=== PATIENT | female | born 1945 | race Caucasian/White ===

== ENCOUNTER 2017-03-01 17:47 | Inpatient (IN) | payer MEDICARE, OTHER ==
[~2017-03-01] VITALS: Ht 154.9 cm; Wt 102.4 kg
[~2017-03-01 17:47] MED LIST: /DULO30CA OR; /ROPI5TA OR; ACET30TAB PO; ALBU17IN INH; ALBU17IN2 INH; ALLO100T OR; AMIT25TA2 OR; AMIT50TA PO; ASPI81TA83 OR; BACT800T5 PO; BISO5TAB5 PO; BUME1TA PO; BUTA1CAP PO; CAND16TA OR; COMBVENT INH; COZA25TA8 OR; DRIS50002 PO; FIORCAP3 PO; GLUC1000 OR; GLUCTAB PO; HYDR-3713 PO; K-TA10TA2 PO; LASI40TA OR; LEVE750XR PO; LIPI80TA PO; MECL-68 PO; METF-414 PO; MILKSUS PO; MYSO50TA5 PO; NEOSLIQ TOP; NITR0.4S SL; OMEP20TA7 OR; PERC5TAB8 OR; PROTPAK PO; ROPI3TAB PO; SPIR25TA2 PO; TRAM50TA2 OR; TYLETAB3 PO; VENL150C43 PO; VITAMIN D50000 UNT OR; VOLT1GEL EX; XANA0.25 OR; ZEBE5TAB PO; ZIAC2.5T PO; ZOCO40TA OR; [UNRECOGNIZED DRUG - CODE] OR
[2017-03-01] MEDS ORDERED: LASI40TA PO (18:05)
[2017-03-01] MEDS ORDERED: PLAV75TA38 PO (18:05)
[2017-03-01] MEDS ORDERED: OXYC20TA2 PO (18:05)
[2017-03-01] MEDS ORDERED: ONDANSETRON 4MG/2ML VIAL (J2405) IV ONE (19:45)
[2017-03-01] MEDS ORDERED: MORPHINE 4 MG/ML 1ML SYRINGE IV ONE (19:45)
[2017-03-01 20:27] LABS: BASO % 0.4 % (0.0-1.0); EOS # 0.5 K/mm3 (0.0-0.50); EOS % 5.6 % (0.0-3.0); LARGE UNSTAINED CELL # 0.2 K/mm3 (0.0-0.4); LARGE UNSTAINED CELL % 1.8 % (0.0-4.0); LYMPH # 1.8 K/mm3 (1.5-4.5); LYMPH % 21.7 % (24.0-44.0); MEAN CORPUSCULAR HEMOGLOBIN 27.9 pg (27.0-33.0); MEAN CORPUSCULAR HGB CONC 31.8 g/dl (32.0-36.5); MEAN CORPUSCULAR VOLUME 87.7 fl (80.0-96.0); MONO # 0.5 K/mm3 (0.0-0.8); MONO % 6.1 % (0.0-5.0); NEUTROPHILS # 5.4 K/mm3 (1.8-7.7); NEUTROPHILS % 64.3 % (36.0-66.0); PLATELET COUNT, AUTOMATED 263 k/mm3 (150-450); RED CELL DISTRIBUTION WIDTH 14.9 % (11.5-14.5); WHITE BLOOD COUNT 8.4 K/mm3 (4.0-10.0)
[2017-03-01 20:50] LABS: CALCIUM LEVEL 9.3 MG/DL (8.8-10.2); CREATININE FOR GFR 1.29 MG/DL (0.55-1.02); GLOMERULAR FILTRATION RATE 43.4 (>39); POTASSIUM SERUM 4.3 MEQ/L (3.5-5.1)
[2017-03-01] MEDS: HumaLOG INSULIN (NovoLOG) PER UNIT SC SCH (21:00)
[2017-03-01] MEDS ORDERED: MORPHINE 4 MG/ML 1ML SYRINGE IV PRN (22:00)
[2017-03-01] MEDS ORDERED: ONDANSETRON 4MG/2ML VIAL (J2405) IV PRN (22:45)
[2017-03-01] MEDS ORDERED: BUME1TA PO (23:08)
[2017-03-01] MEDS ORDERED: LEVE750T5 PO (23:08)
[2017-03-01] MEDS ORDERED: VITA500T3 PO (23:14)
[2017-03-01] MEDS ORDERED: METO25TA74 PO (23:14)
[2017-03-01] MEDS ORDERED: GABA-283 PO (23:14)
[2017-03-01] MEDS ORDERED: PANT40TA2 PO (23:14)
[2017-03-01] MEDS ORDERED: NITR0.4S14 SL (23:14)
[2017-03-01] MEDS ORDERED: MAG-TAB PO (23:14)
[2017-03-01] MEDS ORDERED: EFFE75CA75 PO (23:14)
[2017-03-01] MEDS ORDERED: VITA100037 PO (23:14)
[2017-03-01] MEDS ORDERED: AMLO5TAB2 PO (23:14)
[2017-03-01] MEDS ORDERED: REQU4TAB3 PO (23:14)
[2017-03-01] MEDS ORDERED: ANAS1TAB PO (23:14)
[2017-03-01] MEDS ORDERED: POTA10TA16 PO (23:14)
[2017-03-01] MEDS ORDERED: OXYC10TA12 PO (23:14)
[2017-03-01] MEDS ORDERED: NITROGLYCERIN 0.4 MG SUBL TABLET SL PRN (23:30)
[2017-03-01] MEDS ORDERED: ALBUTEROL 90 MCG/ACT 8GM HFA INHALER INH PRN (23:30)
[2017-03-01] MEDS ORDERED: GLUCAGON FOR INJ 1 MG VIAL (J1610) SC PRN (23:30)
[2017-03-01] MEDS ORDERED: GLUCOSE 4 GM CHEW TABLET PO PRN (23:30)
[2017-03-01] MEDS ORDERED: DEXTROSE 50% 50 ML SYRINGE IV PRN (23:30)
[2017-03-02] VITALS (10 sets, daily range): BP systolic 116–175; BP diastolic 5–73
[2017-03-02] MEDS: AMITRIPTYLINE 50 MG TAB PO SCH ×3 (00:13→20:24)
[2017-03-02] MEDS: levETIRAcetam 250MG TABLET (KEPPRA) PO SCH ×3 (00:14→20:24)
[2017-03-02] MEDS: GABAPENTIN 400 MG CAP PO SCH ×2 (00:14→20:24)
[2017-03-02] MEDS: PANTOPRAZOLE 40MG TAB (PROTONIX) PO SCH ×3 (00:15→20:24)
[2017-03-02] MEDS: rOPINIRole 1MG TAB PO SCH ×3 (00:16→20:23)
[2017-03-02] MEDS: oxyCODONE 5MG TAB PO PRN ×2 (00:18→12:59)
[2017-03-02] MEDS: ACETAMINOPHEN TAB 650MG DOSE (2X325MG) PO PRN ×2 (02:28→20:24)
[2017-03-02] MEDS ORDERED: HEPARIN SOD (PORCINE) 5000 UNITS/ML VIAL SC SCH (06:00)
--- NOTE | 2017-03-02 06:11 | HPE ---
DATE OF ADMISSION: 03/01/2017 PRIMARY CARE PROVIDER: Dr. Rosa Lipscomb. CHEF MANAGER: Dr. Ed Reyna. NEUROLOGIST: Dr. Guillory GASTROINTESTINAL SPECIALIST: Dr. Brown. HISTORY OF PRESENT ILLNESS: Patient is a 71-year-old female with a past medical history significant for congestive heart failure, seizure disorder, chronic kidney disease (CKD), diabetes, "liver cirrhosis," rheumatoid arthritis , abdominal hernia status post surgical repair, questionable cerebrovascular accident (CVA). Patient also has a history of rheumatoid arthritis, but patient could not take any medications. Patient was told she has liver cirrhosis, diagnosed by Dr. Brown, and it was suspected it was drug induced. She presented to [facility] on 03/01/2017 after a syncopal episode. Patient was traveling between [place] and [place] on 03/01/2017. When patient was trying to take the garbage out, patient fell on her porch. Patient does not have recollection how long she passed out. After she regained consciousness, she was on the ground for 20 minutes due to inability to get up from the ground. The whole event was unwitnessed. After 20 minutes of lying on the floor patient calling for help, then patient was brought in by the ambulance. Patient denies any tongue biting, loss of bowel or bladder control. No similar episode occurred in the past, but patient noted to have frequent falls in the last 1-2 years. Denies any associated symptoms. Patient was hospitalized for [place] in [facility] in [place] for micro stroke versus transient ischemic attack (TIA). Patient was not sure about the diagnosis. Patient does have seizure disorder, and patient stated she has been very compliant with her medications. MEDICAL HISTORY: 1. Congestive heart failure. Patient unsure about the type. 2. Seizure disorder, followed by Dr. Guillory in the past. 3. CKD. 4. Diabetes. 5. "Liver cirrhosis." 6. Rheumatoid arthritis. 7. CVA in December 2016. 8. Chronic abdominal open wound for 3 years, resolved in the last 3 weeks. 9. Abdominal hernia status post surgical repair. 10. History of diverticulitis. PAST SURGICAL HISTORY: 1. Colon resection. 2. Bilateral knee replacements. 3. Lymph node biopsy and lumpectomy. ALLERGIES: SOFI INHIBITOR (cough), BUPROPION (weight gain, CIPROFLOXACIN ( unable to ambulate with dizziness and frequent falls), PENTAZOCINE. SOCIAL HISTORY: Denied tobacco use. Drinks alcohol occasionally. Denies recreational drug use. Patient full code. HOME MEDICATIONS: - albuterol two puff inhalation every 4 hours as needed - amitriptyline 50 mg by mouth twice a day - amlodipine 5 mg by mouth daily - anastrozole 1 mg by mouth daily - Lipitor 80 mg by mouth daily - bisoprolol 2.5 mg by mouth daily - bumetanide 1 mg by mouth at bedtime - Plavix 75 mg by mouth daily - vitamin B12 at 1000 mcg by mouth daily - Lasix 40 mg by mouth daily - gabapentin 400 mg by mouth at bedtime - levetiracetam 750 mg by mouth twice a day - magnesium chloride 70 mg by mouth twice a day - metformin 1000 mg by mouth daily - metoprolol succinate 25 mg by mouth daily - nitroglycerine 0.4 mg sublingual as needed for chest pain - oxycodone 10 mg by mouth twice a day as needed - pantoprazole 40 mg by mouth twice a day - potassium chloride 10 mEq by mouth daily - Requip 4 mg by mouth twice a day - spironolactone 25 mg by mouth daily - Effexor 75 mg by mouth daily - vitamin D 50,000 units by mouth weekly on Sundays REVIEW OF SYSTEMS: GENERAL: No fever. No chills. HEENT: No vision change. No auditory changes. CARDIOVASCULAR: No chest pain. No palpitations. History of congestive heart failure with unknown type. RESPIRATORY: Denies any cough or sputum production. No wheezes. GASTROINTESTINAL: Patient was diagnosed with liver cirrhosis by Dr. Brown many years ago, and it was suspected to be medication induced. Patient also had colon resection from previous infection. Patient also had abdominal hernia, status post surgical repair. Denies any nausea, vomiting, abdominal pain, or diarrhea. MUSCULOSKELETAL: History of rheumatoid arthritis, not on any active treatments. Patient has chronic joint pain, which causes gait instability, and patient has frequent falls in the last 1-2 years. NEUROLOGIC: History of seizure disorders. States she is compliant with the medications. Patient was diagnosed with CVA in [facility] in [place] 2 months ago. Patient had unwitnessed loss of consciousness on 2016. Patient had decreased sensation in the lower extremities. Denies any new numbness or tingling. PHYSICAL EXAMINATION: VITAL SIGNS: Temperature is 97.6, pulse is 55, respirations 18, blood pressure is 146/110, pulse oxygenation 95% in room air. GENERAL: Morbidly obese. No sign of acute distress. Alert and oriented times three. HEENT: Normocephalic, atraumatic. Extraocular motion grossly intact. CARDIOVASCULAR: Distant heart sounds. Positive S1, S2, regular rate. LUNGS: Clear to auscultation bilaterally. No wheezes or rhonchi. ABDOMEN: Morbidly obese. Abdomen is soft, nontender, nondistended. Bowel sounds present. There is old surgical scar from previous abdominal surgery. There is a healing wound near the umbilicus. No drainage. No bleeding. No foul smell. LOWER EXTREMITIES: Mild pitting edema bilaterally. No sign of cyanosis. There is mild deformity of the feet, more significant on the left foot. NEUROLOGIC: Sensation to fine touch decreased, bilateral lower feet. Otherwise , sensation to fine touch grossly intact. Muscle strength 5/5. LABORATORY DATA: WBC is 8.4, hemoglobin 11, hematocrit 34.6, platelet count is 263. Sodium is 143, potassium 4.3, chloride 103, carbon dioxide 33, BUN 32, creatinine 1.29, GFR is 43.4, fasting glucose 89, calcium is 9.3. Troponin I is less than 0.02. TSH 2.6. Alcohol level is normal. IMAGING STUDIES: CT of the chest without contrast: Official report pending. Preliminary results show no acute findings. CT of the head without contrast: Official report pending. No preliminary report available. ASSESSMENT AND PLAN: 1. Syncope. Patient admitted to progressive care unit (PCU) under inpatient status. Differential includes seizure disorder versus symptomatic bradycardia versus medication induced. Patient will have an electroencephalogram (EEG). Will follow with MRI of the brain. Will obtain the medical record from Dr. Rosa Lipscomb in [place], [place]. Will also obtain the record from [facility]. After patient's medication reviewed by the medication historian, it showed several conflicts. For example, patient is taking two beta blockers and two loop diuretics. Patient is taking bisoprolol and metoprolol. Patient also taking Lasix and Bumex. It does raise concern for patient's care. Patient is also taking a significant amount of neurological medications for seizures, restless legs, and patient is also taking multiple psychiatric medications. All those medications can cause patient's syncope; however, those medications cannot stop abruptly. 2. Congestive heart failure with unknown type. We do not have echocardiogram in [facility]. Will follow with new echo tomorrow. One of patient' s loop diuretics is discontinued. Patient is continued on spironolactone. Currently, patient does not show significant sign of fluid overload. 3. Chronic kidney disease. Continue to monitor. 4. Diabetes. Follow with A1c. Patient is on sliding scale and consistent- carbohydrate diet. 5. Questionable liver cirrhosis, diagnosed by Dr. Brown many years ago. Per patient, patient was taking some stomach medication, and patient was told the medication was withdrawn from the market due to side effects for causing liver cirrhosis, but patient does not remember the name of the medication. Will follow with a hepatitis panel and will follow with . Will check ammonia level tomorrow. 6. History of rheumatoid arthritis, not on any active treatments. 7. CVA. Per patient, patient was told she had either transient ischemic attack (TIA) versus micro stroke. The patient was hospitalized in [facility] in [place], [place] [id number]. Will obtain the record. Patient is on aspirin, Plavix, and atorvastatin. 8. Abdominal hernia, status post surgical repair, plus patient history of colon resection for infection. 9. History of chronic open wound near the umbilicus. Patient had a chronic wound for 3 years. Patient had followup with wound clinic in the past, and the wound has healed in the last 3 weeks. 10. History of restless legs syndrome. Continue home medications. 11. Seizure disorder. Patient is on Keppra. 12. Deep venous thrombosis (DVT) prophylaxis. Patient will be on thromboembolic deterrents (TEDs) and sequential compression devices. MTDD
--- NOTE | 2017-03-02 06:45 | ECGEPIP ---
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
[2017-03-02] MEDS: HumaLOG INSULIN (NovoLOG) PER UNIT SC SCH ×4 (07:28→20:26)
--- NOTE | 2017-03-02 07:39 | REP ---
Clinical: Syncope . Findings: Age-related atrophy and microvascular ischemic changes are appreciated. The ventricles and sulci are symmetric. Mitchell-white differentiation is maintained. There is no evidence for acute intracranial hemorrhage, mass/mass effect, pathology or infarction. No extra-axial fluid collection. Calvarium is intact. Paranasal sinuses and mastoid air cells are clear. Impression: Age related atrophy and microvascular ischemic changes. No acute intracranial hemorrhage, infarction, or mass/mass effect. Signed by Crow Charles MD 03/01/2017 07:59 P
--- NOTE | 2017-03-02 08:18 | REP ---
BILATERAL HIP RADIOGRAPHS: CLINICAL: Trauma. Fall. TECHNIQUE: Neutral and frog lateral views of the bilateral hips. COMPARISON: 04/18/2012 Moderate to early advanced symmetric degenerative changes noted. No acute fracture or dislocation. Surrounding soft tissues are unremarkable. IMPRESSION: Moderate to early advanced symmetric degenerative changes. No acute fracture or dislocation. MTDD
[2017-03-02 08:26] LABS: INR 1.23
[2017-03-02 08:29] LABS: MEAN CORPUSCULAR HEMOGLOBIN 27.5 pg (27.0-33.0); MEAN CORPUSCULAR HGB CONC 31.6 g/dl (32.0-36.5); RED CELL DISTRIBUTION WIDTH 14.8 % (11.5-14.5); WHITE BLOOD COUNT 5.8 K/mm3 (4.0-10.0)
--- NOTE | 2017-03-02 08:32 | REP ---
Clinical: Back and rib pain with recent trauma. Findings: The bilateral lung zepeda are well-aerated, symmetric and clear. Minimal scattered age-related interstitial changes are identified primarily involving the left lower lobe. No focal consolidation/contusion, nodule or mass lesion. No pleural effusion/reaction or pneumothorax. Tracheobronchial tree is patent. The mediastinum demonstrates atherosclerotic changes to the thoracic aorta and coronary arteries without aortic aneurysm, cardiomegaly or pericardial effusion. No obvious adenopathy. Surrounding musculoskeletal structures demonstrate age-related degenerative changes without obvious acute trauma/injury. Limited evaluation of the upper abdomen demonstrates normal bilateral adrenal glands as well as evidence of prior gastric bypass surgery and cholecystectomy. Impression: Age-related and postsurgical changes. No acute mediastinal or pleuroparenchymal process appreciated. No evidence for acute injury/trauma. Signed by Crow Charles MD 03/02/2017 08:23 A
[2017-03-02 08:35] LABS: ALBUMIN 3.1 GM/DL (3.2-5.2); ALBUMIN/GLOBULIN RATIO 0.84 (1.00-1.93); BILIRUBIN,TOTAL 0.3 MG/DL (0.2-1.0); CALCIUM LEVEL 8.4 MG/DL (8.8-10.2); CREATININE FOR GFR 1.3 MG/DL (0.55-1.02); POTASSIUM SERUM 4.2 MEQ/L (3.5-5.1); TOTAL PROTEIN 6.8 GM/DL (6.4-8.2)
[2017-03-02] MEDS: VITAMIN D 1,000 INTERNATIONAL UNITS TABLET PO SCH (08:53)
[2017-03-02] MEDS: ATORVASTATIN 20 MG TAB PO SCH (08:53)
[2017-03-02] MEDS: CLOPIDOGREL 75 MG TAB PO SCH (08:53)
[2017-03-02] MEDS: POTASSIUM CHLORIDE 10 MEQ SR TABLET PO SCH (08:54)
[2017-03-02] MEDS: VENLAFAXINE **XR** 75MG CAPSULE PO SCH (08:54)
[2017-03-02] MEDS: ANASTROZOLE 1 MG TAB PO SCH (08:55)
[2017-03-02] MEDS: CYANOCOBALAMIN 500 MCG TAB PO SCH (08:56)
[2017-03-02] MEDS: amLODIPine 5 MG TAB PO SCH (08:56)
[2017-03-02] MEDS ORDERED: SPIRONOLACTONE 25 MG TAB PO SCH (09:00)
[2017-03-02] MEDS ORDERED: FUROSEMIDE 40 MG TAB PO SCH (09:00)
--- NOTE | 2017-03-02 09:15 | REP ---
BILATERAL KNEE RADIOGRAPHS: CLINICAL: Trauma. Fall. TECHNIQUE: AP and lateral views of the right and left knee. COMPARISON: 04/06/2011. FINDINGS: Patient is status post bilateral knee arthroplasty. Age related changes and postsurgical degenerative changes are appreciated. No acute fracture or dislocation. IMPRESSION: Status post bilateral arthroplasty. No acute fracture or dislocation. Unreviewed
--- NOTE | 2017-03-02 13:09 | REP ---
MRI BRAIN WITHOUT CONTRAST: 03/02/2017 COMPARISON: CT brain 03/01/2017, MRI brain 02/26/2011. CLINICAL HISTORY: History of CVA, syncope. TECHNIQUE: Sagittal T1, axial T1, T2, FLAIR, gradient echo, diffusion-weighted images, and ADC mapping sequences performed. FINDINGS: The axial images show ventricles midline, symmetric, and without dilatation or displacement from the midline. The basal ganglia show no significant or focal abnormalities. Third and fourth ventricles intact. There are numerous deep central and subcortical white matter hyperintense T2 and FLAIR foci in both hemispheres, similar to previous study. I do not see evidence of acute infarct, edema, mass, mass effect, or hemorrhage within the parenchymal or cerebral hemispheres. There is no extra-axial fluid collection. Midline shows the corpus callosum, optic chiasm, and pituitary intact. Posterior fossa of the brainstem is intact. The cerebellum shows no atrophy or mass. There is no intra- or extra-axial hemorrhage in the posterior fossa. Basal cisterns unremarkable. The seventh/eighth cranial nerves and mastoids intact. Visualized sinuses unremarkable. Orbits and contents intact. The diffusion-weighted images and ADC mapping sequences show no evidence of acute ischemia. IMPRESSION: 1. Chronic small vessel white matter ischemic changes of aging in both cerebral hemispheres with no evidence of significant atrophy, intracranial hemorrhage, mass, mass effect, or edema. 2. Posterior fossa intact. Basal cisterns intact with visualized sinuses and mastoids clear. Diffusion-weighted images unremarkable. Signed by Reji Mejia MD 03/02/2017 01:28 P
[2017-03-03] MEDS: oxyCODONE 5MG TAB PO PRN ×3 (00:19→16:26)
[2017-03-03 04:51] VITALS: BP_SYST 113; BP_SYST 81; BP_SYST 96; BP_DIAS 49; BP_DIAS 51; BP_DIAS 56
[2017-03-03 05:11] LABS: MEAN CORPUSCULAR HEMOGLOBIN 27.9 pg (27.0-33.0); MEAN CORPUSCULAR HGB CONC 31.5 g/dl (32.0-36.5); MEAN CORPUSCULAR VOLUME 88.5 fl (80.0-96.0); RED CELL DISTRIBUTION WIDTH 14.6 % (11.5-14.5); WHITE BLOOD COUNT 7.2 K/mm3 (4.0-10.0)
[2017-03-03 05:29] LABS: ALBUMIN 2.9 GM/DL (3.2-5.2); ALBUMIN/GLOBULIN RATIO 0.73 (1.00-1.93); BILIRUBIN,TOTAL 0.3 MG/DL (0.2-1.0); CALCIUM LEVEL 8.4 MG/DL (8.8-10.2); CREATININE FOR GFR 1.49 MG/DL (0.55-1.02); GLOMERULAR FILTRATION RATE 36.7 (>39); POTASSIUM SERUM 4.2 MEQ/L (3.5-5.1); TOTAL PROTEIN 6.9 GM/DL (6.4-8.2)
[2017-03-03] MEDS ORDERED: SODIUM CHLORIDE 0.9% 1000 ML IV ONE (05:30)
[2017-03-03 07:30] VITALS: BP 116/58
[2017-03-03] MEDS: HumaLOG INSULIN (NovoLOG) PER UNIT SC SCH ×4 (07:30→20:39)
--- NOTE | 2017-03-03 08:09 | IPNPDOC ---
Subjective Date Seen The patient was seen on 03/02/17. Subjective Chief Complaint/HPI The patient is a 71-year-old female admitted with a reason for visit of Syncope. General: Denies: ROS Unobtainable, Chills, Night Sweats, Fatigue, Malaise, Normal Appetite, Other Symptoms Constitutional: Denies: Chills, Fever, Malaise, Night Sweats, Weakness, Fatigue , Weight Loss, Lethargy, Other Eyes: Denies: Pain, Vision change, Conjunctivae inflammation, Eyelid inflammation, Redness, Other ENT: Denies: Head Aches, Ear Pain, Dysphagia, Sinus Congestion, Post Nasal Drip , Sore Throat, Epistaxis, Other Symptoms Skin: Denies: Rash, Lesions, Jaundice, Bruising, Itching, Dry, Breakdown, Nail Changes, Other Pulmonary: Denies: Dyspnea, Cough, Pleuritic Chest Pain, Other Symptoms Cardiovascular: Denies: Chest Pain, Palpitations, Orthopnea, Paroxysmal Noc. Dyspnea, Edema, Lt Headedness, Other Symptoms Gastrointestinal: Denies: Nausea, Vomiting, Abdominal Pain, Diarrhea, Constipation, Melena, Hematochezia, Other Symptoms Objective Physical Examination General Exam: Positive: Alert, Cooperative, No Acute Distress Eye Exam: Positive: Conjunctiva & lids normal, EOMI, Negative: Sclera icteric ENT Exam: Positive: Atraumatic Neck Exam: Positive: Supple Chest Exam: Positive: Clear to auscultation, Normal air movement Heart Exam: Positive: Rate Normal, Regular Rhythm Telemetry: Positive: No significant arrhythmia Abdomen Exam: Positive: Normal bowel sounds, Soft, Negative: Tenderness Extremity Exam: Positive: Edema Psych Exam: Positive: Oriented x 3 Assessment /Plan Problems (1) Syncope Status: Acute Discussed With: Patient Problem Specific Plan: Consult Specialist, Monitor Clinically, Repeat Labs, Repeat Tests Problem Text: Unclear etiology. Telemetry monitoring, EEG, MRI brain. Check orthostatics. (2) CHF (congestive heart failure) Status: Chronic Discussed With: Patient Problem Specific Plan: Monitor Clinically (3) Seizure disorder Status: Chronic Discussed With: Patient Problem Specific Plan: Monitor Clinically, Repeat Labs Problem Text: Raiza. Check levels. (4) CKD (chronic kidney disease) Status: Chronic Discussed With: Patient Problem Specific Plan: Repeat Labs Problem Text: nephrology c/s pending lasix/aldactone on hold ua pending (5) Diabetes Status: Chronic Discussed With: Patient Problem Specific Plan: Repeat Labs Problem Text: ISS (6) Rheumatoid arthritis (7) CVA (cerebral vascular accident) Status: Chronic Discussed With: Patient Problem Specific Plan: Monitor Clinically Problem Text: As per patient. Continue asa,plavix,atorvastatin. (8) Incisional hernia Status: Acute (9) HTN (hypertension) Status: Chronic Discussed With: Patient Problem Specific Plan: Monitor Clinically, Repeat Tests Problem Text: norvasc as per home meds patient is orthostatic lasix/aldactone on hold Plan/VTE VTE Prophylaxis Ordered?: Yes (mechanical) Plan Diet: Continue Current Activity: Continue Current Therapy: PT Diagnostics: Repeat Labs in AM Anticipated Discharge: Home With Services, Assisted Living VS, I&O, [facility] Vital Signs/I&O Vital Signs Date Time Temp Pulse Resp B/P (MAP) Pulse Ox O2 Delivery O2 Flow Rate FiO2 03/02/17 08:56 50 133/67 03/02/17 08:00 98.0 18 98 Room Air Laboratory Data 24H LABS Laboratory Tests 2 03/01/17 20:18: White Blood Count 8.4, Red Blood Count 3.95L, Hemoglobin 11.0L, Hematocrit 34.6L , Mean Corpuscular Volume 87.7, Mean Corpuscular Hemoglobin 27.9, Mean Corpuscular Hemoglobin Concent 31.8L, Red Cell Distribution Width 14.9H, Platelet Count 263, Neutrophils (%) (Auto) 64.3, Lymphocytes (%) (Auto) 21.7L, Monocytes (%) (Auto) 6.1H, Eosinophils (%) (Auto) 5.6H, Basophils (%) (Auto) 0.4 , Neutrophils # (Auto) 5.4, Lymphocytes # (Auto) 1.8, Monocytes # (Auto) 0.5, Eosinophils # (Auto) 0.5, Basophils # (Auto) 0.0, Large Unclassified Cells % 1.8 , Large Unclassified Cells # 0.2, Anion Gap 7L, Glomerular Filtration Rate 43.4 , Blood Urea Nitrogen 32H, Creatinine 1.29H, Sodium Level 143, Potassium Level 4.3, Chloride Level 103, Carbon Dioxide Level 33H, Calcium Level 9.3, Total Creatine Kinase 121, Creatine Kinase MB 1.3, Creatine Kinase MB Relative Index 1.07, Troponin I < 0.02, Thyroid Stimulating Hormone (TSH) 2.610, Ethyl Alcohol Level 0.004 03/01/17 20:32: Bedside Glucose (Misc Panel) 97 03/01/17 23:28: Bedside Glucose (Misc Panel) 103 03/02/17 08:04: Anion Gap 6L, Glomerular Filtration Rate 43.0, Blood Urea Nitrogen 32H, Creatinine 1.30H, Sodium Level 144, Potassium Level 4.2, Chloride Level 103, Carbon Dioxide Level 35H, Calcium Level 8.4L, Prothrombin Time 15.6H, Prothromb Time International Ratio 1.23, Estimated Mean Plasma Glucose 108, Hemoglobin A1c 5.4, Aspartate Amino Transf (AST/SGOT) 68H, Alanine Aminotransferase (ALT/ SGPT) 40, Alkaline Phosphatase 93, Total Bilirubin 0.3, Total Protein 6.8, Albumin 3.1L, B-Type Natriuretic Peptide 180H, Albumin/Globulin Ratio 0.84L CBC/BMP Laboratory Tests 03/01/17 20:18 Red Blood Count 3.95 L, Mean Corpuscular Volume 87.7, Mean Corpuscular Hemoglobin 27.9, Mean Corpuscular Hemoglobin Concent 31.8 L, Red Cell Distribution Width 14.9 H, Neutrophils (%) (Auto) 64.3, Lymphocytes (%) (Auto) 21.7 L, Monocytes (%) (Auto) 6.1 H, Eosinophils (%) (Auto) 5.6 H, Basophils (%) (Auto) 0.4, Neutrophils # (Auto) 5.4, Lymphocytes # (Auto) 1.8, Monocytes # ( Auto) 0.5, Eosinophils # (Auto) 0.5, Basophils # (Auto) 0.0, Calcium Level 9.3 03/02/17 08:04 Red Blood Count 3.50 L, Mean Corpuscular Volume 87.0, Mean Corpuscular Hemoglobin 27.5, Mean Corpuscular Hemoglobin Concent 31.6 L, Red Cell Distribution Width 14.8 H, Calcium Level 8.4 L, Aspartate Amino Transf (AST/SGOT ) 68 H, Alanine Aminotransferase (ALT/SGPT) 40, Alkaline Phosphatase 93, Total Bilirubin 0.3, Total Protein 6.8, Albumin 3.1 L MARIAELENA DONIS MD March 02, 2017 10:18
--- NOTE | 2017-03-03 08:16 | IPNPDOC ---
Subjective Date Seen The patient was seen on 03/03/17. Subjective Chief Complaint/HPI The patient is a 71-year-old female admitted with a reason for visit of Syncope. General: Denies: ROS Unobtainable, Chills, Night Sweats, Fatigue, Malaise, Normal Appetite, Other Symptoms Constitutional: Denies: Chills, Fever, Malaise, Night Sweats, Weakness, Fatigue , Weight Loss, Lethargy, Other Eyes: Denies: Pain, Vision change, Conjunctivae inflammation, Eyelid inflammation, Redness, Other ENT: Denies: Head Aches, Ear Pain, Dysphagia, Sinus Congestion, Post Nasal Drip , Sore Throat, Epistaxis, Other Symptoms Skin: Denies: Rash, Lesions, Jaundice, Bruising, Itching, Dry, Breakdown, Nail Changes, Other Pulmonary: Denies: Dyspnea, Cough, Pleuritic Chest Pain, Other Symptoms Cardiovascular: Denies: Chest Pain, Palpitations, Orthopnea, Paroxysmal Noc. Dyspnea, Edema, Lt Headedness, Other Symptoms Gastrointestinal: Reports: Constipation, Denies: Nausea, Vomiting, Abdominal Pain, Diarrhea, Melena, Hematochezia, Other Symptoms Genitourinary: Denies: Dysuria, Frequency, Incontinence, Hematuria, Retention, Other Symptoms Musculoskeletal: Reports: Back Pain, Shoulder Pain Objective Physical Examination General Exam: Positive: Alert, Cooperative, No Acute Distress Eye Exam: Positive: Conjunctiva & lids normal, EOMI, Negative: Sclera icteric ENT Exam: Positive: Atraumatic Neck Exam: Positive: Supple Chest Exam: Positive: Clear to auscultation, Normal air movement Heart Exam: Positive: Rate Normal, Regular Rhythm Telemetry: Positive: No significant arrhythmia, Bradycardia (episodes of bradycardia?) Abdomen Exam: Positive: Normal bowel sounds, Soft, Negative: Tenderness Extremity Exam: Positive: Edema Psych Exam: Positive: Oriented x 3 Assessment /Plan Problems (1) Syncope Status: Acute Discussed With: Patient Problem Specific Plan: Consult Specialist, Monitor Clinically, Repeat Labs, Repeat Tests Problem Text: Unclear etiology. Telemetry monitoring, EEG MRI brain no acute pathology echo pending positive orthostatics. (2) CHF (congestive heart failure) Status: Chronic Discussed With: Patient Problem Specific Plan: Monitor Clinically (3) Seizure disorder Status: Chronic Discussed With: Patient Problem Specific Plan: Monitor Clinically, Repeat Labs Problem Text: Keppra. Check levels. (4) CKD (chronic kidney disease) Status: Chronic Discussed With: Patient Problem Specific Plan: Repeat Labs Problem Text: nephrology c/s pending lasix/aldactone on hold ua pending (5) Diabetes Status: Chronic Discussed With: Patient Problem Specific Plan: Repeat Labs Problem Text: ISS (6) Rheumatoid arthritis (7) CVA (cerebral vascular accident) Status: Chronic Discussed With: Patient Problem Specific Plan: Monitor Clinically Problem Text: As per patient. Continue asa,plavix,atorvastatin. (8) Incisional hernia Status: Acute (9) HTN (hypertension) Status: Chronic Discussed With: Patient Problem Specific Plan: Monitor Clinically, Repeat Tests Problem Text: norvasc as per home meds patient is orthostatic lasix/aldactone on hold Plan/VTE VTE Prophylaxis Ordered?: Yes (mechanical) Plan Diet: Continue Current Activity: Continue Current Therapy: PT Diagnostics: Repeat Labs in AM Anticipated Discharge: Home With Services, Assisted Living VS, I&O, 24H, [facility] Vital Signs/I&O Vital Signs Date Time Temp Pulse Resp B/P (MAP) Pulse Ox O2 Delivery O2 Flow Rate FiO2 03/03/17 04:51 99.7 60 18 113/56 (75) 93 Room Air 03/02/17 13:29 2.0 I&O- Last 24 Hours up to 6 AM 03/03/17 06:00 Intake Total 780 ml Output Total 675 ml Balance 105 ml Laboratory Data 24H LABS Laboratory Tests 2 03/02/17 10:41: Ammonia 16 03/03/17 04:35: Anion Gap 7L, Glomerular Filtration Rate 36.7L, Blood Urea Nitrogen 27H, Creatinine 1.49H, Sodium Level 141, Potassium Level 4.2, Chloride Level 101, Carbon Dioxide Level 33H, Calcium Level 8.4L, Aspartate Amino Transf (AST/SGOT) 40H, Alanine Aminotransferase (ALT/SGPT) 33, Alkaline Phosphatase 88, Total Bilirubin 0.3, Total Protein 6.9, Albumin 2.9L, Albumin/Globulin Ratio 0.73L CBC/BMP Laboratory Tests 03/03/17 04:35 Red Blood Count 3.78 L, Mean Corpuscular Volume 88.5, Mean Corpuscular Hemoglobin 27.9, Mean Corpuscular Hemoglobin Concent 31.5 L, Red Cell Distribution Width 14.6 H, Calcium Level 8.4 L, Aspartate Amino Transf (AST/SGOT ) 40 H, Alanine Aminotransferase (ALT/SGPT) 33, Alkaline Phosphatase 88, Total Bilirubin 0.3, Total Protein 6.9, Albumin 2.9 L MARIAELENA DONIS MD March 03, 2017 08:16
[2017-03-03] MEDS: CYANOCOBALAMIN 500 MCG TAB PO SCH (08:32)
[2017-03-03] MEDS: POTASSIUM CHLORIDE 10 MEQ SR TABLET PO SCH (08:32)
[2017-03-03] MEDS: CLOPIDOGREL 75 MG TAB PO SCH (08:32)
[2017-03-03] MEDS: VITAMIN D 1,000 INTERNATIONAL UNITS TABLET PO SCH (08:32)
[2017-03-03] MEDS: levETIRAcetam 250MG TABLET (KEPPRA) PO SCH ×2 (08:32→20:46)
[2017-03-03] MEDS: ATORVASTATIN 20 MG TAB PO SCH (08:32)
[2017-03-03] MEDS: PANTOPRAZOLE 40MG TAB (PROTONIX) PO SCH ×2 (08:32→20:45)
[2017-03-03] MEDS: amLODIPine 5 MG TAB PO SCH ×2 (08:34→09:00)
[2017-03-03] MEDS ORDERED: MOM 30ML SUSPENSION UDC PO PRN (09:15)
[2017-03-03] MEDS: AMITRIPTYLINE 50 MG TAB PO SCH ×2 (09:42→20:45)
[2017-03-03] MEDS: VENLAFAXINE **XR** 75MG CAPSULE PO SCH (09:42)
[2017-03-03] MEDS: rOPINIRole 1MG TAB PO SCH ×2 (09:42→20:46)
[2017-03-03] MEDS: ANASTROZOLE 1 MG TAB PO SCH (09:42)
[2017-03-03 12:00] VITALS: BP_SYST 118; BP_SYST 123; BP_DIAS 58; BP_DIAS 62
[2017-03-03 12:22] LABS: PERCENT SATURATION 18.8 % (13.2-37.4)
--- NOTE | 2017-03-03 13:30 | CR ---
DATE OF CONSULTATION: 03/03/2017 REQUESTING PHYSICIAN: Dr. Doug Mohamud CONSULTING PHYSICIAN: Griselda Wang MD REASON FOR CONSULTATION: Management of acute kidney injury superimposed on chronic kidney disease. CHIEF COMPLAINT: The patient was admitted on 03/01/2017 after an episode of syncope. HISTORY OF PRESENT ILLNESS: Radha Hickey is a 71-year-old female with past medical history of chronic kidney disease stage III. She follows up with Dr. Polanco as outpatient. Her baseline creatinine is around 1 to 1.2. She also has history of congestive heart failure and liver cirrhosis. The patient fell at her home on 03/01/2017. She was down for about 20 minutes. She was unconscious for a few minutes, but she was unable to pick herself up from the ground. Finally, her saw her, and ambulance was called. The patient was brought to the emergency room. She had a creatinine of 1.29 on admission, which has bumped up to 1.49. Nephrology service was called for help in management of acute kidney injury superimposed on chronic kidney disease. When I saw the patient today, she is afebrile, hemodynamically stable. She is not in any distress at this time. PAST MEDICAL HISTORY: Past medical history of chronic kidney disease stage III, history of seizure disorder, congestive heart failure, diabetes mellitus type 2, liver cirrhosis, rheumatoid arthritis, recent cerebrovascular accident (CVA) versus transient ischemic attack (TIA) in December 2016, history of abdominal hernias status post surgical repair in the past, and history of diverticulitis. PAST SURGICAL HISTORY: Status post colon resection in the past, bilateral knee replacement, status post hernia surgery, status post lymph node biopsy and lumpectomy. ALLERGIES: The patient allergic to SOFI INHIBITORS, BUPROPION, CIPROFLOXACIN, INTRAVENOUS (IV) CONTRAST MEDIA, LATEX, PENTAZOCINE, and SHELLFISH. HOME MEDICATIONS: The patient's home medications include: - albuterol as needed - amitriptyline 50 mg twice a day - amlodipine 5 mg daily - anastrozole 1 mg daily - Lipitor 80 mg daily - bisoprolol 2.5 mg daily - Bumex 1 mg by mouth at bedtime - Plavix 75 mg daily - vitamin B12 1000 mcg daily - Lasix 40 mg by mouth daily - gabapentin 400 mg at bedtime - Keppra 750 mg by mouth twice a day - magnesium chloride 70 mg by mouth twice a day - metformin 1 gram by mouth daily - metoprolol 25 mg daily - nitroglycerine 0.4 mg as needed for chest pain - oxycodone 10 mg twice a day as needed - Protonix 40 mg by mouth twice a day - potassium 10 mEq by mouth daily - Requip 4 mg by mouth twice a day - spironolactone 25 mg by mouth daily - Effexor 75 mg by mouth daily - vitamin D 50,000 units by mouth weekly on Sundays FAMILY HISTORY: No significant family history of end-stage renal disease requiring hemodialysis. The patient does report history of cirrhosis in her mother and mother's relatives. SOCIAL HISTORY: The patient spends 6 months in [place] and 6 months in [facility]. She denies any smoking, drug abuse, or alcohol abuse. She recently came back from [place]. REVIEW OF SYSTEMS: GENERAL: The patient denies any fever, chills, or weakness. HEENT: The patient denies any blurry vision or double vision. EARS, NOSE, AND THROAT (ENT): She denies any dysphagia, odynophagia, or ear discharge. CARDIOVASCULAR: She denies any palpitations. She does report history of congestive heart failure. RESPIRATORY: She denies any cough, wheezing, or shortness of breath. GASTROINTESTINAL (GI): The patient reports history of liver cirrhosis, but she denies any history of recurrent ascites requiring taps. The patient also reports history of abdominal hernia. Otherwise, she denies any nausea, vomiting. MUSCULOSKELETAL: She reports history of rheumatoid arthritis, but she denies any active immunosuppressive treatment at this time. CENTRAL NERVOUS SYSTEM (WHOLESALE BUYER): The patient reports history of seizure disorder. PSYCHIATRIC: She denies any history of depression or anxiety. HEMATOLOGICAL AND ONCOLOGICAL: The patient denies history of anemia or easy bruising. ENDOCRINE: The patient reports history of diabetes mellitus type 2. Takes metformin at home. All other review of systems is negative. PHYSICAL EXAMINATION: GENERAL: The patient is awake, alert, oriented times three, laying in bed, no apparent distress. VITAL SIGNS: Temperature is 98.7 degrees Fahrenheit, blood pressure is 116/58, pulse is 57, respiratory rate of 18, saturating 90% on room air. INTAKE AND OUTPUT: Urine output recorded is 375 mL yesterday, 850 mL so far today since overnight. Weight in the bed scale is 98.8 kg. HEAD AND NECK EXAMINATION: Extraocular muscles intact. Pupils equally round and reactive to light. Mucous membranes are moist. Neck is supple. There is no jugular venous distention (JVD). CARDIOVASCULAR: S1, S2. Regular rate. No murmur, rub, and gallop. RESPIRATORY: Chest is clear to auscultation bilaterally. Bilateral equal air entry. No rales or rhonchi. ABDOMEN: Is soft. Old abdominal surgical scars were seen. Nontender. Positive bowel sounds. EXTREMITIES: No clubbing or cyanosis. Pulses are 2+. There is trace edema of the bilateral lower extremities. CENTRAL NERVOUS SYSTEM (WHOLESALE BUYER): No focal neurological deficits. Power is 5/5 in all extremities. LABORATORY REVIEW: CBC showed a WBC 7.2, hemoglobin 10.5, platelets of 221. Urinalysis done today morning showed 2+ leukocyte esterase, 77 WBCs, 2+ bacteria, random urine creatinine is 90, random sodium is 52, potassium is 42.4. INR is 1.35. BMP showed sodium 141, potassium 4.2, chloride 101, bicarbonate 33, BUN is 27, creatinine is 1.4, GFR is 36.7, calcium is 8.4, albumin is 2.9. MICROBIOLOGY: Urine culture is pending. IMAGING: A renal ultrasound is not available yet. CURRENT INPATIENT MEDICATIONS: The patient's current inpatient medications were all reviewed by me. Her Lasix has already been stopped. Spironolactone has been stopped. The rest of the inpatient medications are almost the same as her outpatient medications. The patient was given a bolus of 250 mL of normal saline today morning. I do not see any other nephrotoxic medications in her inpatient medication list. ASSESSMENT: A 71-year-old female with past medical history of chronic kidney disease stage III, baseline creatinine of around 1 to 1.2, history of congestive heart failure, diabetes, and multiple other comorbidities, admitted this time because of syncope. Nephrology service following the patient for management of acute kidney injury. PLAN: 1. Acute kidney injury, most likely secondary to use of Lasix and spironolactone. The patient recently had a syncope. I am not sure whether the syncope was neurogenic or whether the patient was hypotensive when she fell. There are no hypotensive episodes in the hospital. I have ordered a renal ultrasound, as well. Urine culture is pending at this time. The patient was already given a small bolus of normal saline. Continue to hold the diuretic. Monitor renal function in the morning. 2. Liver cirrhosis. The patient's albumin level is 2.9. Urine sodium is 52. Unlikely that this is hepatorenal syndrome. The patient gives history of cirrhosis in her maternal side. She was already seeing hepatology, but I am just going to do iron levels, serum copper, urine copper, and serum ceruloplasmin level to rule out the possibility of hemochromatosis or Balta disease. 3. Hypertension. Continue current dose of Norvasc 5 mg by mouth daily. Blood pressure is acceptable at this time. 4. Seizure disorder. Continue Keppra at this time. The rest of the management is as per neurology service. 5. Anemia in chronic kidney disease. Hemoglobin is 10.5. I am going to check the iron levels; and if the iron levels are low, the patient will be given intravenous (IV) iron. 6. Metabolic alkalosis. Bicarbonate level is 33. It might have been secondary to dehydration. Diuretics have already been stopped. Monitor for now. No need of acetazolamide administration at this time. Thank you for involving us in the care of this patient. We shall be happy to follow the patient along with you tomorrow morning.
[2017-03-03 16:00] VITALS: BP 164/71
--- NOTE | 2017-03-03 16:12 | REP ---
Urinary tract sonography: History: Acute renal failure. Findings: Scanning at the level of the urinary bladder shows that the visualized bladder spivey are smooth. Renal cortical echogenicity pattern is felt to be slightly increased bilaterally consistent with chronic medical renal disease. There is no evidence of hydronephrosis on either side. No cyst, mass or calculus is seen. Right kidney measures 10.2 x 5.0 x 4.4 cm. Left renal dimensions are 10.1 x 5.6 x 5.4 cm. Impression: Mildly increased renal cortical echogenicity pattern consistent with chronic medical renal disease. Otherwise negative urinary tract sonography. Signed by Jatin Paul MD 03/03/2017 05:10 P
--- NOTE | 2017-03-03 19:35 | REP ---
Clinical: Pain with recent trauma. Technique: Internal rotation, external rotation, and Y view. Comparison: 05/24/2013. Findings: Age-related arthritic degenerative changes include cortical irregularity and inferior spurring at the acromioclavicular joint as well as subtle irregularity and blunting involving the glenoid rim. There is no evidence for acute fracture or dislocation. Impression: Age-related arthritic degenerative changes. No acute fracture dislocation. Signed by Crow Charles MD 03/03/2017 07:26 P
[2017-03-03 20:18] VITALS: BP_SYST 105; BP_SYST 108; BP_SYST 83; BP_DIAS 49; BP_DIAS 53; BP_DIAS 55
[2017-03-03] MEDS: GABAPENTIN 400 MG CAP PO SCH (20:45)
[2017-03-04 00:22] VITALS: BP 120/56
[2017-03-04 04:17] VITALS: BP_SYST 105; BP_SYST 119; BP_SYST 123; BP_DIAS 56; BP_DIAS 58; BP_DIAS 60
[2017-03-04 04:54] LABS: MEAN CORPUSCULAR HEMOGLOBIN 27.4 pg (27.0-33.0); MEAN CORPUSCULAR HGB CONC 31.9 g/dl (32.0-36.5); MEAN CORPUSCULAR VOLUME 85.9 fl (80.0-96.0); RED CELL DISTRIBUTION WIDTH 14.8 % (11.5-14.5); WHITE BLOOD COUNT 6.8 K/mm3 (4.0-10.0)
[2017-03-04 05:14] LABS: ALBUMIN 2.9 GM/DL (3.2-5.2); ALBUMIN/GLOBULIN RATIO 0.67 (1.00-1.93); BILIRUBIN,TOTAL 0.4 MG/DL (0.2-1.0); CALCIUM LEVEL 9.1 MG/DL (8.8-10.2); CREATININE FOR GFR 1.25 MG/DL (0.55-1.02); POTASSIUM SERUM 4.3 MEQ/L (3.5-5.1); TOTAL PROTEIN 7.2 GM/DL (6.4-8.2)
--- NOTE | 2017-03-04 06:41 | EEG ---
DATE OF PROCEDURE: 03/02/2017 REFERRING PHYSICIAN: Dr. Doug Mohamud DIAGNOSIS: Loss of consciousness. EEG NUMBER: [id number] HISTORY: The patient is a 71-year-old woman who was admitted at [facility] due to an episode of loss of consciousness. This EEG was done to rule out epileptic potential and degree of encephalopathy. She is currently on amitriptyline, amlodipine, Plavix, Lasix, gabapentin, spironolactone, Requip, Keppra, Effexor. TECHNICAL DESCRIPTION: This digital EEG was recorded by 21 scalp, ear and two EKG electrodes and was reviewed in bipolar and referential montages following reformatting in 10-20 international electrode placement system. INTERPRETATION: The patient was noted to be in awake and drowsy states during this EEG. Resting awake background rhythm consisted of 4-5 Hz theta activity with intermittent underlying generalized delta activity. Stage II sleep was recorded and was symmetric bilaterally. Hyperventilation could not be performed. Photic stimulation remained unremarkable. Electrocardiogram (EKG) revealed normal sinus rhythm. No focal, lateralizing or epileptiform abnormalities were seen. No clinical or electrographic seizures were recorded. CONCLUSION: This EEG in awake, drowsy states, stage II sleep is abnormal due to presence of generalized slowing and disorganization of background consistent with nonspecific diffuse cerebral dysfunction such as seen in encephalopathy due to multiple potential causes including toxic, metabolic, autoimmune, infectious, multifocal, structural brain abnormalities. Clinical correlation is recommended.
[2017-03-04 07:45] VITALS: BP 132/67
--- NOTE | 2017-03-04 07:47 | IPNPDOC ---
Subjective Date Seen The patient was seen on 03/04/17. Subjective Chief Complaint/HPI The patient is a 71-year-old female admitted with a reason for visit of Syncope. General: Denies: ROS Unobtainable, Chills, Night Sweats, Fatigue, Malaise, Normal Appetite, Other Symptoms Constitutional: Denies: Chills, Fever, Malaise, Night Sweats, Weakness, Fatigue , Weight Loss, Lethargy, Other Eyes: Denies: Pain, Vision change, Conjunctivae inflammation, Eyelid inflammation, Redness, Other ENT: Denies: Head Aches, Ear Pain, Dysphagia, Sinus Congestion, Post Nasal Drip , Sore Throat, Epistaxis, Other Symptoms Skin: Denies: Rash, Lesions, Jaundice, Bruising, Itching, Dry, Breakdown, Nail Changes, Other Pulmonary: Denies: Dyspnea, Cough, Pleuritic Chest Pain, Other Symptoms Cardiovascular: Denies: Chest Pain, Palpitations, Orthopnea, Paroxysmal Noc. Dyspnea, Edema, Lt Headedness, Other Symptoms Gastrointestinal: Denies: Nausea, Vomiting, Abdominal Pain, Diarrhea, Constipation, Melena, Hematochezia, Other Symptoms Genitourinary: Denies: Dysuria, Frequency, Incontinence, Hematuria, Retention, Other Symptoms Endocrine: Denies: Polydipsia, Polyphagia, Polyuria, Heat Intolerance, Cold Intolerance, Other Endocrine Sx Musculoskeletal: Reports: Shoulder Pain Objective Physical Examination General Exam: Positive: Alert, Cooperative, No Acute Distress Eye Exam: Positive: PERRLA, Conjunctiva & lids normal, EOMI, Negative: Sclera icteric ENT Exam: Positive: Atraumatic Neck Exam: Positive: Supple Chest Exam: Positive: Clear to auscultation, Normal air movement Heart Exam: Positive: Rate Normal, Regular Rhythm Telemetry: Positive: No significant arrhythmia, Bradycardia (episodes of bradycardia?) Abdomen Exam: Positive: Normal bowel sounds, Soft, Negative: Tenderness Extremity Exam: Positive: Edema Psych Exam: Positive: Oriented x 3 Assessment /Plan Problems (1) Syncope Status: Resolved Discussed With: Patient Problem Specific Plan: Consult Specialist, Monitor Clinically, Repeat Labs, Repeat Tests Problem Text: Unclear etiology - possibly orthostatic secondary to mild hypovolemia vs vasovagal no sig event on tele, no seizure activity on EEG MRI brain no acute pathology echo pending negative orthostatics (2) CHF (congestive heart failure) Status: Chronic Discussed With: Patient Problem Specific Plan: Monitor Clinically Problem Text: echo pending - compensated (3) Seizure disorder Status: Chronic Discussed With: Patient Problem Specific Plan: Monitor Clinically, Repeat Labs Problem Text: Raiza. Check levels. (4) CKD (chronic kidney disease) Status: Chronic Discussed With: Patient Problem Specific Plan: Repeat Labs Problem Text: nephrology c/s appreciated lasix/aldactone on hold ua postive for wbc, leukocyte esterase no urinary complaints ucx pending renal sono shows medical renal disease creatinine improved today jeet/hemochromatosis w/u pending (5) Diabetes Status: Chronic Discussed With: Patient Problem Specific Plan: Repeat Labs Problem Text: ISS (6) Rheumatoid arthritis (7) CVA (cerebral vascular accident) Status: Chronic Discussed With: Patient Problem Specific Plan: Monitor Clinically Problem Text: As per patient. Continue asa,plavix,atorvastatin. (8) Incisional hernia Status: Chronic (9) HTN (hypertension) Status: Chronic Discussed With: Patient Problem Specific Plan: Monitor Clinically, Repeat Tests Problem Text: norvasc as per home meds patient was orthostatic lasix/aldactone on hold Plan/VTE VTE Prophylaxis Ordered?: Yes (mechanical) Plan Diet: Continue Current Activity: Continue Current Therapy: PT Diagnostics: Repeat Labs in AM Anticipated Discharge: Home With Services, Assisted Living Continue to monitor renal function, hold nephrotoxic medications will follow up with nephro. PT eval/treat, 2d echo pending Transfer to floor. VS, I&O, 24H, Fishbone Vital Signs/I&O Vital Signs Date Time Temp Pulse Resp B/P (MAP) Pulse Ox O2 Delivery O2 Flow Rate FiO2 03/04/17 04:17 57 119/56 (77) 59 123/60 (81) 66 105/58 (74) 03/04/17 04:17 98.3 18 97 03/04/17 00:22 Room Air 03/02/17 13:29 2.0 I&O- Last 24 Hours up to 6 AM 03/04/17 06:00 Intake Total 2560 ml Output Total 1625 ml Balance 935 ml Laboratory Data 24H LABS Laboratory Tests 2 03/03/17 09:46: Urine Appearance HAZY, Urine Color YELLOW, Urine pH 5.0, Urine Specific [place] 1.012, Urine Protein NEGATIVE, Urine Glucose (UA) NEGATIVE, Urine Ketones NEGATIVE, Urine Urobilinogen 0.2, Urine Bilirubin NEGATIVE, Urine Leukocyte Esterase 2+H, Urine Blood NEGATIVE, Urine Nitrite NEGATIVE, Urine WBC (Auto) 77H , Urine RBC (Auto) 4H, Urine Hyaline Casts (Auto) 0, Urine Bacteria (Auto) 2+H, Urine Squamous Epithelial Cells 0, Urine Mucus (Auto) SMALL, Urine Sperm (Auto) , Urine Random Creatinine 90.1, Urine Random Sodium 52, Urine Random Potassium 42.4 03/03/17 11:19: Iron Level 58, Total Iron Binding Capacity 309, Transferrin % Saturation 18.8, Ferritin 29 03/03/17 11:20: 03/03/17 11:47: Bedside Glucose (Misc Panel) 106 03/03/17 16:29: Bedside Glucose (Misc Panel) 110 03/03/17 20:37: Bedside Glucose (Misc Panel) 99 03/04/17 04:29: Anion Gap 4L, Glomerular Filtration Rate 45.0, Blood Urea Nitrogen 24H, Creatinine 1.25H, Sodium Level 142, Potassium Level 4.3, Chloride Level 102, Carbon Dioxide Level 36H, Calcium Level 9.1, Aspartate Amino Transf (AST/SGOT) 23, Alanine Aminotransferase (ALT/SGPT) 27, Alkaline Phosphatase 88, Total Bilirubin 0.4, Total Protein 7.2, Albumin 2.9L, Albumin/Globulin Ratio 0.67L CBC/BMP Laboratory Tests 03/04/17 04:29 Red Blood Count 3.63 L, Mean Corpuscular Volume 85.9, Mean Corpuscular Hemoglobin 27.4, Mean Corpuscular Hemoglobin Concent 31.9 L, Red Cell Distribution Width 14.8 H, Calcium Level 9.1, Aspartate Amino Transf (AST/SGOT) 23, Alanine Aminotransferase (ALT/SGPT) 27, Alkaline Phosphatase 88, Total Bilirubin 0.4, Total Protein 7.2, Albumin 2.9 L Microbiology Microbiology 03/03/17 Urine Culture, Worksheet Pending MARIAELENA DONIS MD March 04, 2017 07:47
[2017-03-04] MEDS: HumaLOG INSULIN (NovoLOG) PER UNIT SC SCH ×4 (08:34→20:06)
[2017-03-04] MEDS: ATORVASTATIN 20 MG TAB PO SCH (08:35)
[2017-03-04] MEDS: levETIRAcetam 250MG TABLET (KEPPRA) PO SCH ×2 (08:38→21:25)
[2017-03-04] MEDS: VENLAFAXINE **XR** 75MG CAPSULE PO SCH (08:38)
[2017-03-04] MEDS: amLODIPine 5 MG TAB PO SCH (08:39)
[2017-03-04] MEDS: CLOPIDOGREL 75 MG TAB PO SCH (08:39)
[2017-03-04] MEDS: AMITRIPTYLINE 50 MG TAB PO SCH ×2 (08:40→21:25)
[2017-03-04] MEDS: ANASTROZOLE 1 MG TAB PO SCH (08:40)
[2017-03-04] MEDS: PANTOPRAZOLE 40MG TAB (PROTONIX) PO SCH ×2 (08:41→21:25)
[2017-03-04] MEDS: POTASSIUM CHLORIDE 10 MEQ SR TABLET PO SCH (08:41)
[2017-03-04] MEDS: VITAMIN D 1,000 INTERNATIONAL UNITS TABLET PO SCH (08:42)
[2017-03-04] MEDS: CYANOCOBALAMIN 500 MCG TAB PO SCH (08:43)
[2017-03-04] MEDS: rOPINIRole 1MG TAB PO SCH ×2 (08:45→21:25)
[2017-03-04] MEDS: oxyCODONE 5MG TAB PO PRN (10:58)
[2017-03-04 13:00] VITALS: BP 167/87
[2017-03-04 14:00] VITALS: BP_SYST 131; BP_SYST 159; BP_SYST 167; BP_DIAS 58; BP_DIAS 77; BP_DIAS 80
--- NOTE | 2017-03-04 15:22 | IPN ---
DATE: 03/04/2017 SUBJECTIVE: The patient was seen and examined at the bedside. Her renal function is improving. She does not have any active complaints. She is afebrile and hemodynamically stable. REVIEW OF SYSTEMS: The patient denies any fever, chills, rigors, headache, nausea, vomiting, chest pain, shortness of breath, pain abdomen, constipation, or diarrhea. Rest of review of systems is negative. OBJECTIVE: VITAL SIGNS: Temperature is 98.3 degrees Fahrenheit, blood pressure is 132/67, pulse is 67, respiratory rate of 18, saturating 96% on room air. INTAKE AND OUTPUT: Urine output recorded is 1.7 liters yesterday, 875 mL so far today since overnight. Weight in the bed scale is 99.8 kg. PHYSICAL EXAMINATION: GENERAL: The patient is awake, alert and oriented times three, laying in bed, in no apparent distress. HEAD AND NECK EXAMINATION: Extraocular muscles intact. Pupils equally round and reactive to light. Mucous membranes are moist. Neck is supple. There is no jugular venous distention (JVD). CARDIOVASCULAR: S1, S2, regular rate. No murmur, rub, or gallop. RESPIRATORY: Chest is clear to auscultation bilaterally. Bilateral equal air entry. No rales or rhonchi. ABDOMEN: Soft. Positive bowel sounds. Nontender. No ascites. No organomegaly. EXTREMITIES: No clubbing or cyanosis. Pulses are 2+. There is no edema of the bilateral lower extremities. CENTRAL NERVOUS SYSTEM (FLOOR WAXER): No focal neurological deficits. Power is 5/5 in all extremities. LABORATORY REVIEW: CBC showed a WBC of 6.8, hemoglobin is 10. BMP showed sodium 142, potassium 4.3, chloride 102, bicarbonate is 36, BUN is 24, creatinine is 1.2, albumin is 2.9. IMAGING STUDIES: A renal ultrasound was done yesterday which showed mildly increased cortical echogenicity consistent with chronic medical renal disease. Otherwise, no acute pathology. CURRENT INPATIENT MEDICATIONS: The patient's medications were all reviewed by me. There is not change in the medications today as compared with yesterday. Her oxycodone was stopped yesterday. ASSESSMENT: A 71-year-old female with a past medical history of chronic kidney disease stage III, baseline creatinine of around 1 to 1.2, history of congestive heart failure, diabetes and multiple other comorbidities, admitted this time because of syncope. Nephrology service following the patient for management of acute kidney injury. PLAN: 1. Acute kidney injury. It is most likely secondary to volume depletion with the use of Lasix and spironolactone. The patient was given a small bolus of normal saline. Diuretics were held. Creatinine is coming down. The patient should not get diuretics again. She will be evaluated as outpatient for any need to restart the diuretic regimen. 2. Liver cirrhosis. Management is as per gastroenterology (GI). The patient reports a history of cirrhosis in multiple family members. I ordered the iron levels which are adequate. Serum copper, urine copper, and serum ceruloplasmin levels are pending. 3. Hypertension. Blood pressure is acceptable at this time. Continue current dose of Norvasc 5 mg by mouth daily. 4. Anemia and chronic kidney disease. The patient's iron levels are adequate at this time. Hemoglobin is 10. No need of Aranesp administration at this time. Continue to monitor for now. 5. Metabolic alkalosis. The patient's bicarbonate is 36 at this time. It might have been secondary to volume depletion. No need of acetazolamide administration at this time.
[2017-03-04] MEDS: GABAPENTIN 400 MG CAP PO SCH (21:25)
[2017-03-04] MEDS: DOCUSATE SODIUM 100 MG CAP PO SCH (21:25)
[2017-03-04] MEDS: SENOKOT S TAB PO SCH (21:25)
[2017-03-04 22:00] VITALS: BP_SYST 123; BP_SYST 142; BP_SYST 157; BP_SYST 176; BP_DIAS 61; BP_DIAS 67; BP_DIAS 71; BP_DIAS 72
[2017-03-05] MEDS: oxyCODONE 5MG TAB PO PRN ×2 (05:59→20:29)
[2017-03-05 06:00] VITALS: BP 128/74
[2017-03-05 06:23] LABS: MEAN CORPUSCULAR HEMOGLOBIN 26.8 pg (27.0-33.0); MEAN CORPUSCULAR HGB CONC 31.3 g/dl (32.0-36.5); MEAN CORPUSCULAR VOLUME 85.5 fl (80.0-96.0); RED CELL DISTRIBUTION WIDTH 14.9 % (11.5-14.5); WHITE BLOOD COUNT 6.6 K/mm3 (4.0-10.0)
[2017-03-05 06:30] LABS: ALBUMIN 2.7 GM/DL (3.2-5.2); ALBUMIN/GLOBULIN RATIO 0.71 (1.00-1.93); BILIRUBIN,TOTAL 0.3 MG/DL (0.2-1.0); CALCIUM LEVEL 8.5 MG/DL (8.8-10.2); CREATININE FOR GFR 0.98 MG/DL (0.55-1.02); GLOMERULAR FILTRATION RATE 59.6 (>39); TOTAL PROTEIN 6.5 GM/DL (6.4-8.2)
[2017-03-05] MEDS: HumaLOG INSULIN (NovoLOG) PER UNIT SC SCH ×4 (07:30→21:00)
[2017-03-05 07:55] VITALS: BP_SYST 120; BP_SYST 145; BP_SYST 95; BP_DIAS 60; BP_DIAS 65
[2017-03-05] MEDS: cefTRIAXone SOD 1 GM in D5W MINI-BAG PLUS 50 ML IV SCH (09:08)
[2017-03-05 09:13] VITALS: BP 128/74
[2017-03-05] MEDS: VENLAFAXINE **XR** 75MG CAPSULE PO SCH (09:13)
[2017-03-05] MEDS: levETIRAcetam 250MG TABLET (KEPPRA) PO SCH ×2 (09:13→20:27)
[2017-03-05] MEDS: amLODIPine 5 MG TAB PO SCH (09:13)
[2017-03-05] MEDS: DOCUSATE SODIUM 100 MG CAP PO SCH ×2 (09:13→20:27)
[2017-03-05] MEDS: CYANOCOBALAMIN 500 MCG TAB PO SCH (09:13)
[2017-03-05] MEDS: POTASSIUM CHLORIDE 10 MEQ SR TABLET PO SCH (09:13)
[2017-03-05] MEDS: VITAMIN D 1,000 INTERNATIONAL UNITS TABLET PO SCH (09:13)
[2017-03-05] MEDS: rOPINIRole 1MG TAB PO SCH ×2 (09:14→20:27)
[2017-03-05] MEDS: ANASTROZOLE 1 MG TAB PO SCH (09:14)
[2017-03-05] MEDS: SENOKOT S TAB PO SCH ×2 (09:14→20:28)
[2017-03-05] MEDS: AMITRIPTYLINE 50 MG TAB PO SCH ×2 (09:14→20:27)
[2017-03-05] MEDS: ATORVASTATIN 20 MG TAB PO SCH (09:14)
[2017-03-05] MEDS: CLOPIDOGREL 75 MG TAB PO SCH (09:14)
[2017-03-05] MEDS: PANTOPRAZOLE 40MG TAB (PROTONIX) PO SCH ×2 (09:14→20:27)
--- NOTE | 2017-03-05 09:18 | IPNPDOC ---
Subjective Date Seen The patient was seen on 03/05/17. Subjective Chief Complaint/HPI The patient is a 71-year-old female admitted with a reason for visit of Syncope. General: Reports: Other Symptoms (dizziness), Denies: ROS Unobtainable, Chills, Night Sweats, Fatigue, Malaise, Normal Appetite Constitutional: Denies: Chills, Fever, Malaise, Night Sweats, Weakness, Fatigue , Weight Loss, Lethargy, Other Eyes: Denies: Pain, Vision change, Conjunctivae inflammation, Eyelid inflammation, Redness, Other ENT: Denies: Head Aches, Ear Pain, Dysphagia, Sinus Congestion, Post Nasal Drip , Sore Throat, Epistaxis, Other Symptoms Skin: Denies: Rash, Lesions, Jaundice, Bruising, Itching, Dry, Breakdown, Nail Changes, Other Pulmonary: Denies: Dyspnea, Cough, Pleuritic Chest Pain, Other Symptoms Cardiovascular: Denies: Chest Pain, Palpitations, Orthopnea, Paroxysmal Noc. Dyspnea, Edema, Lt Headedness, Other Symptoms Gastrointestinal: Denies: Nausea, Vomiting, Abdominal Pain, Diarrhea, Constipation, Melena, Hematochezia, Other Symptoms Genitourinary: Reports: Frequency, Denies: Dysuria, Incontinence, Hematuria, Retention, Other Symptoms Objective Physical Examination General Exam: Positive: Alert, Cooperative, No Acute Distress Eye Exam: Positive: PERRLA, Conjunctiva & lids normal, EOMI, Negative: Sclera icteric ENT Exam: Positive: Atraumatic Neck Exam: Positive: Supple Chest Exam: Positive: Clear to auscultation, Normal air movement Heart Exam: Positive: Rate Normal, Regular Rhythm Abdomen Exam: Positive: Normal bowel sounds, Soft, Negative: Tenderness Extremity Exam: Positive: Edema Psych Exam: Positive: Oriented x 3 Assessment /Plan Problems (1) UTI (urinary tract infection) Status: Acute Discussed With: Patient Problem Specific Plan: Monitor Clinically, Repeat Labs, Repeat Tests Problem Text: admits to polyuria today - she is off her diuretics possible etiology for her orthostasis started ceftriaxone (2) Syncope Status: Resolved Discussed With: Patient Problem Specific Plan: Consult Specialist, Monitor Clinically, Repeat Labs, Repeat Tests Problem Text: Unclear etiology - likely secondary to significant orthostasis no sig event on tele, no seizure activity on EEG MRI brain no acute pathology echo pending (3) CHF (congestive heart failure) Status: Chronic Discussed With: Patient Problem Specific Plan: Monitor Clinically Problem Text: echo pending - compensated (4) Seizure disorder Status: Chronic Discussed With: Patient Problem Specific Plan: Monitor Clinically, Repeat Labs Problem Text: Raiza. (5) CKD (chronic kidney disease) Status: Chronic Discussed With: Patient Problem Specific Plan: Repeat Labs Problem Text: nephrology c/s appreciated lasix/aldactone on hold +UTI renal sono shows medical renal disease creatinine improved today jeet/hemochromatosis w/u pending (6) Diabetes Status: Chronic Discussed With: Patient Problem Specific Plan: Repeat Labs Problem Text: ISS (7) Rheumatoid arthritis (8) CVA (cerebral vascular accident) Status: Chronic Discussed With: Patient Problem Specific Plan: Monitor Clinically Problem Text: As per patient. Continue asa,plavix,atorvastatin. (9) Incisional hernia Status: Chronic (10) HTN (hypertension) Status: Chronic Discussed With: Patient Problem Specific Plan: Monitor Clinically, Repeat Tests Problem Text: norvasc as per home meds patient was orthostatic lasix/aldactone on hold Plan/VTE VTE Prophylaxis Ordered?: Yes (mechanical) Plan Diet: Continue Current Activity: Continue Current Therapy: PT Medications: Start Antibiotics Diagnostics: Repeat Labs in AM Anticipated Discharge: Home With Services, Assisted Living VS, I&O, 24H, [facility] Vital Signs/I&O Vital Signs Date Time Temp Pulse Resp B/P (MAP) Pulse Ox O2 Delivery O2 Flow Rate FiO2 03/05/17 06:29 19 Room Air 03/05/17 06:00 98.9 64 128/74 (92) 95 03/02/17 13:29 2.0 I&O- Last 24 Hours up to 6 AM 03/05/17 06:00 Intake Total 2010 ml Output Total 725 ml Balance 1285 ml Laboratory Data 24H LABS Laboratory Tests 2 03/04/17 12:05: 03/04/17 12:17: Bedside Glucose (Misc Panel) 137H 03/04/17 16:50: Bedside Glucose (Misc Panel) 119H 03/04/17 20:05: Bedside Glucose (Misc Panel) 154H 03/05/17 05:48: Anion Gap 5L, Glomerular Filtration Rate 59.6, Blood Urea Nitrogen 19H, Creatinine 0.98, Sodium Level 142, Potassium Level 4.0, Chloride Level 104, Carbon Dioxide Level 33H, Calcium Level 8.5L, Aspartate Amino Transf (AST/SGOT) 18, Alanine Aminotransferase (ALT/SGPT) 22, Alkaline Phosphatase 83, Total Bilirubin 0.3, Total Protein 6.5, Albumin 2.7L, Albumin/Globulin Ratio 0.71L CBC/BMP Laboratory Tests 03/05/17 05:48 Red Blood Count 3.57 L, Mean Corpuscular Volume 85.5, Mean Corpuscular Hemoglobin 26.8 L, Mean Corpuscular Hemoglobin Concent 31.3 L, Red Cell Distribution Width 14.9 H, Calcium Level 8.5 L, Aspartate Amino Transf (AST/SGOT ) 18, Alanine Aminotransferase (ALT/SGPT) 22, Alkaline Phosphatase 83, Total Bilirubin 0.3, Total Protein 6.5, Albumin 2.7 L Microbiology Microbiology 03/03/17 Urine Culture - Final, Complete Escherichia Coli MARIAELENA DONIS MD March 05, 2017 09:18
[2017-03-05 14:00] VITALS: BP_SYST 148; BP_SYST 155; BP_SYST 171; BP_DIAS 69; BP_DIAS 71; BP_DIAS 72
--- NOTE | 2017-03-05 16:05 | IPN ---
DATE: 03/05/2017 SUBJECTIVE: Patient was seen and examined at the bedside this morning. Patient reports to me that she was having low pressures. As reported by hospitalist team, patient is having orthostatic hypotension. Patient is asymptomatic at this time. She was started on intravenous (IV) antibiotics as well because of Escherichia (E) coli urinary tract infection (UTI). Otherwise, patient's urine output is good and her renal function is improving. Her creatinine is down to 0.9 today. REVIEW OF SYSTEMS: Patient denies any fever or chills, rigors, headache, nausea or vomiting, chest pain, or shortness of breath. She denies any dizziness. The rest of the review of systems are negative. OBJECTIVE: VITAL SIGNS: Temperature 98.9 degrees Fahrenheit, blood pressure 128/74, pulse 64, respiratory rate 18, saturating 95% on room air. INTAKE AND OUTPUT: Urine output recorded is 875 mL yesterday. There is no urine output recorded so far today. Weight in the bed scale is 102 kg. PHYSICAL EXAMINATION: GENERAL: Patient is awake, alert, oriented times three, laying in bed, no apparent distress. HEAD AND NECK EXAMINATION: Extraocular muscles intact. Pupils equally, round and reactive to light. Mucous membranes are moist. Neck is supple. There is no jugular venous distention (JVD). CARDIOVASCULAR: S1, S2. Regular rate. No murmurs, rubs or gallops. RESPIRATORY: Clear to auscultation bilaterally. Bilateral equal air entry. No rales or rhonchi. ABDOMEN: Soft. Positive bowel sounds. Nontender. No ascites. No organomegaly. EXTREMITIES: No clubbing or cyanosis. Pulses are 2+. There is no edema of the bilateral lower extremities. CENTRAL NERVOUS SYSTEM: No focal neurological deficits. Power is 5/5 in all extremities. LABORATORY REVIEW: Complete blood count (CBC) showed WBC 6.6, hemoglobin 9.5, platelets 212. Basic metabolic panel (BMP) showed sodium 142, potassium 4, chloride 104, bicarbonate 33, BUN 19, creatinine 0.9, calcium 8.5. Albumin 2.7. A.M. cortisol level is 7.7. Serum renin aldosterone is pending. Plasma copper level is 121. Serial plasma level is 30.1 MICROBIOLOGY: Urine culture sent on 03/03/2017 is growing more than 100,000 Escherichia (E) coli. CURRENT MEDICATIONS: Patient's medications are all reviewed by me. She has been started on: - ceftriaxone 1 gram IV every 24 hours. There is no other change in the medication today as compared with yesterday. ASSESSMENT: A 71-year-old female with past medical history of chronic kidney disease stage III, baseline creatinine of around 1 to 1.2, history of congestive heart failure, diabetes, and other multiple comorbidities, admitted this time because of syncope. Nephrology service following the patient for management of acute kidney injury. PLAN: 1. Acute kidney injury. It was secondary to use of diuretics and volume depletion. Lasix and spironolactone have been held. Her creatinine has improved to 0.98 today. Continue to hold diuretics at this time. 2. Hypertension. Patient actually has orthostatic hypotension. Her blood pressure is acceptable at this time. I have stopped the amlodipine now. 3. Escherichia (E) coli urinary tract infection (UTI). Patient has been started on ceftriaxone 1 gram IV every 24 hours. Continue the antibiotics and finish a seven day course of antibiotics. 4. Orthostatic hypotension. It might have been secondary to a combination of urinary tract infection and use of amlodipine. Amlodipine has been held. Antibiotics have been started. I have also done the cortisol level, which is within the acceptable range. Plasma aldosterone concentration and plasma renin activity is pending. Continue the fall precaution at this time. 5. Anemia and chronic kidney disease. Iron levels are adequate. Hemoglobin is 9.5. Continue to monitor for now. 6. Metabolic alkalosis. Patient's serum bicarbonate level is 33 at this time. Continue to monitor for now. No need of acetazolamide at this time. The plan of care was discussed with the hospitalist team, Dr. Doug Mohamud.
--- NOTE | 2017-03-05 19:28 | ECHO ---
DATE OF PROCEDURE: 03/04/2017 AGE: 71 GENDER: female HEIGHT: 61 inches WEIGHT: 211 pounds BODY SURFACE AREA: 1.94 m2 PATIENT LOCATION: Inpatient, [address] [place] [address], room 4211 REFERRING PHYSICIAN: Dr. Medina Lowe INDICATION: Syncope. 2D MEASUREMENTS: RV: 3.3 cm LV: 4.6 cm Septum: 1.3 cm Posterior wall: 1.3 cm Aortic root: 3.0 cm LA: 1.1 cm LVEF: 75% DOPPLER MEASUREMENTS: AV: 2.3 m/s LVOT: 1.2 m/s LVOT diameter: 2.3 cm Mean AV gradient: 12 mmHg MV-E: 77, A: 84, EA ratio: 0.9 Early mitral deceleration time: 215 ms E prime: 7.6, A prime:11, E/E prime ratio: 10.2 PV: 1.1 m/s Pulmonary artery acceleration time: 70 ms RVSP: 48 mmHg IVC: 1.8 cm COMMENTS: Normal sinus rhythm without intraventricular conduction disturbance. Mildly dilated left atrium, but normal left ventricular size. Right heart chamber sizes appeared to be normal. Left ventricle (LV) wall thickness was mildly symmetrically increased. On real-time imaging from the parasternal and apical projections wall motion was symmetrical and hyperkinetic. Mild mitral annular calcification with slightly thickened mitral leaflet edges, but adequate leaflet excursion and no posterior systolic buckling. Three equal sized aortic cusps with mildly thickened cusp edges, but adequate cusp separation. Normal aortic root size. No apparent intracardiac mass or pericardial effusion. Color flow Doppler study taken from the parasternal and apical projections showed mild aortic, very mild mitral and mild tricuspid insufficiency. Guided continuous wave Doppler of her aortic valve and pulsed Doppler study of her LV outflow tract taken from the apical long axis and five chamber projection showed a slightly increased peak systolic velocity, but her LV outflow tract velocity was also increased though there was a measured mean gradient across the valve that was slightly above normal. Her dimensionless index was well within normal limits at 54 against any significant degree of LV outflow tract obstruction. Pulsed and continuous wave Doppler of her LV inflow tract taken to the apical four-chamber projection showed normal diastolic filling velocities against mitral stenosis. There was more prominent late diastolic/atrial dependent filling pattern. Diastolic dysfunction was further confirmed by a slightly prolonged early mitral deceleration time and tissue Doppler of her mitral annulus. However, her current estimated mean left atrial pressure was upper limits of normal at 12 mmHg. Pulsed and continuous wave Doppler of her pulmonary trunk showed a normal peak systolic velocity against LV outflow tract obstruction. Her pulmonary artery acceleration time was abbreviated in keeping with at least mildly increased pulmonary vascular resistance. Guided continuous wave Doppler of her tricuspid valve allowed our estimation of her right ventricular systolic pressure (moderately increased). Her inferior vena cava was of normal size with slightly reduced respiratory collapse suggestive of a central venous pressure of perhaps 10-15 mmHg. CONCLUSIONS: Mild concentric left ventricle hypertrophy with hyperkinetic wall motion. Mildly dilated left atrium with Doppler evidence of an impairment of LV diastolic function, but currently normal estimated mean left atrial pressure. Normal right heart chamber sizes with Doppler evidence of moderate pulmonary hypertension. Normal inferior vena cava (IVC) size with slightly reduced respiratory collapse suggestive of least a mildly elevated central venous pressure. Aortic valvular sclerosis without stenosis and only mild insufficiency. Moderate mitral annular calcification without inflow tract obstruction and only mild insufficiency. No clear sign of any significant structural or functional abnormality to account for the patient's syncopal spell.
[2017-03-05] MEDS: GABAPENTIN 400 MG CAP PO SCH (20:28)
[2017-03-05 21:00] VITALS: BP_SYST 132; BP_SYST 137; BP_SYST 153; BP_DIAS 60; BP_DIAS 71
[2017-03-05 22:00] VITALS: BP 141/73
[2017-03-06 06:00] VITALS: BP_SYST 150; BP_SYST 161; BP_SYST 162; BP_SYST 166; BP_DIAS 68; BP_DIAS 69; BP_DIAS 73
[2017-03-06 06:18] LABS: MEAN CORPUSCULAR HEMOGLOBIN 27.1 pg (27.0-33.0); MEAN CORPUSCULAR HGB CONC 31.4 g/dl (32.0-36.5); MEAN CORPUSCULAR VOLUME 86.1 fl (80.0-96.0); RED CELL DISTRIBUTION WIDTH 14.9 % (11.5-14.5)
[2017-03-06 06:52] LABS: ALBUMIN 2.7 GM/DL (3.2-5.2); ALBUMIN/GLOBULIN RATIO 0.79 (1.00-1.93); BILIRUBIN,TOTAL 0.2 MG/DL (0.2-1.0); CALCIUM LEVEL 8.4 MG/DL (8.8-10.2); CREATININE FOR GFR 1.06 MG/DL (0.55-1.02); GLOMERULAR FILTRATION RATE 54.4 (>39); POTASSIUM SERUM 4.1 MEQ/L (3.5-5.1); TOTAL PROTEIN 6.1 GM/DL (6.4-8.2)
[2017-03-06] MEDS: HumaLOG INSULIN (NovoLOG) PER UNIT SC SCH ×4 (07:30→20:53)
[2017-03-06] MEDS: cefTRIAXone SOD 1 GM in D5W MINI-BAG PLUS 50 ML IV SCH (08:36)
--- NOTE | 2017-03-06 09:34 | IPNPDOC ---
Subjective Date Seen The patient was seen on 03/06/17. Subjective Chief Complaint/HPI The patient is a 71-year-old female admitted with a reason for visit of Syncope. General: Denies: ROS Unobtainable, Chills, Night Sweats, Fatigue, Malaise, Normal Appetite, Other Symptoms Constitutional: Denies: Chills, Fever, Malaise, Night Sweats, Weakness, Fatigue , Weight Loss, Lethargy, Other Eyes: Denies: Pain, Vision change, Conjunctivae inflammation, Eyelid inflammation, Redness, Other ENT: Denies: Head Aches, Ear Pain, Dysphagia, Sinus Congestion, Post Nasal Drip , Sore Throat, Epistaxis, Other Symptoms Skin: Denies: Rash, Lesions, Jaundice, Bruising, Itching, Dry, Breakdown, Nail Changes, Other Pulmonary: Denies: Dyspnea, Cough, Pleuritic Chest Pain, Other Symptoms Cardiovascular: Reports: Edema, Denies: Chest Pain, Palpitations, Orthopnea, Paroxysmal Noc. Dyspnea, Lt Headedness, Other Symptoms Gastrointestinal: Denies: Nausea, Vomiting, Abdominal Pain, Diarrhea, Constipation, Melena, Hematochezia, Other Symptoms Genitourinary: Denies: Dysuria, Frequency, Incontinence, Hematuria, Retention, Other Symptoms Objective Physical Examination General Exam: Positive: Alert, Cooperative, No Acute Distress Eye Exam: Positive: PERRLA, Conjunctiva & lids normal, EOMI, Negative: Sclera icteric ENT Exam: Positive: Atraumatic Neck Exam: Positive: Supple Chest Exam: Positive: Clear to auscultation, Normal air movement Heart Exam: Positive: Rate Normal, Regular Rhythm Abdomen Exam: Positive: Normal bowel sounds, Soft, Negative: Tenderness Extremity Exam: Positive: Edema Psych Exam: Positive: Oriented x 3 Assessment /Plan Problems (1) UTI (urinary tract infection) Status: Acute Discussed With: Patient Problem Specific Plan: Monitor Clinically, Repeat Labs, Repeat Tests Problem Text: continue ceftriaxone (2) Syncope Status: Resolved Discussed With: Patient Problem Specific Plan: Consult Specialist, Monitor Clinically, Repeat Labs, Repeat Tests Problem Text: likely secondary to significant orthostasis which has resolved no sig event on tele, no seizure activity on EEG MRI brain no acute pathology echo with no obvious cardiac etiology for syncope (3) CHF (congestive heart failure) Status: Chronic Discussed With: Patient Problem Specific Plan: Monitor Clinically Problem Text: echo show LV diastolic dysfunction (4) Seizure disorder Status: Chronic Discussed With: Patient Problem Specific Plan: Monitor Clinically, Repeat Labs Problem Text: Raiza. (5) CKD (chronic kidney disease) Status: Chronic Discussed With: Patient Problem Specific Plan: Repeat Labs Problem Text: nephrology c/s appreciated lasix/aldactone on hold +UTI renal sono shows medical renal disease creatinine slightly worse today, with some developing edema - consider restarting lasix vs aldactone jeet/hemochromatosis w/u pending (6) Diabetes Status: Chronic Discussed With: Patient Problem Specific Plan: Repeat Labs Problem Text: ISS (7) Rheumatoid arthritis (8) CVA (cerebral vascular accident) Status: Chronic Discussed With: Patient Problem Specific Plan: Monitor Clinically Problem Text: As per patient. Continue asa,plavix,atorvastatin. (9) Incisional hernia Status: Chronic (10) HTN (hypertension) Status: Chronic Discussed With: Patient Problem Specific Plan: Monitor Clinically, Repeat Tests Problem Text: norvasc discontinued secondary to severe orthostasis lasix/aldactone on hold Plan/VTE VTE Prophylaxis Ordered?: Yes (mechanical) Plan Diet: Continue Current Activity: Continue Current Therapy: PT Medications: Start Antibiotics Diagnostics: Repeat Labs in AM Anticipated Discharge: Home, Home With Services Continue IV antibiotics. Orthostasis resolved. Appears to be developing some edema, increased weight. Discuss further with nephrology regarding resuming diuretics. Renal function slightly worse today, likely from volume overload. VS, I&O, 24H, Fishbone Vital Signs/I&O Vital Signs Date Time Temp Pulse Resp B/P (MAP) Pulse Ox O2 Delivery O2 Flow Rate FiO2 03/06/17 06:00 64 150/68 (95) 72 161/73 (102) 72 166/73 (104) 03/06/17 06:00 97.7 20 96 Room Air 03/02/17 13:29 2.0 I&O- Last 24 Hours up to 6 AM 03/06/17 06:00 Intake Total 1010 ml Output Total 0 ml Balance 1010 ml Laboratory Data 24H LABS Laboratory Tests 2 03/05/17 10:15: Cortisol AM Sample 7.7 03/05/17 11:25: Bedside Glucose (Misc Panel) 89 03/05/17 16:45: Bedside Glucose (Misc Panel) 119H 03/05/17 20:59: Bedside Glucose (Misc Panel) 143H 03/06/17 05:41: Anion Gap 6L, Glomerular Filtration Rate 54.4, Blood Urea Nitrogen 18, Creatinine 1.06H, Sodium Level 142, Potassium Level 4.1, Chloride Level 106, Carbon Dioxide Level 30, Calcium Level 8.4L, Aspartate Amino Transf (AST/SGOT) 17, Alanine Aminotransferase (ALT/SGPT) 21, Alkaline Phosphatase 82, Total Bilirubin 0.2, Total Protein 6.1L, Albumin 2.7L, Albumin/Globulin Ratio 0.79L CBC/BMP Laboratory Tests 03/06/17 05:41 Red Blood Count 3.48 L, Mean Corpuscular Volume 86.1, Mean Corpuscular Hemoglobin 27.1, Mean Corpuscular Hemoglobin Concent 31.4 L, Red Cell Distribution Width 14.9 H, Calcium Level 8.4 L, Aspartate Amino Transf (AST/SGOT ) 17, Alanine Aminotransferase (ALT/SGPT) 21, Alkaline Phosphatase 82, Total Bilirubin 0.2, Total Protein 6.1 L, Albumin 2.7 L Microbiology Microbiology 03/03/17 Urine Culture - Final, Complete Escherichia Coli MARIAELENA DONIS MD March 06, 2017 09:34
[2017-03-06 10:00] VITALS: BP 168/78
[2017-03-06] MEDS: levETIRAcetam 250MG TABLET (KEPPRA) PO SCH ×2 (12:00→20:52)
[2017-03-06] MEDS: ANASTROZOLE 1 MG TAB PO SCH (12:00)
[2017-03-06] MEDS: ATORVASTATIN 20 MG TAB PO SCH (12:01)
[2017-03-06] MEDS: CLOPIDOGREL 75 MG TAB PO SCH (12:01)
[2017-03-06] MEDS: VENLAFAXINE **XR** 75MG CAPSULE PO SCH (12:01)
[2017-03-06] MEDS: DOCUSATE SODIUM 100 MG CAP PO SCH ×2 (12:02→20:52)
[2017-03-06] MEDS: PANTOPRAZOLE 40MG TAB (PROTONIX) PO SCH ×2 (12:02→20:52)
[2017-03-06] MEDS: rOPINIRole 1MG TAB PO SCH ×2 (12:02→20:52)
[2017-03-06] MEDS: POTASSIUM CHLORIDE 10 MEQ SR TABLET PO SCH (12:03)
[2017-03-06] MEDS: AMITRIPTYLINE 50 MG TAB PO SCH ×2 (12:03→20:52)
[2017-03-06] MEDS: SENOKOT S TAB PO SCH ×2 (12:03→20:52)
[2017-03-06] MEDS: VITAMIN D 1,000 INTERNATIONAL UNITS TABLET PO SCH (12:03)
[2017-03-06] MEDS: CYANOCOBALAMIN 500 MCG TAB PO SCH (12:04)
[2017-03-06] MEDS: MIRALAX *UNIT DOSE* 17GM PACKET PO PRN (12:04)
[2017-03-06 14:00] VITALS: BP_SYST 141; BP_SYST 156; BP_SYST 177; BP_DIAS 65; BP_DIAS 67; BP_DIAS 77
[2017-03-06 14:25] VITALS: BP 173/72
[2017-03-06 19:53] VITALS: BP_SYST 155; BP_SYST 164; BP_SYST 181; BP_DIAS 71; BP_DIAS 73; BP_DIAS 86
[2017-03-06] MEDS: GABAPENTIN 400 MG CAP PO SCH (20:52)
[2017-03-06] MEDS: oxyCODONE 5MG TAB PO PRN (20:53)
[2017-03-07] MEDS: oxyCODONE 5MG TAB PO PRN (01:09)
[2017-03-07 06:00] VITALS: BP_SYST 135; BP_SYST 177; BP_SYST 184; BP_DIAS 77; BP_DIAS 78; BP_DIAS 79
[2017-03-07 06:25] LABS: MEAN CORPUSCULAR HEMOGLOBIN 27.1 pg (27.0-33.0); MEAN CORPUSCULAR HGB CONC 30.6 g/dl (32.0-36.5); MEAN CORPUSCULAR VOLUME 88.5 fl (80.0-96.0); RED CELL DISTRIBUTION WIDTH 15.1 % (11.5-14.5); WHITE BLOOD COUNT 7.6 K/mm3 (4.0-10.0)
[2017-03-07 06:57] LABS: ALBUMIN 2.9 GM/DL (3.2-5.2); ALBUMIN/GLOBULIN RATIO 0.69 (1.00-1.93); BILIRUBIN,TOTAL 0.2 MG/DL (0.2-1.0); CALCIUM LEVEL 8.8 MG/DL (8.8-10.2); CREATININE FOR GFR 0.98 MG/DL (0.55-1.02); GLOMERULAR FILTRATION RATE 59.6 (>39); POTASSIUM SERUM 4.2 MEQ/L (3.5-5.1); TOTAL PROTEIN 7.1 GM/DL (6.4-8.2)
[2017-03-07] MEDS: HumaLOG INSULIN (NovoLOG) PER UNIT SC SCH ×4 (07:21→21:00)
[2017-03-07 08:06] LABS: BILIRUBIN, TOTAL 0.3 mg/dL (0.0-1.2); FIBROSIS STAGE F1-F2 (.); GGT 39 IU/L (0-60); GLUCOSE, SERUM 109 mg/dL (65-99); HAPTOGLOBIN 283 mg/dL (34-200); HEIGHT 62 Inches (.); TRIGLYCERIDES 143 mg/dL (0-149); WEIGHT 211 LBS (.)
[2017-03-07] MEDS: AMITRIPTYLINE 50 MG TAB PO SCH (09:00)
--- NOTE | 2017-03-07 09:18 | IPNPDOC ---
Subjective Date Seen The patient was seen on 03/07/17. Subjective Chief Complaint/HPI The patient is a 71-year-old female admitted with a reason for visit of Syncope. General: Reports: Other Symptoms (dizziness with standing), Denies: ROS Unobtainable, Chills, Night Sweats, Fatigue, Malaise, Normal Appetite Constitutional: Denies: Chills, Fever, Malaise, Night Sweats, Weakness, Fatigue , Weight Loss, Lethargy, Other Eyes: Denies: Pain, Vision change, Conjunctivae inflammation, Eyelid inflammation, Redness, Other ENT: Denies: Head Aches, Ear Pain, Dysphagia, Sinus Congestion, Post Nasal Drip , Sore Throat, Epistaxis, Other Symptoms Skin: Denies: Rash, Lesions, Jaundice, Bruising, Itching, Dry, Breakdown, Nail Changes, Other Pulmonary: Denies: Dyspnea, Cough, Pleuritic Chest Pain, Other Symptoms Cardiovascular: Denies: Chest Pain, Palpitations, Orthopnea, Paroxysmal Noc. Dyspnea, Edema, Lt Headedness, Other Symptoms Gastrointestinal: Denies: Nausea, Vomiting, Abdominal Pain, Diarrhea, Constipation, Melena, Hematochezia, Other Symptoms Genitourinary: Denies: Dysuria, Frequency, Incontinence, Hematuria, Retention, Other Symptoms Objective Physical Examination General Exam: Positive: Alert, Cooperative, No Acute Distress Eye Exam: Positive: PERRLA, Conjunctiva & lids normal, EOMI, Negative: Sclera icteric ENT Exam: Positive: Atraumatic Neck Exam: Positive: Supple Chest Exam: Positive: Clear to auscultation, Normal air movement Heart Exam: Positive: Rate Normal, Regular Rhythm Abdomen Exam: Positive: Normal bowel sounds, Soft, Other (obese), Negative: Tenderness Psych Exam: Positive: Oriented x 3 Assessment /Plan Problems (1) UTI (urinary tract infection) Status: Acute Discussed With: Patient Problem Specific Plan: Monitor Clinically, Repeat Labs, Repeat Tests Problem Text: continue ceftriaxone (2) Syncope Status: Resolved Discussed With: Patient Problem Specific Plan: Consult Specialist, Monitor Clinically, Repeat Labs, Repeat Tests Problem Text: likely secondary to significant orthostasis - appears to be adverse effect from psych meds - discussed with psychiatry - d/c effexor, decrease ropinirole dosing, taper elavil no sig event on tele, no seizure activity on EEG MRI brain no acute pathology echo with no obvious cardiac etiology for syncope (3) CHF (congestive heart failure) Status: Chronic Discussed With: Patient Problem Specific Plan: Monitor Clinically Problem Text: echo show LV diastolic dysfunction (4) Seizure disorder Status: Chronic Discussed With: Patient Problem Specific Plan: Monitor Clinically, Repeat Labs Problem Text: Raiza. (5) CKD (chronic kidney disease) Status: Chronic Discussed With: Patient Problem Specific Plan: Repeat Labs Problem Text: nephrology c/s appreciated lasix/aldactone on hold +UTI renal sono shows medical renal disease creatinine slightly worse today, with some developing edema - consider restarting lasix vs aldactone jeet/hemochromatosis w/u pending (6) Diabetes Status: Chronic Discussed With: Patient Problem Specific Plan: Repeat Labs Problem Text: ISS (7) Rheumatoid arthritis (8) CVA (cerebral vascular accident) Status: Chronic Discussed With: Patient Problem Specific Plan: Monitor Clinically Problem Text: As per patient. Continue asa,plavix,atorvastatin. (9) Incisional hernia Status: Chronic (10) HTN (hypertension) Status: Chronic Discussed With: Patient Problem Specific Plan: Monitor Clinically, Repeat Tests Problem Text: norvasc discontinued secondary to severe orthostasis lasix/aldactone on hold Plan/VTE VTE Prophylaxis Ordered?: Yes (mechanical) Plan Diet: Continue Current Activity: Continue Current Therapy: PT Medications: Start Antibiotics Diagnostics: Repeat Labs in AM Anticipated Discharge: Home, Home With Services Significant orthostasis appears to be adverse effects from psych meds. Discussed with psychiatry, with medication changes implemented. VS, I&O, 24H, Fishbone Vital Signs/I&O Vital Signs Date Time Temp Pulse Resp B/P (MAP) Pulse Ox O2 Delivery O2 Flow Rate FiO2 03/07/17 06:00 72 184/77 (112) 72 177/79 (111) 72 135/78 (97) 03/07/17 01:39 15 03/06/17 14:25 97.3 96 Room Air 03/02/17 13:29 2.0 I&O- Last 24 Hours up to 6 AM 03/07/17 06:00 Intake Total 1410 ml Output Total 1650 ml Balance -240 ml Laboratory Data 24H LABS Laboratory Tests 2 03/06/17 12:22: Bedside Glucose (Misc Panel) 110 03/06/17 16:27: Bedside Glucose (Misc Panel) 94 03/06/17 20:35: Bedside Glucose (Misc Panel) 150H 03/07/17 05:40: Anion Gap 7L, Glomerular Filtration Rate 59.6, Blood Urea Nitrogen 16, Creatinine 0.98, Sodium Level 141, Potassium Level 4.2, Chloride Level 105, Carbon Dioxide Level 29, Calcium Level 8.8, Aspartate Amino Transf (AST/SGOT) 16 , Alanine Aminotransferase (ALT/SGPT) 21, Alkaline Phosphatase 83, Total Bilirubin 0.2, Total Protein 7.1, Albumin 2.9L, Albumin/Globulin Ratio 0.69L CBC/BMP Laboratory Tests 03/07/17 05:40 Red Blood Count 3.65 L, Mean Corpuscular Volume 88.5, Mean Corpuscular Hemoglobin 27.1, Mean Corpuscular Hemoglobin Concent 30.6 L, Red Cell Distribution Width 15.1 H, Calcium Level 8.8, Aspartate Amino Transf (AST/SGOT) 16, Alanine Aminotransferase (ALT/SGPT) 21, Alkaline Phosphatase 83, Total Bilirubin 0.2, Total Protein 7.1, Albumin 2.9 L Microbiology Microbiology 03/03/17 Urine Culture - Final, Complete Escherichia Coli MARIAELENA DONIS MD March 07, 2017 09:18
[2017-03-07] MEDS: SENOKOT S TAB PO SCH ×2 (09:36→21:00)
[2017-03-07] MEDS: ANASTROZOLE 1 MG TAB PO SCH (09:36)
[2017-03-07] MEDS: AMITRIPTYLINE 25 MG TAB PO SCH ×2 (09:36→21:07)
[2017-03-07] MEDS: DOCUSATE SODIUM 100 MG CAP PO SCH ×2 (09:36→21:07)
[2017-03-07] MEDS: VITAMIN D 1,000 INTERNATIONAL UNITS TABLET PO SCH (09:36)
[2017-03-07] MEDS: CYANOCOBALAMIN 500 MCG TAB PO SCH (09:36)
[2017-03-07] MEDS: CLOPIDOGREL 75 MG TAB PO SCH (09:37)
[2017-03-07] MEDS: ATORVASTATIN 20 MG TAB PO SCH (09:37)
[2017-03-07] MEDS: rOPINIRole 1MG TAB PO SCH ×2 (09:37→21:07)
[2017-03-07] MEDS: POTASSIUM CHLORIDE 10 MEQ SR TABLET PO SCH (09:37)
[2017-03-07] MEDS: PANTOPRAZOLE 40MG TAB (PROTONIX) PO SCH ×2 (09:37→21:08)
[2017-03-07] MEDS: levETIRAcetam 250MG TABLET (KEPPRA) PO SCH ×2 (09:37→21:07)
[2017-03-07] MEDS: MIRALAX *UNIT DOSE* 17GM PACKET PO PRN (09:37)
[2017-03-07] MEDS: cefTRIAXone SOD 1 GM in D5W MINI-BAG PLUS 50 ML IV SCH (09:38)
--- NOTE | 2017-03-07 09:56 | IPN ---
DATE: 03/06/2017 SUBJECTIVE: The patient was seen and examined at the bedside today in the morning. She feels much better. There is a slight bump in her creatinine, but she is hemodynamically stable. She does not have any active complaints at this time. REVIEW OF SYSTEMS: The patient denies any fever, chills, rigors, headache, nausea, vomiting, dizziness, chest pain, shortness of breath, pain in abdomen or constipation. The rest of the review of systems is negative. OBJECTIVE: VITAL SIGNS: Temperature is 97.3 degrees Fahrenheit, blood pressure is 173/72, pulse is 60, respiratory rate of 18, saturating 96% on room air. INTAKE/OUTPUT: Urine output is not recorded well. Weight on the bed scale is not recorded at this time. PHYSICAL EXAMINATION: GENERAL: The patient is awake, alert, oriented times three, laying in bed, in no apparent distress. HEAD AND NECK EXAM: Extraocular muscles intact. Pupils equally round and reactive to light. Mucous membranes are moist. Neck is supple. There is no jugular venous distention (JVD). CARDIOVASCULAR: S1, S2, regular rate. No murmur, rub or gallop. RESPIRATORY: Chest is clear to auscultation bilaterally. Bilateral equal air entry. No rales or rhonchi. ABDOMEN: Soft. Positive bowel sounds. Nontender. No ascites. No organomegaly. EXTREMITIES: No clubbing or cyanosis. Pulses are 2+. There is no edema of the bilateral lower extremities. CENTRAL NERVOUS SYSTEM: No focal neurological deficit. Power is 5/5 in all extremities. LAB REVIEW: CBC showed a WBC of 8, hemoglobin 9.4, platelets are 214. BMP showed sodium 142, potassium 4.1, chloride 106, bicarbonate is 30, BUN is 18, creatinine is 1.06, calcium is 8.4, albumin is 2.7. Plasma renin activity is pending. CURRENT MEDICATIONS: Patient's medications were all reviewed by me. Her amlodipine is on hold at this time because of orthostatic hypotension. ASSESSMENT: A 71-year-old female with a past medical history of chronic kidney disease, stage III, baseline creatinine of around 1 to 1.2, history of congestive heart failure, diabetes and other comorbidities, admitted at this time after syncope. Nephrology service following the patient for management of acute kidney injury. PLAN: 1. Acute kidney injury. It was secondary to volume depletion, orthostatic hypotension and use of diuretics. Lasix and spironolactone are on hold. Creatinine was improved to 0.9 yesterday. It is 1.0 today, which is close to her baseline. 2. Hypertension. The patient was having orthostatic hypotension. She was originally on amlodipine; amlodipine was stopped yesterday. Although the patient's blood pressures laying down are slightly high, but when she stands up, her blood pressure drops to 140s. I would not restart the antihypertensive regimen at this time. Serum morning cortisol level is okay. Plasma renin activity and aldosterone levels are still pending. 3. Escherichia (E) coli urinary tract infection (UTI). The patient is currently on ceftriaxone 1 gram IV every 24 hours. Continue antibiotics at this time. She can be switched to oral antibiotics when she is discharged home. 4. Anemia in chronic kidney disease. Iron levels are okay. Her hemoglobin is 9.4. Continue to monitor for now. 5. Metabolic alkalosis. The patient's bicarbonate level has improved to 30 today. Continue to monitor for now. DISCHARGE PLANNING: The patient's renal function has improved back to her baseline, but she continues to have some episodes of orthostatic hypotension. The patient should be able to be discharged home once she is hemodynamically stable. She can followup with Dr. Polanco as an outpatient. We can start her antihypertensives and diuretics slowly as an outpatient if needed. Plan of care was discussed with the hospitalist, Dr. Doug Mohamud.
[2017-03-07 14:00] VITALS: BP_SYST 116; BP_SYST 154; BP_SYST 162; BP_DIAS 70; BP_DIAS 76; BP_DIAS 92
--- NOTE | 2017-03-07 19:10 | IPN ---
DATE: 03/07/2017 SUBJECTIVE: The patient was seen and examined at the bedside today in the morning. She is sad that she cannot go home; however, last 24-hour events were noted. The patient is hypertensive but at the same time, she has orthostatic hypotension. She drops more than 40 mmHg when she stands up from lying-down position. The patient otherwise denies any active complaints at this time. Her renal function is stable. REVIEW OF SYSTEMS: The patient denies any fevers, chills, rigors, headaches, nausea, vomiting, chest pain, shortness of breath, pain abdomen, constipation, or diarrhea. She does report that she feels like she is gaining weight now, ever since her diuretics were held. The patient is not dizzy at this time, but the patient does report that she has fallen multiple times at home in the past. OBJECTIVE: VITAL SIGNS: Temperature is 97.3 degrees Fahrenheit, blood pressure is 162/92 supine and it drops to 116/70 when she stands up. Pulse is 85, respiratory rate of 18, saturating 96% on room air. INTAKE AND OUTPUT: Urine output recorded as 1.6 liters yesterday, 800 mL so far today since overnight. Weight in the bed scale is 103.4 kg. PHYSICAL EXAMINATION: GENERAL: The patient is awake, alert, and oriented times three lying in bed in no apparent distress. HEAD/NECK: Extraocular muscles intact. Pupils equal, round, and reactive to light. Mucous membranes are moist. Neck is supple. There is no jugular venous distention (JVD). CARDIOVASCULAR: S1, S2. Regular rate. No murmur, rub, or gallop. RESPIRATORY: Chest is clear to auscultation bilaterally. Bilateral equal air entry. No rales or rhonchi. ABDOMEN: Soft. Positive bowel sounds. Nontender. No ascites. No organomegaly. EXTREMITIES: No clubbing or cyanosis. Pulses are 2+. There is no edema of the bilateral lower extremities. CENTRAL NERVOUS SYSTEM (DENTAL TREATMENT COORDINATOR): No focal neurological deficit. Power is 5/5 in all extremities. LABORATORY DATA: CBC showed WBC of 7.6, hemoglobin 9.9, platelets are 232. BMP showed sodium 141, potassium 4.2, chloride 105, bicarbonate 29, BUN 16, creatinine 0.9, calcium 8.8. CURRENT MEDICATIONS: The patient's medications were all reviewed by me, and because of the possibility of antipsychotic medications causing orthostatic hypotension, her amitriptyline dose has been decreased to 25 mg by mouth twice a day. Her ropinirole dose has been decreased to 2 mg by mouth twice a day, and Effexor has been discontinued. ASSESSMENT: 71-year-old female with past medical history of chronic kidney disease stage III, base line of around one to 1.2, history of congestive heart failure, diabetes, and history of anxiety and depression, admitted this time after syncope. Neurological and cardiac workup has been negative so far. Nephrology service following the patient for management of acute kidney injury. PLAN: 1. Acute kidney injury. It was secondary to volume depletion, orthostatic hypotension and use of diuretics. Lasix and spironolactone are on hold. Creatinine has improved back to baseline. 2. Hypertension. Even though the patient is hypertensive at rest, when she stands up, her systolic blood pressure drops by more than 40 mmHg. I would not start the antihypertensive at this time. 3. Orthostatic hypotension. The patient came in with syncope. I think the most likely cause of syncope was orthostatic hypotension as well. The patient give multiple history of falls in the past. Neurological workup and cardiac workup have been negative so far. The patient is on psychiatric medications for a long time. I think the most likely culprit for orthostatic hypotension is antipsychotic medications. I have discussed this with the primary hospitalist, Dr. Doug Mohamud. He is tapering down the antipsychotic medications and if needed, we might get help from psychiatry service as well. 4. Escherichia (E.) coli urinary tract infection (UTI). The patient is getting IV antibiotics. She is asymptomatic at this time. 5. Anemia in chronic kidney disease. The patient's hemoglobin is 9.9 at this time, which is acceptable. No need of Aranesp administration at this time. 6. Metabolic alkalosis. Bicarbonate has improved to 29 now. The plan of care was discussed with the patient and with the hospitalist.
[2017-03-07 21:00] VITALS: BP_SYST 148; BP_SYST 149; BP_SYST 164; BP_DIAS 70; BP_DIAS 77; BP_DIAS 80
[2017-03-07] MEDS: GABAPENTIN 400 MG CAP PO SCH (21:08)
[2017-03-07 22:00] VITALS: BP 149/70
[2017-03-08 05:54] LABS: MEAN CORPUSCULAR HEMOGLOBIN 27.6 pg (27.0-33.0); MEAN CORPUSCULAR HGB CONC 32.2 g/dl (32.0-36.5); MEAN CORPUSCULAR VOLUME 85.7 fl (80.0-96.0)
[2017-03-08 06:00] VITALS: BP_SYST 125; BP_SYST 148; BP_SYST 157; BP_SYST 189; BP_DIAS 70; BP_DIAS 71; BP_DIAS 77; BP_DIAS 80
[2017-03-08 06:03] LABS: ALBUMIN 2.8 GM/DL (3.2-5.2); ALBUMIN/GLOBULIN RATIO 0.67 (1.00-1.93); BILIRUBIN,TOTAL 0.2 MG/DL (0.2-1.0); CALCIUM LEVEL 8.9 MG/DL (8.8-10.2); CREATININE FOR GFR 0.98 MG/DL (0.55-1.02); GLOMERULAR FILTRATION RATE 59.6 (>39); POTASSIUM SERUM 4.2 MEQ/L (3.5-5.1)
[2017-03-08] MEDS: HumaLOG INSULIN (NovoLOG) PER UNIT SC SCH ×4 (07:30→20:55)
[2017-03-08] MEDS: ANASTROZOLE 1 MG TAB PO SCH (08:52)
[2017-03-08] MEDS: levETIRAcetam 250MG TABLET (KEPPRA) PO SCH ×2 (08:52→20:31)
[2017-03-08] MEDS: rOPINIRole 1MG TAB PO SCH ×2 (08:52→20:31)
[2017-03-08] MEDS: ATORVASTATIN 20 MG TAB PO SCH (08:52)
[2017-03-08] MEDS: AMITRIPTYLINE 10 MG TAB PO SCH ×2 (08:53→20:31)
[2017-03-08] MEDS: CYANOCOBALAMIN 500 MCG TAB PO SCH (08:53)
[2017-03-08] MEDS: DOCUSATE SODIUM 100 MG CAP PO SCH ×2 (08:53→20:31)
[2017-03-08] MEDS: CLOPIDOGREL 75 MG TAB PO SCH (08:53)
[2017-03-08] MEDS: POTASSIUM CHLORIDE 10 MEQ SR TABLET PO SCH (08:53)
[2017-03-08] MEDS: PANTOPRAZOLE 40MG TAB (PROTONIX) PO SCH ×2 (08:53→20:31)
[2017-03-08] MEDS: VITAMIN D 1,000 INTERNATIONAL UNITS TABLET PO SCH (08:53)
[2017-03-08] MEDS: SENOKOT S TAB PO SCH ×2 (08:53→20:31)
[2017-03-08] MEDS: cefTRIAXone SOD 1 GM in D5W MINI-BAG PLUS 50 ML IV SCH (08:54)
[2017-03-08] MEDS: MIRALAX *UNIT DOSE* 17GM PACKET PO PRN (08:59)
--- NOTE | 2017-03-08 10:37 | IPNPDOC ---
Subjective Date Seen The patient was seen on 03/08/17. Subjective Chief Complaint/HPI The patient is a 71-year-old female admitted with a reason for visit of Syncope. General: Denies: ROS Unobtainable, Chills, Night Sweats, Fatigue, Malaise, Normal Appetite, Other Symptoms Constitutional: Denies: Chills, Fever, Malaise, Night Sweats, Weakness, Fatigue , Weight Loss, Lethargy, Other Eyes: Denies: Pain, Vision change, Conjunctivae inflammation, Eyelid inflammation, Redness, Other ENT: Denies: Head Aches, Ear Pain, Dysphagia, Sinus Congestion, Post Nasal Drip , Sore Throat, Epistaxis, Other Symptoms Skin: Denies: Rash, Lesions, Jaundice, Bruising, Itching, Dry, Breakdown, Nail Changes, Other Pulmonary: Denies: Dyspnea, Cough, Pleuritic Chest Pain, Other Symptoms Cardiovascular: Denies: Chest Pain, Palpitations, Orthopnea, Paroxysmal Noc. Dyspnea, Edema, Lt Headedness, Other Symptoms Gastrointestinal: Denies: Nausea, Vomiting, Abdominal Pain, Diarrhea, Constipation, Melena, Hematochezia, Other Symptoms Genitourinary: Denies: Dysuria, Frequency, Incontinence, Hematuria, Retention, Other Symptoms Objective Physical Examination General Exam: Positive: Alert, Cooperative, No Acute Distress Eye Exam: Positive: PERRLA, Conjunctiva & lids normal, EOMI, Negative: Sclera icteric ENT Exam: Positive: Atraumatic Neck Exam: Positive: Supple Chest Exam: Positive: Clear to auscultation, Normal air movement Heart Exam: Positive: Rate Normal, Regular Rhythm Abdomen Exam: Positive: Normal bowel sounds, Soft, Other (obese), Negative: Tenderness Psych Exam: Positive: Oriented x 3 Assessment /Plan Problems (1) Orthostatic hypotension Status: Acute Response to Treatment: Progressing Discussed With: Patient Problem Specific Plan: Monitor Clinically Problem Text: as per plan for syncope (2) Syncope Status: Acute Discussed With: Patient Problem Specific Plan: Consult Specialist, Monitor Clinically, Repeat Labs, Repeat Tests Problem Text: likely secondary to significant orthostasis - appears to be adverse effect from psych meds - discussed with psychiatry - d/c effexor, decrease ropinirole dosing, taper elavil no sig event while on tele, no seizure activity on EEG MRI brain no acute pathology echo with no obvious cardiac etiology for syncope (3) UTI (urinary tract infection) Status: Acute Discussed With: Patient Problem Specific Plan: Monitor Clinically, Repeat Labs, Repeat Tests Problem Text: Day #4 ceftriaxone - could likely discontinue tomorrow to complete 5 days. Currently asymptomatic. (4) CHF (congestive heart failure) Status: Chronic Discussed With: Patient Problem Specific Plan: Monitor Clinically Problem Text: echo show LV diastolic dysfunction (5) Seizure disorder Status: Chronic Discussed With: Patient Problem Specific Plan: Monitor Clinically, Repeat Labs Problem Text: Raiza. (6) CKD (chronic kidney disease) Status: Chronic Discussed With: Patient Problem Specific Plan: Repeat Labs Problem Text: nephrology c/s appreciated lasix/aldactone on hold +UTI renal sono shows medical renal disease renal function stable full jeet/hemochromatosis w/u pending (7) Diabetes Status: Chronic Discussed With: Patient Problem Specific Plan: Repeat Labs Problem Text: ISS (8) Rheumatoid arthritis (9) CVA (cerebral vascular accident) Status: Chronic Discussed With: Patient Problem Specific Plan: Monitor Clinically Problem Text: As per patient. Continue asa,plavix,atorvastatin. (10) Incisional hernia Status: Chronic (11) HTN (hypertension) Status: Chronic Discussed With: Patient Problem Specific Plan: Monitor Clinically, Repeat Tests Problem Text: norvasc discontinued secondary to severe orthostasis lasix/aldactone on hold Plan/VTE VTE Prophylaxis Ordered?: Yes (mechanical) Plan Diet: Continue Current Activity: Continue Current Therapy: PT Medications: Start Antibiotics Diagnostics: Repeat Labs in AM Anticipated Discharge: Home, Home With Services Day 4 ceftriaxone for UTI Still significant orthostasis, continue tapering psych meds as per recommendations. Continue orthostatic vital signs. VS, I&O, 24H, Fishbone Vital Signs/I&O Vital Signs Date Time Temp Pulse Resp B/P (MAP) Pulse Ox O2 Delivery O2 Flow Rate FiO2 03/08/17 06:00 62 148/70 (96) 68 189/80 (116) 77 157/77 (103) 03/08/17 06:00 97.5 18 93 Room Air 03/02/17 13:29 2.0 I&O- Last 24 Hours up to 6 AM 03/08/17 05:59 Intake Total 1030 ml Output Total 3050 ml Balance -2020 ml Laboratory Data 24H LABS Laboratory Tests 2 03/07/17 11:29: Bedside Glucose (Misc Panel) 97 03/07/17 16:36: Bedside Glucose (Misc Panel) 110 03/07/17 20:26: Bedside Glucose (Misc Panel) 129H 03/08/17 05:26: Anion Gap 7L, Glomerular Filtration Rate 59.6, Blood Urea Nitrogen 14, Creatinine 0.98, Sodium Level 141, Potassium Level 4.2, Chloride Level 105, Carbon Dioxide Level 29, Calcium Level 8.9, Aspartate Amino Transf (AST/SGOT) 22 , Alanine Aminotransferase (ALT/SGPT) 19, Alkaline Phosphatase 83, Total Bilirubin 0.2, Total Protein 7.0, Albumin 2.8L, Albumin/Globulin Ratio 0.67L CBC/BMP Laboratory Tests 03/08/17 05:26 Red Blood Count 3.62 L, Mean Corpuscular Volume 85.7, Mean Corpuscular Hemoglobin 27.6, Mean Corpuscular Hemoglobin Concent 32.2, Red Cell Distribution Width 15.0 H, Calcium Level 8.9, Aspartate Amino Transf (AST/SGOT) 22, Alanine Aminotransferase (ALT/SGPT) 19, Alkaline Phosphatase 83, Total Bilirubin 0.2, Total Protein 7.0, Albumin 2.8 L Microbiology Microbiology 03/03/17 Urine Culture - Final, Complete Escherichia Coli MARIAELENA DONIS MD March 08, 2017 10:37
[2017-03-08 14:00] VITALS: BP_SYST 130; BP_SYST 150; BP_SYST 168; BP_DIAS 70; BP_DIAS 72
[2017-03-08] MEDS: GABAPENTIN 400 MG CAP PO SCH (20:31)
[2017-03-08 21:00] VITALS: BP_SYST 154; BP_SYST 164; BP_SYST 168; BP_DIAS 71; BP_DIAS 72; BP_DIAS 74
[2017-03-08 22:00] VITALS: BP 184/86
[2017-03-09] MEDS: oxyCODONE 5MG TAB PO PRN ×3 (00:23→09:07)
[2017-03-09 05:39] VITALS: BP_SYST 156; BP_SYST 158; BP_SYST 160; BP_DIAS 70; BP_DIAS 72; BP_DIAS 76
--- NOTE | 2017-03-09 05:43 | IPN ---
DATE: 03/08/2017 Mrs. Hickey is this morning on her bedside. She is eating breakfast at the time of my visit. She reports feeling better. However, she is concerned about fluctuations in her weight. She denies any nausea, vomiting, dyspnea or chest pain. Has history of significant orthostatic hypotension with frequent falls at home. Her medications have been adjusted and some of her psych medications have been stopped. PHYSICAL EXAMINATION: Temperature 97.5 degrees Fahrenheit, heart rate 62 per minute supine and 77 per minutes standing. Blood pressure has been fluctuating between 180s over 80s to 130s over 70s between standing and supine position. Orthostasis persists. However fluctuations have decreased with certain extent. Oxygen saturation is 93% on room air. Intake and output records from yesterday showed total intake 670 and output 2150 mL. Today's labs show WBC count 6.0, hemoglobin 10.0, hematocrit 31. Sodium 141 and potassium 4.2. BUN 14 and creatinine 0.98. Her head is atraumatic. Neck is supple and JVD is difficult to be assessed. Heart: Sounds are regular and lungs clear to auscultation. Abdomen: Soft, obese and nontender. Extremities: Have no cyanosis or clubbing. Skin has no rash or ulcers. Neurologically she is awake, alert and oriented times three. PROBLEMS: 1. Acute renal failure. Kidney function has improved and acute renal failure has completely resolved. Electrolytes are within normal range. 2. Severe orthostatic hypotension. Most likely at least partly related to medications. Some of her medications have already been stopped. Her supine blood pressure is quite high, so we cannot consider giving her midodrine or stopping all her antihypertensives all together. 3. Urinary tract infection (UTI). The patient remains on ceftriaxone and seems to be asymptomatic at present. 4. Anemia. Her anemia has been stable and does not need any intervention at this time.
[2017-03-09 06:00] VITALS: BP 178/80
[2017-03-09] MEDS: HumaLOG INSULIN (NovoLOG) PER UNIT SC SCH ×2 (07:59→11:51)
[2017-03-09] MEDS: AMITRIPTYLINE 10 MG TAB PO SCH (09:05)
[2017-03-09] MEDS: DOCUSATE SODIUM 100 MG CAP PO SCH (09:05)
[2017-03-09] MEDS: ATORVASTATIN 20 MG TAB PO SCH (09:05)
[2017-03-09] MEDS: CLOPIDOGREL 75 MG TAB PO SCH (09:05)
[2017-03-09] MEDS: POTASSIUM CHLORIDE 10 MEQ SR TABLET PO SCH (09:06)
[2017-03-09] MEDS: rOPINIRole 1MG TAB PO SCH (09:06)
[2017-03-09] MEDS: levETIRAcetam 250MG TABLET (KEPPRA) PO SCH (09:06)
[2017-03-09] MEDS: SENOKOT S TAB PO SCH (09:06)
[2017-03-09] MEDS: MIRALAX *UNIT DOSE* 17GM PACKET PO PRN (09:06)
[2017-03-09] MEDS: CYANOCOBALAMIN 500 MCG TAB PO SCH (09:06)
[2017-03-09] MEDS: ANASTROZOLE 1 MG TAB PO SCH (09:06)
[2017-03-09] MEDS: VITAMIN D 1,000 INTERNATIONAL UNITS TABLET PO SCH (09:06)
[2017-03-09] MEDS: PANTOPRAZOLE 40MG TAB (PROTONIX) PO SCH (09:06)
[2017-03-09] MEDS: cefTRIAXone SOD 1 GM in D5W MINI-BAG PLUS 50 ML IV SCH (09:07)
[2017-03-09] MEDS ORDERED: AMIT10TA PO (13:15)
[2017-03-09] MEDS ORDERED: REQU1TAB16 PO (13:15)
[2017-03-09 14:00] VITALS: BP 117/81
--- NOTE | 2017-03-10 12:37 | DSES ---
DATE OF ADMISSION: 03/01/2017 DATE OF DISCHARGE: 03/09/2017 SPECIALISTS DURING HER STAY: Include: Dr. Felipe Polanco DISCHARGE DIAGNOSES: Orthostatic hypotension. Syncope. Urinary tract infection. Congestive heart failure. Seizure disorder. Chronic kidney disease. Diabetes. Rheumatoid arthritis. History of cerebrovascular accident (CVA). History of incisional hernia. Hypertension. Following is a summary of her hospitalization: This is a 71-year-old who presented with a syncopal event as the patient was traveling between [place] and [place]. She has a known seizure disorder and thought to have "liver cirrhosis." She was admitted to the hospitalist service. Was noted to have orthostatic hypotension. Diuretics were on hold. She had some evidence of acute renal failure at the time of presentation and was seen in consultation by nephrology. She improved slowly during the course of her stay. Was also thought to have predisposition for syncope based on her psychiatric medications. Her Effexor was discontinued entirely. Her Requip was decreased, and he Elavil was tapered. She was no longer orthostatic, and she did pass physical therapy. On day of discharge, she is feeling well. She has no complaints of pain, chest pain, shortness of breath. Is looking forward to getting out of the hospital. Temperature is 97, pulse 99, respiratory rate is 17. She is not orthostatic. Blood pressure at the time of discharge 117/81. INSTRUCTIONS: Include the following: Followup with Dr. Rosa Lipscomb 03/16/2017, Dr. Dutta 03/22/2017 at 8 a.m. She is to continue amitriptyline 20 mg by mouth twice daily. Continue Requip 2 mg by mouth twice daily, albuterol every 4 hours as needed, Norvasc 5 mg by mouth daily, atorvastatin 80 mg by mouth daily, bisoprolol 2.5 mg by mouth daily, Bumex 1 mg by mouth daily at bedtime, Plavix 75 mg by mouth daily, vitamin B12 supplement, Neurontin 400 mg by mouth daily at bedtime, Keppra 750 mg by mouth twice daily, magnesium chloride 70 mg by mouth twice daily, metformin two tablets by mouth daily, metoprolol succinate 25 mg by mouth daily, sublingual nitroglycerin, oxycodone, Protonix 40 mg by mouth twice daily, potassium chloride 10 mEq by mouth daily, spironolactone 25 mg by mouth daily, vitamin D supplement as ordered.
[2017-03-11 00:08] LABS: ALDOSTERONE 5.2 ng/dL (0.0-30.0)
== END 2017-03-09 15:38 | disposition home health service (06) | DRG 312 ==
LOC: M ED 19:41 → M ED INP 22:30 → M PCU 03-02 22:15 → M MSPAV 03-04 12:51
PROVIDERS: ADMIT Internal Medicine; ATTEND Internal Medicine
DX: I95.2 Hypotension due to drugs (principal); N17.9 Acute kidney failure, unspecified; I50.32 Chronic diastolic (congestive) heart failure; E87.3 Alkalosis; N39.0 Urinary tract infection, site not specified; E87.2 Acidosis; N18.3 Chronic kidney disease, stage 3 (moderate); R55 Syncope and collapse; E11.9 Type 2 diabetes mellitus without complications; M06.9 Rheumatoid arthritis, unspecified; G40.909 Epilepsy, unspecified, not intractable, without status epilepticus; Z86.73 Personal history of transient ischemic attack (TIA), and cerebral infarction without residual deficits; Z79.899 Other long term (current) drug therapy; Z88.8 Allergy status to other drugs, medicaments and biological substances; G25.81 Restless legs syndrome; K74.69 Other cirrhosis of liver; Z91.040 Latex allergy status; Z91.041 Radiographic dye allergy status; Z91.013 Allergy to seafood; D63.1 Anemia in chronic kidney disease; B96.29 Other Escherichia coli [E. coli] as the cause of diseases classified elsewhere

== ENCOUNTER 2017-04-10 20:24 | Inpatient (IN) | payer MEDICARE, OTHER ==
[~2017-04-10] VITALS: Ht 152.4 cm; Wt 97.3 kg
[~2017-04-10 20:24] MED LIST changes: +AMIT10TA PO; +AMLO5TAB2 PO; +ANAS1TAB PO; +EFFE75CA75 PO; +GABA-283 PO; +LASI40TA PO; +LEVE750T5 PO; +MAG-TAB PO; +METO25TA74 PO; +NITR0.4S14 SL; +OXYC10TA12 PO; +OXYC20TA2 PO; +PANT40TA2 PO; +PLAV75TA38 PO; +POTA10TA16 PO; +REQU1TAB16 PO; +REQU4TAB3 PO; +VITA100037 PO; +VITA500T3 PO
[2017-04-10] MEDS ORDERED: ALBU17IN INH (20:41)
[2017-04-10] MEDS ORDERED: PERC7.5T3 PO (20:41)
[2017-04-10] MEDS ORDERED: FIOR1CAP PO (20:41)
[2017-04-10] MEDS ORDERED: ASCO25TA PO (20:41)
[2017-04-10] MEDS ORDERED: ASPI81TA85 PO (20:41)
[2017-04-10] MEDS ORDERED: D 1010004 PO (20:41)
[2017-04-10] MEDS ORDERED: ANAS1TAB PO (20:41)
[2017-04-10] MEDS ORDERED: MECL-86 PO (20:41)
[2017-04-10 21:26] LABS: MEAN CORPUSCULAR HEMOGLOBIN 26.8 pg (27.0-33.0); MEAN CORPUSCULAR HGB CONC 31.7 g/dl (32.0-36.5); MEAN CORPUSCULAR VOLUME 84.6 fl (80.0-96.0); RED CELL DISTRIBUTION WIDTH 14.6 % (11.5-14.5); WHITE BLOOD COUNT 9.4 K/mm3 (4.0-10.0)
[2017-04-10 21:39] LABS: ALBUMIN 3.3 GM/DL (3.2-5.2); ALBUMIN/GLOBULIN RATIO 0.83 (1.00-1.93); ALKALINE PHOSPHATASE 90 U/L (45-117); ALT/SGPT 16 U/L (12-78); ANION GAP 8 MEQ/L (8-16); AST/SGOT 14 U/L (15-37); BILIRUBIN,TOTAL 0.2 MG/DL (0.2-1.0); BLOOD UREA NITROGEN 36 MG/DL (7-18); CALCIUM LEVEL 8.5 MG/DL (8.8-10.2); CARBON DIOXIDE LEVEL 27 MEQ/L (21-32); CHLORIDE LEVEL 106 MEQ/L (98-107); CREATININE FOR GFR 1.32 MG/DL (0.55-1.02); GLOMERULAR FILTRATION RATE 42.2 (>39); GLUCOSE, FASTING 120 MG/DL (83-110); POTASSIUM SERUM 3.4 MEQ/L (3.5-5.1); SODIUM LEVEL 141 MEQ/L (136-145); TOTAL PROTEIN 7.3 GM/DL (6.4-8.2)
[2017-04-10] MEDS ORDERED: POTASSIUM CHLORIDE 10 MEQ SR TABLET PO ONE (22:00)
[2017-04-10] MEDS ORDERED: oxyCODONE 5MG TAB PO ONE (22:15)
[2017-04-10] MEDS ORDERED: ISOVUE-370 76% 100ML VIAL (Q9967) As Ordered ONE (22:53)
[2017-04-10] MEDS: NS 1,000 ML IV SCH (23:17)
--- NOTE | 2017-04-10 23:30 | REPUSA ---
CT of the chest with contrast Clinical history: chest pain, shortness of breath. Technique: Multiple axial CT images were obtained from the thoracic inlet through the upper abdomen a fter a bolus administration of nonionic intravenous contrast. Coronal and sagittal reconstructions we re also obtained. No comparison is available. The pulmonary arteries are well-opacified with contrast, with no intraluminal filling defects to sugg est embolism. The thoracic aorta is unremarkable. Thyroid gland is within normal limits. There is no thoracic lymphadenopathy. There are no pericardial or pleural effusions. The lungs are clear. Limited imaging of the upper abdomen is unremarkable. There are no suspicious osseous lesions. Impression: No evidence of pulmonary embolism. No acute intrapulmonary disease.
[2017-04-11] MEDS ORDERED: ASCO10003 PO (00:27)
[2017-04-11] MEDS ORDERED: VITA10002 PO (00:27)
[2017-04-11] MEDS ORDERED: ROPI4TAB PO (00:29)
[2017-04-11] MEDS ORDERED: OXYC10TA12 PO (00:29)
[2017-04-11] MEDS ORDERED: VENL75CA47 PO (00:29)
[2017-04-11] MEDS ORDERED: BISO5TAB5 PO (00:29)
--- NOTE | 2017-04-11 00:40 | REPUSA ---
CLINICAL HISTORY: Edema. COMMENTS: Real time sonography with duplex doppler of the extremities bilaterally was performed with attention to the major deep venous structures. Evaluation reveals the common femoral, superficial femoral and popliteal veins bilaterally to be comp letely compressible without intraluminal thrombus. There is normal spontaneous phasic flow and augmen tation in all deep veins. The greater saphenous/common femoral vein junctions are patent bilaterally. IMPRESSION: No evidence of DVT in the lower extremities bilaterally. Thank you for your kind referral of this patient.
--- NOTE | 2017-04-11 01:44 | HPEPDOC ---
General Date of Admission Primary Care Physician: Rosa Lipscomb MD Attending Physician: CORBY DODGE MD Chief Complaint The patient is a 71-year-old female admitted with a reason for visit of Chest Pain. History of Present Illness 71-year-old female, history of CHF, TIA, rheumatoid arthritis, cirrhosis of liver, presented with chest pain. Chest pain was sudden on onset, gradually worsening substernal, nonradiating, not associated with tingling, numbness, diaphoresis. It was associated with shortness of breath and dyspnea on exertion. There was no cough or fever. She had history of diverticulosis in the past which led to colon resection and was complicated with lung collapse during hospitalization and patient was intubated for some time. Recently she had similar symptoms and she underwent cardiac catheterization isn't in December 2016, which showed coronary stenosis of about 55%, no stent was placed. Home Medications Scheduled Amlodipine Besylate (Amlodipine Besylate) 5 Mg Tab, 5 MG PO DAILY, (Reported) Anastrozole (Anastrozole) 1 Mg Tab, 1 MG PO DAILY, (Reported) Ascorbic Acid (Ascorbic Acid) 1,000 Mg Tab, 1,000 MG PO DAILY, (Reported) Aspirin (Aspir-81) 81 Mg Tab, 81 MG PO DAILY, (Reported) Atorvastatin Calcium (Lipitor) 80 Mg Tab, 80 MG PO DAILY, (Reported) Bisoprolol Fumarate (Bisoprolol Fumarate) 5 Mg Tab, 2.5 MG PO DAILY, (Reported) Bumetanide (Bumetanide) 1 Mg Tab, 1 MG PO DAILY, (Reported) Cholecalciferol (D 1000) 1,000 Unit Cap, 1,000 UNIT PO DAILY, (Reported) Clopidogrel Bisulfate (Plavix) 75 Mg Tab, 75 MG PO DAILY, (Reported) Cyanocobalamin (Vitamin B-12) 1,000 Mcg Tab, 1,000 MCG PO DAILY, (Reported) Furosemide (Lasix) 40 Mg Tab, 40 MG PO DAILY, (Reported) Gabapentin (Gabapentin) 400 Mg Cap, 400 MG PO QHS, (Reported) Levetiracetam (Levetiracetam) 750 Mg Tab, 750 MG PO BID, (Reported) Magnesium Chloride (Magdelay) 70 Mg Tab, 64 MG PO DAILY, (Reported) Metformin Hydrochloride (Metformin HCl ER) 500 Mg Tab, 1,000 MG PO DAILY, ( Reported) Metoprolol Succinate (Metoprolol Succinate ER) 25 Mg Tab, 25 MG PO DAILY, ( Reported) Oxycodone HCl (Oxycodone HCl) 10 Mg Tab, 10 MG PO QID, (Reported) Pantoprazole Sodium (Pantoprazole Sodium) 40 Mg Tab, 40 MG PO BID, (Reported) Potassium Chloride (Potassium Chloride ER) 10 Meq Tab, 10 MEQ PO DAILY, ( Reported) Ropinirole Hydrochloride (Ropinirole HCl) 4 Mg Tab, 4 MG PO BID, (Reported) Spironolactone (Spironolactone) 25 Mg Tab, 25 MG PO DAILY, (Reported) Venlafaxine HCl (Venlafaxine HCl ER) 75 Mg Capcr, 75 MG PO DAILY, (Reported) Vitamin D (Drisdol) 50,000 Unit Cap, 50,000 UNIT PO QWEEK, (Reported) ON SUNDAYS Scheduled PRN Albuterol Sulfate (Ventolin Hfa) 200 Puff/8 Gm Aers, 2 PUFF INH Q4H PRN for SHORTNESS OF BREATH, (Reported) Nitroglycerin (Nitroglycerin) 0.4 Mg Sub, 0.4 MG SL Q5MP PRN for CHEST PAIN, ( Reported) Allergies Coded Allergies: Shellfish Allergy (Verified Allergy, Severe, ANAPHYLAXIS, 07/23/14) SOFI Inhibitors (Verified Allergy, Unknown, 07/23/14) Bupropion (Verified Allergy, Unknown, 07/23/14) Ciprofloxacin (Verified Allergy, Unknown, 07/23/14) Contrast Media (Verified Allergy, Unknown, IVP DYE, 07/23/14) Latex (Verified Allergy, Unknown, 07/23/14) Pentazocine (Verified Allergy, Unknown, 01/17/13) Past Medical History Medical History CHF, CAD, TIA CKD RA liver cirrhosis Surgical History Colon resection, cholecystectomy, hernia repair Family History Significant Family History: Cancer, Heart disease, Renal disease Social History * Smoker: Denies Alcohol: Denies Drugs: denies Review of Symptoms Constitutional: Denies: Chills, Fever, Night Sweats Eyes: Denies: Pain, Vision change ENT: Denies: Head Aches, Ear Pain, Dysphagia Skin: Denies: Rash, Lesions, Breakdown Pulmonary: Reports: Dyspnea, Denies: Cough Cardiovascular: Reports: Chest Pain, Denies: Palpitations, Orthopnea, Paroxysmal Noc. Dyspnea, Lt Headedness Gastrointestinal: Denies: Nausea, Vomiting, Abdominal Pain, Diarrhea Genitourinary: Denies: Dysuria, Frequency, Incontinence, Retention Hematologic: Denies: Bruising, Bleeding Excessively Musculoskeletal: Denies: Neck Pain, Back Pain, Joint Pain, Muscle Pain, Spasms Neurological: Denies: Weakness, Numbness, Change in speech, Confusion Psych: Reports: Mood Normal, Denies: Depression, Memory Issues Physical Examination General Exam: Positive: Alert, No Acute Distress Eye Exam: Positive: PERRLA, Conjunctiva & lids normal, EOMI, Negative: Sclera icteric ENT Exam: Positive: Atraumatic, Mucous membr. moist/pink, Pharynx Normal Neck Exam: Positive: Supple, Negative: JVD, thyromegaly Chest Exam: Positive: Clear to auscultation, Normal air movement Heart Exam: Positive: Rate Normal, Regular Rhythm, Normal S1, Normal S2, Negative: Murmurs, Rubs Telemetry: Positive: No significant arrhythmia Abdomen Exam: Positive: Normal bowel sounds, Soft, Negative: Tenderness, Hepatospenomegaly Extremity Exam: Positive: Normal pulses, Negative: Clubbing, Cyanosis, Edema Skin Exam: Positive: Nl turgor and temperature, Negative: Breakdown, Lesion Neuro Exam: Positive: Normal Gait, Normal Speech, Cranial Nerves 3-12 NL, Reflexes 2+ Psych Exam: Positive: Mental status NL, Mood NL, Oriented x 3 Vital Signs Vital Signs Date Time Temp Pulse Resp B/P (MAP) Pulse Ox O2 Delivery O2 Flow Rate FiO2 04/11/17 00:29 64 128/61 (83) 95 04/10/17 23:17 18 04/10/17 20:36 99.0 Room Air Laboratory Data Labs 24H Laboratory Tests 2 04/10/17 20:35: D-Dimer, Quantitative 1245.4H, Anion Gap 8, Glomerular Filtration Rate 42.2, Blood Urea Nitrogen 36H, Creatinine 1.32H, Sodium Level 141, Potassium Level 3.4L, Chloride Level 106, Carbon Dioxide Level 27, Calcium Level 8.5L, Aspartate Amino Transf (AST/SGOT) 14L, Alanine Aminotransferase (ALT/SGPT) 16, Total Creatine Kinase 71, Alkaline Phosphatase 90, Total Bilirubin 0.2, Total Protein 7.3, Albumin 3.3, Creatine Kinase MB 1.0, Creatine Kinase MB Relative Index 1.40, Troponin I < 0.02, B-Type Natriuretic Peptide 39.4, Albumin/ Globulin Ratio 0.83L CBC/BMP Laboratory Tests 04/10/17 20:35 Red Blood Count 3.76 L, Mean Corpuscular Volume 84.6, Mean Corpuscular Hemoglobin 26.8 L, Mean Corpuscular Hemoglobin Concent 31.7 L, Red Cell Distribution Width 14.6 H, Calcium Level 8.5 L, Aspartate Amino Transf (AST/SGOT ) 14 L, Alanine Aminotransferase (ALT/SGPT) 16, Total Creatine Kinase 71, Alkaline Phosphatase 90, Total Bilirubin 0.2, Total Protein 7.3, Albumin 3.3 Assessment/Plan 71-year-old female, history of CAD with a recent cath in December 2016, presented with chest pain Problems (1) Diabetes Status: Chronic Problem Text: Continue with sliding scale insulin. Metformin was hold due to CHF (2) Chest pain Problem Text: Troponin. EKG unremarkable. Continue with hall monitor, echocardiogram, day hospitalist will call cardiology as consult (3) CHF (congestive heart failure) Status: Chronic Problem Text: Continue with the Toprol, Lasix, Aldactone (4) Seizure disorder Status: Chronic Problem Text: Continue with Keppra (5) HTN (hypertension) Status: Chronic Problem Text: Continue with Norvasc, Toprol Plan / VTE VTE Prophylaxis Ordered?: Yes Plan Diet: Continue Current Activity: Continue Current Anticipated Discharge: Home DELMAR WEST MD Apr 11, 2017 01:43
[2017-04-11] MEDS ORDERED: ALBUTEROL 90 MCG/ACT 8GM HFA INHALER INH PRN (01:45)
[2017-04-11] MEDS ORDERED: NITROGLYCERIN 0.4 MG SUBL TABLET SL PRN (01:45)
[2017-04-11] MEDS ORDERED: DEXTROSE 50% 50 ML SYRINGE IV PRN (01:45)
[2017-04-11] MEDS ORDERED: GLUCAGON FOR INJ 1 MG VIAL (J1610) SC PRN (01:45)
[2017-04-11] MEDS ORDERED: GLUCOSE 4 GM CHEW TABLET PO PRN (01:45)
[2017-04-11 02:10] VITALS: BP 149/67
[2017-04-11] MEDS: levETIRAcetam 250MG TABLET (KEPPRA) PO SCH ×3 (02:43→20:49)
[2017-04-11] MEDS: GABAPENTIN 400 MG CAP PO SCH ×2 (02:43→20:50)
[2017-04-11] MEDS: PANTOPRAZOLE 40MG TAB (PROTONIX) PO SCH ×3 (02:43→20:50)
[2017-04-11] MEDS: oxyCODONE 5MG TAB PO SCH ×3 (02:49→13:00)
[2017-04-11] MEDS: rOPINIRole 1MG TAB PO SCH ×3 (02:50→20:49)
[2017-04-11] MEDS: NS 1,000 ML IV SCH (06:45)
[2017-04-11 07:15] LABS: MEAN CORPUSCULAR HEMOGLOBIN 27.3 pg (27.0-33.0); MEAN CORPUSCULAR HGB CONC 32.1 g/dl (32.0-36.5); MEAN CORPUSCULAR VOLUME 85.1 fl (80.0-96.0); RED CELL DISTRIBUTION WIDTH 14.8 % (11.5-14.5); WHITE BLOOD COUNT 7.8 K/mm3 (4.0-10.0)
[2017-04-11] MEDS: HumaLOG INSULIN (NovoLOG) PER UNIT SC SCH ×3 (07:24→17:30)
--- NOTE | 2017-04-11 07:30 | ECGEPIP ---
Stationary ECG Study 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
[2017-04-11 07:35] LABS: ANION GAP 5 MEQ/L (8-16); BLOOD UREA NITROGEN 32 MG/DL (7-18); CALCIUM LEVEL 8.5 MG/DL (8.8-10.2); CARBON DIOXIDE LEVEL 30 MEQ/L (21-32); CHLORIDE LEVEL 108 MEQ/L (98-107); CREATININE FOR GFR 1.12 MG/DL (0.55-1.02); GLOMERULAR FILTRATION RATE 51.1 (>39); GLUCOSE, FASTING 97 MG/DL (83-110); SODIUM LEVEL 143 MEQ/L (136-145)
[2017-04-11 08:00] VITALS: BP 152/69
--- NOTE | 2017-04-11 08:38 | REP ---
CHEST PA AND LATERAL: 04/10/2017. COMPARISON: 02/20/2015, 07/18/2014. CLINICAL HISTORY: Dyspnea. FINDINGS: Lungs are well inflated without infiltrate, effusion, atelectasis or mass. The heart is not enlarged. The aorta is mildly tortuous without aneurysm. There is a mild dextroconvex curvature in the thoracic spine. The airway is intact. No lateral pleural thickening or apical pneumothorax. Bony thoracic spine shows degenerative changes mid and lower thoracic region without acute compression deformity. There are upper abdominal surgical clips from prior cholecystectomy and in the gastroesophageal junction region and left upper quadrant as well. IMPRESSION: 1. No acute infiltrate, effusion, cardiomegaly, edema, atelectasis or mass. 2. Mildly tortuous aorta without aneurysm. 3. Postsurgical changes upper abdomen. Nothing acute. Signed by Reji Mejia MD 04/11/2017 10:39 A
[2017-04-11] MEDS: ANASTROZOLE 1 MG TAB PO SCH (08:49)
[2017-04-11] MEDS: ATORVASTATIN 20 MG TAB PO SCH (08:49)
[2017-04-11] MEDS: FUROSEMIDE 40 MG TAB PO SCH (08:50)
[2017-04-11] MEDS: amLODIPine 5 MG TAB PO SCH (08:50)
[2017-04-11] MEDS: CLOPIDOGREL 75 MG TAB PO SCH (08:50)
[2017-04-11] MEDS: METOPROLOL SUCC *XL* 25MG TAB (TopROL *XL*) PO SCH (08:51)
[2017-04-11] MEDS: VENLAFAXINE **XR** 75MG CAPSULE PO SCH (08:51)
[2017-04-11] MEDS: ASPIRIN 81 MG ENTERIC TAB PO SCH (08:51)
[2017-04-11 12:00] VITALS: BP 104/62
--- NOTE | 2017-04-11 13:59 | IPNPDOC ---
Subjective Date Seen The patient was seen on 04/11/17. Subjective Chief Complaint/HPI The patient is a 71-year-old female admitted with a reason for visit of Chest Pain. Events since last encounter Feeling well, slept well last night, no complaint of pain, chest pain or shortness of breath, wonders if this event was brought on by exposure to heat and too much standing at a swim meet yesterday Constitutional: Denies: Chills, Fever Pulmonary: Denies: Dyspnea, Cough Cardiovascular: Denies: Chest Pain, Palpitations Gastrointestinal: Denies: Nausea, Vomiting, Abdominal Pain Objective Physical Examination General Exam: Positive: Alert, Cooperative, No Acute Distress Eye Exam: Negative: Sclera icteric ENT Exam: Positive: Mucous membr. moist/pink Neck Exam: Positive: Supple Chest Exam: Positive: Clear to auscultation, Normal air movement, Negative: Rales, Rhonchi, Wheezing Heart Exam: Positive: Rate Normal, Regular Rhythm, Normal S1, Normal S2, Negative: Murmurs, Rubs Telemetry: Positive: No significant arrhythmia Abdomen Exam: Positive: Normal bowel sounds, Soft, Negative: Tenderness Extremity Exam: Negative: Edema Neuro Exam: Positive: Normal Speech Psych Exam: Positive: Mental status NL, Mood NL, Oriented x 3 Assessment /Plan Problems (1) Diabetes Status: Chronic Problem Text: Continue with sliding scale insulin. (2) Chest pain Problem Text: Chest pain resolved. Troponins negative, continue telemetry. Consider stress test, will discuss with pt's finance advisor when he is available tomorrow (3) CHF (congestive heart failure) Status: Chronic Problem Text: Continue with the Toprol, Lasix, Aldactone (4) Seizure disorder Status: Chronic Problem Text: Continue with Keppra (5) HTN (hypertension) Status: Chronic Problem Text: Continue with Norvasc, Toprol Plan/VTE VTE Prophylaxis Ordered?: Yes Plan Diet: Continue Current Activity: Continue Current Anticipated Discharge: Home VS, I&O, 24H, Geraldine Vital Signs/I&O Vital Signs Date Time Temp Pulse Resp B/P (MAP) Pulse Ox O2 Delivery O2 Flow Rate FiO2 04/11/17 12:00 98.3 54 18 104/62 (76) 97 Room Air I&O- Last 24 Hours up to 6 AM 04/11/17 05:59 Intake Total 500 ml Output Total 500 ml Balance 0 ml Laboratory Data 24H LABS Laboratory Tests 2 04/10/17 20:35: D-Dimer, Quantitative 1245.4H, Anion Gap 8, Glomerular Filtration Rate 42.2, Blood Urea Nitrogen 36H, Creatinine 1.32H, Sodium Level 141, Potassium Level 3.4L, Chloride Level 106, Carbon Dioxide Level 27, Calcium Level 8.5L, Aspartate Amino Transf (AST/SGOT) 14L, Alanine Aminotransferase (ALT/SGPT) 16, Total Creatine Kinase 71, Alkaline Phosphatase 90, Total Bilirubin 0.2, Total Protein 7.3, Albumin 3.3, Creatine Kinase MB 1.0, Creatine Kinase MB Relative Index 1.40, Troponin I < 0.02, B-Type Natriuretic Peptide 39.4, Albumin/ Globulin Ratio 0.83L 04/11/17 06:49: Bedside Glucose (Misc Panel) 114H 04/11/17 06:54: Anion Gap 5L, Glomerular Filtration Rate 51.1, Blood Urea Nitrogen 32H, Creatinine 1.12H, Sodium Level 143, Potassium Level 4.0, Chloride Level 108H, Carbon Dioxide Level 30, Calcium Level 8.5L, Total Creatine Kinase 65, Creatine Kinase MB 1.4, Creatine Kinase MB Relative Index 2.15, Troponin I < 0.02 04/11/17 11:50: Bedside Glucose (Misc Panel) 93 CBC/BMP Laboratory Tests 04/10/17 20:35 Red Blood Count 3.76 L, Mean Corpuscular Volume 84.6, Mean Corpuscular Hemoglobin 26.8 L, Mean Corpuscular Hemoglobin Concent 31.7 L, Red Cell Distribution Width 14.6 H, Calcium Level 8.5 L, Aspartate Amino Transf (AST/SGOT ) 14 L, Alanine Aminotransferase (ALT/SGPT) 16, Total Creatine Kinase 71, Alkaline Phosphatase 90, Total Bilirubin 0.2, Total Protein 7.3, Albumin 3.3 04/11/17 06:54 Calcium Level 8.5 L, Total Creatine Kinase 65 04/11/17 06:55 Red Blood Count 3.56 L, Mean Corpuscular Volume 85.1, Mean Corpuscular Hemoglobin 27.3, Mean Corpuscular Hemoglobin Concent 32.1, Red Cell Distribution Width 14.8 H CORBY DODGE MD Apr 11, 2017 13:59
[2017-04-11 15:50] VITALS: BP 142/64
[2017-04-11 19:46] VITALS: BP 148/69
[2017-04-11] MEDS ORDERED: oxyCODONE 5MG TAB As Ordered ONE (20:47)
[2017-04-11] MEDS: oxyCODONE 5MG TAB PO PRN (20:53)
[2017-04-11 23:42] VITALS: BP 138/65
[2017-04-12 03:38] VITALS: BP 125/58
[2017-04-12] MEDS ORDERED: oxyCODONE 5MG TAB As Ordered ONE (03:53)
[2017-04-12] MEDS: oxyCODONE 5MG TAB PO PRN (03:59)
[2017-04-12 05:10] LABS: MEAN CORPUSCULAR HEMOGLOBIN 26.8 pg (27.0-33.0); MEAN CORPUSCULAR HGB CONC 31.8 g/dl (32.0-36.5); MEAN CORPUSCULAR VOLUME 84.3 fl (80.0-96.0); RED CELL DISTRIBUTION WIDTH 14.9 % (11.5-14.5); WHITE BLOOD COUNT 7.4 K/mm3 (4.0-10.0)
[2017-04-12 05:29] LABS: ALBUMIN/GLOBULIN RATIO 0.7 (1.00-1.93); BILIRUBIN,TOTAL 0.3 MG/DL (0.2-1.0); CALCIUM LEVEL 8.7 MG/DL (8.8-10.2); CREATININE FOR GFR 1.08 MG/DL (0.55-1.02); GLOMERULAR FILTRATION RATE 53.2 (>39); POTASSIUM SERUM 3.5 MEQ/L (3.5-5.1); TOTAL PROTEIN 7.3 GM/DL (6.4-8.2)
[2017-04-12] MEDS: HumaLOG INSULIN (NovoLOG) PER UNIT SC SCH ×2 (07:22→12:00)
[2017-04-12 08:00] VITALS: BP 158/69
[2017-04-12] MEDS ORDERED: PREVNAR 13 VACCINE SYRINGE (CPT CODE:90670) IM ONE (09:00)
[2017-04-12] MEDS: ANASTROZOLE 1 MG TAB PO SCH (09:00)
[2017-04-12 09:49] VITALS: BP 158/69
[2017-04-12] MEDS: rOPINIRole 1MG TAB PO SCH (09:49)
[2017-04-12] MEDS: levETIRAcetam 250MG TABLET (KEPPRA) PO SCH (09:49)
[2017-04-12] MEDS: amLODIPine 5 MG TAB PO SCH (09:49)
[2017-04-12] MEDS: VENLAFAXINE **XR** 75MG CAPSULE PO SCH (09:49)
[2017-04-12] MEDS: CLOPIDOGREL 75 MG TAB PO SCH (09:49)
[2017-04-12] MEDS: PANTOPRAZOLE 40MG TAB (PROTONIX) PO SCH (09:50)
[2017-04-12] MEDS: METOPROLOL SUCC *XL* 25MG TAB (TopROL *XL*) PO SCH (09:50)
[2017-04-12] MEDS: ATORVASTATIN 20 MG TAB PO SCH (09:50)
[2017-04-12] MEDS: FUROSEMIDE 40 MG TAB PO SCH (09:50)
[2017-04-12] MEDS: ASPIRIN 81 MG ENTERIC TAB PO SCH (09:51)
[2017-04-12 12:00] VITALS: BP 142/63
[2017-04-12] MEDS ORDERED: OXYC10TA12 PO (14:51)
--- NOTE | 2017-04-13 06:45 | DSES ---
DATE OF ADMISSION: 04/11/2017 DATE OF DISCHARGE: 04/12/2017 SPECIALISTS INVOLVED IN CARE: None. COMPLICATIONS: None during stay. PROCEDURES: No procedures performed during her stay. DISCHARGE DIAGNOSES: 1. Chest pain. 2. Congestive heart failure. 3. Diastolic dysfunction. 4. History of transient ischemic attack (TIA). 5. Rheumatoid arthritis. 6. History of cirrhosis. 7. Chronic kidney disease. SUMMARY OF PRESENTATION: This is a 71-year-old who was outdoors in [place], it was a john day which she is not accustomed to, she was excited because her granddaughter was doing quite well and she probably stayed out in the heat a little bit too long and developed chest pain and discomfort which was nonradiating. It was substernal, sudden onset. She was brought to the emergency department for evaluation. She recently had a catheterization which was not notable for any disease requiring intervention. The chest pain was resolved with nitroglycerine. She was moderated at the hospital for two midnights without significant recurrence of her pain. She was feeling well and had no complaints of chest pain or shortness of breath. I did discuss this case by phone with the patient's outpatient fha underwriter after he had reviewed the angiogram results. The plan is to send her home for outpatient cardiology followup. PHYSICAL EXAMINATION: VITAL SIGNS: On the day of discharge temperature is 98.1, pulse 60, respiratory rate 18, blood pressure 142,63, 98% on room air. GENERAL: She is awake, appropriately interactive, pleasantly conversant, mildly anxious. LUNGS: Breathing is symmetrical and rested. HEART: Regular rate and rhythm, no significant arrhythmia on the monitor. ABDOMEN: Soft, nontender. LABORATORY DATA: White cell count 7.4, hemoglobin 9.7, platelets 232, BUN 27, creatinine 1.08. DISCHARGE INSTRUCTIONS: 1. Followup with Dr. Reyna on April 23 at 2:00 p.m., Dr. Lipscomb on April 14 at 11:15. 2. Diet and activities as tolerated. DISCHARGE MEDICATIONS: - continue Ventolin two puffs every 4 hours as needed for shortness of breath - amlodipine 5 mg by mouth daily - ascorbic acid 1000 mg by mouth daily - aspirin 81 mg by mouth daily - Lipitor 60 mg by mouth daily - Zebeta 2.5 mg by mouth daily - Bumex 1 mg by mouth daily - vitamin D supplement by mouth daily - Plavix 75 mg by mouth daily - B12 supplement by mouth daily - Neurontin 400 mg by mouth at bedtime - Keppra 750 mg by mouth twice a day - magnesium 64 mg by mouth daily - metformin 1000 mg by mouth daily - sublingual nitroglycerin as needed - Protonix 40 mg by mouth twice a day - potassium chloride 10 mEq by mouth daily - Requip 4 mg by mouth twice a day - spironolactone 25 mg by mouth daily I have changed her oxycodone to 10 mg by mouth twice daily from four times daily. Stop taking Anastrozole, discontinue previous dose of Lasix, discontinue metoprolol succinate, discontinue venlafaxine for now.
== END 2017-04-12 16:25 | disposition home or self-care (01) | DRG 313 ==
LOC: EDBD 20:24 → M ED 22:44 → M ED INP 04-11 01:05 → M PCU 04-11 02:10
PROVIDERS: ADMIT Internal Medicine; ATTEND Internal Medicine
DX: R07.2 Precordial pain (principal); I50.32 Chronic diastolic (congestive) heart failure; N18.9 Chronic kidney disease, unspecified; Z91.040 Latex allergy status; Z91.041 Radiographic dye allergy status; M06.9 Rheumatoid arthritis, unspecified; K74.60 Unspecified cirrhosis of liver; Z79.899 Other long term (current) drug therapy; Z79.82 Long term (current) use of aspirin; Z91.013 Allergy to seafood; Z88.8 Allergy status to other drugs, medicaments and biological substances; G40.909 Epilepsy, unspecified, not intractable, without status epilepticus; I12.9 Hypertensive chronic kidney disease with stage 1 through stage 4 chronic kidney disease, or unspecified chronic kidney disease

== ENCOUNTER → 2017-04-26 | Outpatient (REF) | payer MEDICARE, OTHER ==
[~2017-04-26] MED LIST changes: +ASCO10003 PO; +ASCO25TA PO; +ASPI81TA85 PO; +D 1010004 PO; +FIOR1CAP PO; +MECL-86 PO; +METO1TAB32 PO; -METO25TA74 PO; +PERC7.5T11 PO; +PLAV1TAB2 PO; -PLAV75TA38 PO; +ROPI4TAB PO; +VENL75CA47 PO; +VITA10002 PO; -VITA100037 PO; +VITA100067 PO
== END ==
LOC: M LABNEURO 12:15
PROVIDERS: ATTEND Physician Assistant Medical
DX: G40.909 Epilepsy, unspecified, not intractable, without status epilepticus (principal)

== ENCOUNTER → 2017-05-14 | Outpatient (CLI) | payer MEDICARE, OTHER ==
[2017-05-14 14:03] LABS: FOLATE 9.8 NG/ML
[2017-05-14 14:06] LABS: ALBUMIN 3.9 GM/DL (3.2-5.2); ALBUMIN/GLOBULIN RATIO 0.98 (1.00-1.93); BILIRUBIN,TOTAL 0.3 MG/DL (0.2-1.0); CALCIUM LEVEL 9.5 MG/DL (8.8-10.2); CREATININE FOR GFR 1.2 MG/DL (0.55-1.02); GLOMERULAR FILTRATION RATE 47.1 (>39); POTASSIUM SERUM 4.1 MEQ/L (3.5-5.1); TOTAL PROTEIN 7.9 GM/DL (6.4-8.2)
[2017-05-14 14:17] LABS: BASO % 0.3 % (0.0-1.0); EOS # 0.3 K/mm3 (0.0-0.50); EOS % 3.5 % (0.0-3.0); LARGE UNSTAINED CELL # 0.1 K/mm3 (0.0-0.4); LARGE UNSTAINED CELL % 1.8 % (0.0-4.0); LYMPH # 1.3 K/mm3 (1.5-4.5); LYMPH % 16.7 % (24.0-44.0); MEAN CORPUSCULAR HEMOGLOBIN 26.6 pg (27.0-33.0); MEAN CORPUSCULAR HGB CONC 31.8 g/dl (32.0-36.5); MEAN CORPUSCULAR VOLUME 83.6 fl (80.0-96.0); MONO # 0.4 K/mm3 (0.0-0.8); MONO % 5.3 % (0.0-5.0); NEUTROPHILS # 5.6 K/mm3 (1.8-7.7); NEUTROPHILS % 72.3 % (36.0-66.0); PLATELET COUNT, AUTOMATED 250 k/mm3 (150-450); WHITE BLOOD COUNT 7.7 K/mm3 (4.0-10.0)
== END ==
LOC: M WUC 09:32
PROVIDERS: ATTEND Family Medicine
DX: R63.4 Abnormal weight loss (principal)

== ENCOUNTER → 2017-05-25 | Outpatient (CLI) | payer MEDICARE, OTHER | LOC: M SMT 11:25 | PROVIDERS: ATTEND Physician Assistant | DX: I25.10 Atherosclerotic heart disease of native coronary artery without angina pectoris (principal); E78.00 Pure hypercholesterolemia, unspecified ==

== ENCOUNTER → 2017-05-28 | Outpatient (CLI) | payer MEDICARE, OTHER ==
--- NOTE | 2017-06-15 01:42 | ECWPNPC ---
PATIENT NAME: MAGI MCKEON : 1945 GENDER: FEMALE VISIT DATE: 05/28/2017 DISCHARGE DATE: 05/28/17 1526 VISIT LOCKED DATE TIME: PHYSICIAN: KIRAN MONTAÑO RESOURCE: KIRAN MONTAÑO REASON FOR APPOINTMENT 1. BACK PAIN HISTORY OF PRESENT ILLNESS HISTORY OF PRESENT ILLNESS: PAIN THE PATIENT DESCRIBES THE PAIN... 70 YEAR OLD FEMALE PATIENT WITH HISTORY OF CHRONIC BACK PAIN. PATIENT DESCRIBES THE PAIN ACHING AND BURNING AND HAVING IT ALL THE TIME WITH A PAIN SCORE OF 6/10. PATIENT RECEIVED A THERAPEUTIC LUMBAR FACET BLOCK ON 08/19/16 AND STATES THAT SHE HAS GOOD PAIN RELIEF FOR OVER 6 MONTHS BUT THE PAIN IS STARTING TO RETURN. CURRENTLY THE PATIENT IS USING OXYCODONE 7.5 MG UP TO 2 TIMES A DAY. PATIENT STATES THAT BEING ON HER FEET, WALKING, AND HARD FLOORS INCREASES THE PAIN IN HER LOWER BACK THE MOST AND AT THIS TIME THE ONLY THING THAT MILDLY HELPS WITH THE PAIN IS THE MEDICATION OR INTERVENTIONS. MRS. MCKEON STATES THAT RECENTLY HER NECK HAS BEEN STARTING TO HURT QUITE OFTEN AND SHE IS UNABLE TO TURN HER HEAD AND KEEP IT TURNED FOR MORE THEN A FEW SECONDS OR THE PAIN BECOMES SEVERE. PATIENT DENIES UNEXPLAINABLE WEIGHT LOSS, FEVER, CHILLS, NEW CHANGES ON HER URINARY OR BOWEL CONTROL. FALL RISK SCREENING: SCREENING :NO FALLS IN THE PAST YEAR CURRENT MEDICATIONS TAKING BUMETANIDE 1 MG TABLET 1 TABLET ORALLY ONCE A DAY TAKING BISOPROLOL FUMARATE 5 MG TABLET 0.5 ORALLY ONCE A DAY TAKING VITAMIN D (ERGOCALCIFEROL) 14448 UNIT CAPSULE 1 CAPSULE ORALLY WEEKLY TAKING ROPINIROLE HCL 4 MG TABLET 1 TABLET ORALLY TWICE DAILY TAKING METFORMIN HCL ER 500 MG TABLET EXTENDED RELEASE 24 HOUR 2 TAB ORALLY ONCE A DAY TAKING MAGNESIUM 300 MG CAPSULE 1 CAPSULE WITH A MEAL ORALLY TWICE A DAY TAKING SPIRONOLACTONE 25 MG TABLET 1 TABLET ORALLY ONCE A DAY TAKING ATORVASTATIN CALCIUM 80 MG TABLET 1 TABLET ORALLY ONCE A DAY TAKING PROVENTIL HFA 108 (90 BASE) MCG/ACT AEROSOL SOLUTION 2 PUFFS NEEDED INHALATION EVERY 4 HRS TAKING NITROLINGUAL 0.4 MG/DOSE 1 TRANSLINGUAL DIRECTED TAKING POTASSIUM CHLORIDE CR 10MEQ 1 CAP ORALLY DAILY TAKING AMLODIPINE BESYLATE 5 MG TABLET ORALLY DAILY TAKING VITAMIN D3 1000 UNIT CAPSULE ORALLY DAILY TAKING PLAVIX 75 MG TABLET ORALLY DAILY TAKING GABAPENTIN 100 MG CAPSULE 3-4 TABS ORALLY BEFORE BEDTIME TAKING OXYCODONE HCL 10 MG TABLET ORALLY BID NEEDED NOT-TAKING AMITRIPTYLINE HCL 10 MG TABLET 2 TABLET ORALLY TWICE A DAY NOT-TAKING MECLIZINE HCL 25 MG TABLET CHEWABLE 1 TABLET NEEDED ORALLY THREE TIMES DAILY NEEDED NOT-TAKING LASIX 40 MG TABLET ORALLY DAILY NOT-TAKING ANASTROZOLE 1 MG TABLET 1 TABLET ORALLY ONCE A DAY, NOTES: 08/18/16 0800 NOT-TAKING ASPIR-81 81 MG TABLET DELAYED RELEASE 1 TABLET ORALLY ONCE A DAY, NOTES: 08/17/16 NOT-TAKING VENLAFAXINE HCL ER 150 MG TABLET EXTENDED RELEASE 24 HOUR 1 TABLET WITH FOOD ORALLY ONCE A DAY, NOTES: 08/19/16 0730 NOT-TAKING LEVETIRACETAM ER 500 MG TABLET EXTENDED RELEASE 24 HOUR 1 TAB ORALLY TWICE DAILY, NOTES: 08/18/16 0800 NOT-TAKING PRIMIDONE 50 MG TABLET ORALLY TWO TIMES DAILY, NOTES: 08/18/16 1900 NOT-TAKING [id number] 50-325-40 MG CAPSULE 1 CAPSULE NEEDED ORALLY FOUR TIMES DAILY NEEDED, NOTES: NONE LATELY NOT-TAKING OXYCODONE-ACETAMINOPHEN 7.5-325 MG TABLET 1 TABLET NEEDED ORALLY EVERY 6 HRS, NOTES: 3 DAYS AGO NOT-TAKING PANTOPRAZOLE SODIUM 40 MG TABLET DELAYED RELEASE 1 CAP ORALLY BID, NOTES: 08/18/16 0800 NOT-TAKING PRILOSEC 40 MG CAPSULE DELAYED RELEASE 1 CAPSULE ORALLY ONCE A DAY MEDICATION LIST REVIEWED AND RECONCILED WITH THE PATIENT PAST MEDICAL HISTORY CATARACTS BILATERAL ANEMIA SWELLING IN THE LEGS ASTHMA COPD SLEEP APNEA ANGINA CHF CAD HTN CIRRHOSIS BOWEL PROBLEMS TYPE 2 DIABETES END STAGE RENAL DISEASE 30% FUNCTIONING RA OSTEOARTHRITIS DEMENTIA SHORT TERM MEMORY ISSUES NEUROPATHY PVD DEPRESSION SKIN CANCER BREAST CANCER SUSPECTED TIA'S ORTHOSTATIC HYPOTENSION ALLERGIES CIPRO: CONFUSION SOFI INHIBITOR (FOR ALLERGIES USE ONLY): COUGH WELLBUTRIN SR: WEIGHT GAIN SHELLFISH: ANAPHYLAXIS BEE STINGS: SWELLING LATEX: RASH SURGICAL HISTORY CHOLECYSTECTOMY 1966 TUMOR ON LEG REMOVED 1982 KNEE REPLACEMENT 2007 KNEE REPLACEMENT 2010 COLON RESECTION 2006 HERNIA 2016 HOSPITALIZATION/MAJOR DIAGNOSTIC PROCEDURE SUSPECTED TIA 01/2017 FALL/UTI 02/2017 REVIEW OF SYSTEMS REVIEWED BY: PROVIDER: KIRAN MONTAÑO MD . CONSTITUTIONAL: ANY CHANGE IN YOUR MEDICAL CONDITION? YES, PT STATES SHE TRAVELS TO [place] FOR WINTER. WHILE IN [place], SHE STATES SHE WAS UNABLE TO COMPLETE A FORM TO WRITE HER NAME AND ADDRESS, COULD NOT RECALL PERSONAL INFORMATION. PT WAS TAKEN TO HOSPITAL WHERE SHE WAS DX WITH SUSPECTED TIA'S.&NBSP;. CHILLS &NBSP;&NBSP; NO&NBSP;. FEVER &NBSP;&NBSP; NO&NBSP;. INFECTION: DO YOU HAVE NEW INFECTIONS? NO . DO YOU HAVE HISTORY OF MRSA? NO . MUSCULOSKELETAL: ANY NEW PATTERNS OF PAIN OR NUMBNESS? NO . GASTROENTEROLOGY: ANY NEW CHANGE IN BOWEL CONTROL? NO . GENITOURINARY: ANY NEW CHANGE IN BLADDER CONTROL? NO . IS THERE A CHANCE YOU COULD BE ? NO . HEMATOLOGY/LYMPH: DO YOU TAKE ANY BLOOD THINNERS? (FOR EXAMPLE- COUMADIN, PLAVIX, AGGRENOX, PLATEL, PRADAXA, OR XARELTO) YES, PLAVIX . WHEN WAS YOUR LAST DOSE? DATE: TIME: . NEUROLOGY: HAVE YOU FALLEN IN THE PAST 6 MONTHS? YES, PT REPORTS FALLING OFF DECK IN SPRING. PT STATES SHE WAS LAYING IN COLD [place]AMA WATER FOR ABOUT 1/2 HOUR, COULDN'T GET UP. PT WAS FOUND BY NEIGHBOR, ASSISTED TO GET UP AND BROUGHT TO [facility] WHERE SHE WAS ADMITTED AND STATES SHE WAS DX WITH ORTHOSTATIC HYPOTENSION&NBSP;. ANY NEW EXTREMITY NUMBNESS OR WEAKNESS? &NBSP;&NBSP; NO&NBSP;. CARDIOLOGY: DO YOU HAVE A PACEMAKER OR DEFIBRILLATOR? NO . RESPIRATORY: HAVE YOU BEEN SICK IN THE PAST WEEK? NO . FEVER NO . FLU LIKE SYMPTOMS? NO . COUGH NO . INTEGUMENTARY: DO YOU HAVE ANY RASHES OR OPEN SORES? NO . ALLERGIC/IMMUNO: ARE YOU ALLERGIC TO SHELLFISH OR IV DYE? YES, SHELLFISH . ANY NEW ALLERGIES? NO . PSYCHIATRIC: DO YOU HAVE THOUGHTS OF HURTING YOURSELF OR SOMEONE ELSE? NO . ARE YOU ABUSED, NEGLECTED, OR IN AN UNSAFE ENVIRONMENT? NO . ENDOCRINOLOGY: ARE YOU DIABETIC? YES . OTHER: DO YOU NEED ANY PRESCRIPTIONS? NO, PT WOULD LIKE TO DISCUSS RECENT CHANGE IN DOSE OF OXYCODONE, PT REPORTS LESS SLEEPING FOR MORE PAIN . IF YES, PLEASE LIST: ____ . ANY NEW PROBLEMS WITH YOUR MEDICATIONS? NO . WHEN DID YOU LAST EAT? ____ . WHEN DID YOU LAST DRINK? ____ . WHAT DID YOU LAST DRINK? ____ . NAME OF PERSON DRIVING YOU HOME? ____ . DO YOU HAVE ANY OTHER QUESTIONS OR CONCERNS NO . VITAL SIGNS WT 209.4 LBS, HT 60", BMI 40.89 INDEX, BP 174/72 MM HG, HR 55 /MIN, RR 16 /MIN, TEMP 98.8 F, OXYGEN SAT % 96%, SAFE IN ENV? (Y/N) Y, NA INITIALS SC 14:09, REVIEWED BY: EM. EXAMINATION : PATIENT IS ALERT O X 3 AND COOPERATIVE. PATIENT'S WALK IN ANTALGIC. TENDERNESS IN THE LOWER BACK AND THE PARASPINAL MUSCLE GROUP. TENDERNESS IN THE CERVICAL AREA AND PARASPINAL MUSCLE GROUP. CT DONE ON 03/25/16 W DISC BULGES THROUGH T12-L1 THROUGH L5-S1. L3-L4 SHOWS MODERATE NEURAL FORAMINAL NARROWING. MRI OF THE CERVICAL SPINE DONE ON 02/26/11 SHOWS MULTIPLE LEVELS OF ANNULAR BULGES, DEGENERATIVE FACET CHANGES, AND MILD CANAL STENOSIS. 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 MCKEON'S PAIN MANAGEMENT CASE. AT THIS TIME THE PATIENT WILL START GABAPENTIN FOR THE NEUROPATHIC PAIN. WE DISCUSSED SEVERAL INTERVENTIONS THAT MAY AID THE PATIENT IN PAIN RELIEF. DUE TO THE RADICULAR PAIN I WOULD LIKE TO MOVE FORWARD WITH A LUMBAR EPIDURAL. WE DISCUSSED THE RISK, BENEFITS, AND ALTNERATIVES OF THE INJECTION AND THE PATIENT WOULD LIKE TO PROCEED AT THIS TIME. PATIENT WILL NEED TO STOP PLAVIX FOR THIS INJECTION, AFTER WE HAVE RECEIVED A CLEARANCE FROM THE PRIMARY. INSTRUCTIONS WERE GIVEN, QUESTIONS WERE ANSWERED, PATIENT REPORTS UNDERSTANDING AND AGREES WITH THE PLAN. I, STEFANO CHO, DOCUMENTED THE ABOVE INFORMATION ACTING A SCRIBE FOR DR. MONTAÑO. I HAVE REVIEWED THE ABOVE DOCUMENT, WRITTEN BY STEFANO RM AND I VERIFY THAT IT IS ACCURATE. OTHERS START GABAPENTIN CAPSULE, 300 MG, 1 CAPSULE, ORALLY FOR PAIN, THREE TIMES A DAY MDD3, 30 DAY(S), 90, REFILLS 1 PROCEDURE CODES FA211 ESTABILISHED PATIENT [facility] FACILITY CHARGE G8427 DOC MEDS VERIFIED W/PT OR RE G8730 PAIN ASSESS POS TOOL F/U PLAN DOC DISPOSITION & COMMUNICATION FOLLOW UP LESI AFTER APPROVAL ELECTRONICALLY SIGNED BY KIRAN MONTAÑO MD ON 06/14/2017 AT 07:03 PM EDT DISCLAIMER : THIS IS A VISIT SUMMARY EXTRACTED FROM THE [employer] CHART. IT IS NOT A COPY OF THE [employer] PROGRESS NOTE. MTDD
== END ==
LOC: M PAIN 14:00
PROVIDERS: ATTEND Anesthesiology
DX: G89.29 Other chronic pain (principal); M51.16 Intervertebral disc disorders with radiculopathy, lumbar region; M47.816 Spondylosis without myelopathy or radiculopathy, lumbar region; M47.812 Spondylosis without myelopathy or radiculopathy, cervical region; M47.813 Spondylosis without myelopathy or radiculopathy, cervicothoracic region; M47.817 Spondylosis without myelopathy or radiculopathy, lumbosacral region; J44.9 Chronic obstructive pulmonary disease, unspecified; G47.30 Sleep apnea, unspecified; E11.9 Type 2 diabetes mellitus without complications; I11.0 Hypertensive heart disease with heart failure; M06.9 Rheumatoid arthritis, unspecified; M19.90 Unspecified osteoarthritis, unspecified site; F03.90 Unspecified dementia, unspecified severity, without behavioral disturbance, psychotic disturbance, mood disturbance, and anxiety; F32.9 Major depressive disorder, single episode, unspecified; Z91.013 Allergy to seafood; Z91.030 Bee allergy status; Z91.040 Latex allergy status; Z88.8 Allergy status to other drugs, medicaments and biological substances; Z79.01 Long term (current) use of anticoagulants; Z79.84 Long term (current) use of oral hypoglycemic drugs; Z79.899 Other long term (current) drug therapy

== ENCOUNTER → 2017-06-02 | Outpatient (REF) | payer MEDICARE, OTHER ==
[2017-06-04 00:07] LABS: Lyme Disease IgG/IgM Antibodie <0.91 ISR (0.00-0.90); Lyme Disease IgM Ab Quantitati <0.80 index (0.00-0.79)
== END ==
LOC: M LABDRAW1 11:11
PROVIDERS: ATTEND Family Medicine
DX: A69.20 Lyme disease, unspecified (principal)

== ENCOUNTER → 2017-06-02 | Outpatient (REF) | payer MEDICARE, OTHER ==
[2017-06-02 14:26] LABS: ALBUMIN 3.6 GM/DL (3.2-5.2); ALBUMIN/GLOBULIN RATIO 0.97 (1.00-1.93); BILIRUBIN,TOTAL 0.3 MG/DL (0.2-1.0); CREATININE FOR GFR 1.07 MG/DL (0.55-1.02); GLOMERULAR FILTRATION RATE 53.8 (>39); POTASSIUM SERUM 4.9 MEQ/L (3.5-5.1); TOTAL PROTEIN 7.3 GM/DL (6.4-8.2)
== END ==
LOC: M LABDRAW1 11:13
PROVIDERS: ATTEND Physician Assistant
DX: I25.10 Atherosclerotic heart disease of native coronary artery without angina pectoris (principal); E78.00 Pure hypercholesterolemia, unspecified; I50.32 Chronic diastolic (congestive) heart failure; A69.20 Lyme disease, unspecified

== ENCOUNTER → 2017-07-02 | Outpatient (CLI) | payer MEDICARE, OTHER ==
--- NOTE | 2017-07-11 00:38 | ECWPNPC ---
PATIENT NAME: MAGI MCKEON : 1945 GENDER: FEMALE VISIT DATE: 07/02/2017 DISCHARGE DATE: 07/02/17 1431 VISIT LOCKED DATE TIME: PHYSICIAN: KIRAN MONTAÑO RESOURCE: KIRAN MONTAÑO REASON FOR APPOINTMENT 1. LOW BACK HISTORY OF PRESENT ILLNESS HISTORY OF PRESENT ILLNESS: PAIN THE PATIENT DESCRIBES THE PAIN... 71 YEAR OLD FEMALE PATIENT WITH HISTORY OF CHRONIC BACK PAIN. PATIENT DESCRIBES THE PAIN ACHING AND BURNING AND HAVING IT ALL THE TIME WITH A PAIN SCORE OF 7/10. PATIENT RECEIVED A THERAPEUTIC LUMBAR FACET BLOCK ON 08/19/16 AND STATES THAT SHE HAS GOOD PAIN RELIEF FOR OVER 6 MONTHS BUT THE PAIN IS STARTING TO RETURN. CURRENTLY THE PATIENT IS USING OXYCODONE 7.5 MG UP TO 2 TIMES A DAY. PATIENT STATES THAT BEING ON HER FEET, WALKING, AND HARD FLOORS INCREASES THE PAIN IN HER LOWER BACK THE MOST AND AT THIS TIME THE ONLY THING THAT MILDLY HELPS WITH THE PAIN IS THE MEDICATION OR INTERVENTIONS. MRS. MCKEON STATES THAT RECENTLY HER NECK HAS BEEN STARTING TO HURT QUITE OFTEN AND SHE IS UNABLE TO TURN HER HEAD AND KEEP IT TURNED FOR MORE THEN A FEW SECONDS OR THE PAIN BECOMES SEVERE. PATIENT DENIES UNEXPLAINABLE WEIGHT LOSS, FEVER, CHILLS, NEW CHANGES ON HER URINARY OR BOWEL CONTROL. FALL RISK SCREENING: SCREENING :NO FALLS IN THE PAST YEAR CURRENT MEDICATIONS TAKING BUMETANIDE 1 MG TABLET 1 TABLET ORALLY ONCE A DAY TAKING BISOPROLOL FUMARATE 5 MG TABLET 0.5 ORALLY ONCE A DAY TAKING VITAMIN D (ERGOCALCIFEROL) 95493 UNIT CAPSULE 1 CAPSULE ORALLY WEEKLY TAKING ROPINIROLE HCL 4 MG TABLET 1 TABLET ORALLY TWICE DAILY TAKING METFORMIN HCL ER 500 MG TABLET EXTENDED RELEASE 24 HOUR 2 TAB ORALLY ONCE A DAY TAKING MAGNESIUM 300 MG CAPSULE 1 CAPSULE WITH A MEAL ORALLY TWICE A DAY TAKING SPIRONOLACTONE 25 MG TABLET 1 TABLET ORALLY ONCE A DAY TAKING ATORVASTATIN CALCIUM 80 MG TABLET 1 TABLET ORALLY ONCE A DAY TAKING PROVENTIL HFA 108 (90 BASE) MCG/ACT AEROSOL SOLUTION 2 PUFFS NEEDED INHALATION EVERY 4 HRS TAKING NITROLINGUAL 0.4 MG/DOSE 1 TRANSLINGUAL DIRECTED TAKING POTASSIUM CHLORIDE CR 10MEQ 1 CAP ORALLY DAILY TAKING AMLODIPINE BESYLATE 5 MG TABLET ORALLY DAILY TAKING VITAMIN D3 1000 UNIT CAPSULE ORALLY DAILY TAKING PLAVIX 75 MG TABLET ORALLY DAILY TAKING GABAPENTIN 100 MG CAPSULE 3-4 TABS ORALLY BEFORE BEDTIME, NOTES: USING 100MG CAPS FIRST. TAKES 3 TABS 3 TIMES DAILY TAKING OXYCODONE HCL 10 MG TABLET ORALLY BID NEEDED TAKING ANASTROZOLE 1 MG TABLET 1 TABLET ORALLY ONCE A DAY TAKING ASPIR-81 81 MG TABLET DELAYED RELEASE 1 TABLET ORALLY ONCE A DAY TAKING VENLAFAXINE HCL ER 150 MG TABLET EXTENDED RELEASE 24 HOUR 1 TABLET WITH FOOD ORALLY ONCE A DAY TAKING LEVETIRACETAM ER 500 MG TABLET EXTENDED RELEASE 24 HOUR 1 TAB ORALLY TWICE DAILY TAKING PANTOPRAZOLE SODIUM 40 MG TABLET DELAYED RELEASE 1 CAP ORALLY BID NOT-TAKING GABAPENTIN 300 MG CAPSULE 1 CAPSULE ORALLY FOR PAIN THREE TIMES A DAY MDD3 DISCONTINUED AMITRIPTYLINE HCL 10 MG TABLET 2 TABLET ORALLY TWICE A DAY DISCONTINUED MECLIZINE HCL 25 MG TABLET CHEWABLE 1 TABLET NEEDED ORALLY THREE TIMES DAILY NEEDED DISCONTINUED LASIX 40 MG TABLET ORALLY DAILY DISCONTINUED PRIMIDONE 50 MG TABLET ORALLY TWO TIMES DAILY DISCONTINUED [id number] 50-325-40 MG CAPSULE 1 CAPSULE NEEDED ORALLY FOUR TIMES DAILY NEEDED DISCONTINUED OXYCODONE-ACETAMINOPHEN 7.5-325 MG TABLET 1 TABLET NEEDED ORALLY EVERY 6 HRS DISCONTINUED PRILOSEC 40 MG CAPSULE DELAYED RELEASE 1 CAPSULE ORALLY ONCE A DAY MEDICATION LIST REVIEWED AND RECONCILED WITH THE PATIENT PAST MEDICAL HISTORY CATARACTS BILATERAL ANEMIA SWELLING IN THE LEGS ASTHMA COPD SLEEP APNEA ANGINA CHF CAD HTN CIRRHOSIS BOWEL PROBLEMS TYPE 2 DIABETES END STAGE RENAL DISEASE 30% FUNCTIONING RA OSTEOARTHRITIS DEMENTIA SHORT TERM MEMORY ISSUES NEUROPATHY PVD DEPRESSION SKIN CANCER BREAST CANCER SUSPECTED TIA'S ORTHOSTATIC HYPOTENSION ALLERGIES CIPRO: CONFUSION SOFI INHIBITOR (FOR ALLERGIES USE ONLY): COUGH WELLBUTRIN SR: WEIGHT GAIN SHELLFISH: ANAPHYLAXIS BEE STINGS: SWELLING LATEX: RASH REVIEW OF SYSTEMS REVIEWED BY: PROVIDER: KIRAN MONTAÑO MD . CONSTITUTIONAL: ANY CHANGE IN YOUR MEDICAL CONDITION? YES, MINI STROKES. WAS IN HOSPITAL IN FEBRUARY AND IN MARCH. . CHILLS NO . FEVER NO . INFECTION: DO YOU HAVE NEW INFECTIONS? NO . DO YOU HAVE HISTORY OF MRSA? NO . MUSCULOSKELETAL: ANY NEW PATTERNS OF PAIN OR NUMBNESS? NO . GASTROENTEROLOGY: ANY NEW CHANGE IN BOWEL CONTROL? NO . GENITOURINARY: ANY NEW CHANGE IN BLADDER CONTROL? NO . IS THERE A CHANCE YOU COULD BE ? NO . HEMATOLOGY/LYMPH: DO YOU TAKE ANY BLOOD THINNERS? (FOR EXAMPLE- COUMADIN, PLAVIX, AGGRENOX, PLATEL, PRADAXA, OR XARELTO) YES, PLAVIX . WHEN WAS YOUR LAST DOSE? DATE: TIME: 07-02-17 0700 . NEUROLOGY: HAVE YOU FALLEN IN THE PAST 6 MONTHS? NO . ANY NEW EXTREMITY NUMBNESS OR WEAKNESS? NO . CARDIOLOGY: DO YOU HAVE A PACEMAKER OR DEFIBRILLATOR? NO . RESPIRATORY: HAVE YOU BEEN SICK IN THE PAST WEEK? NO . FEVER NO . FLU LIKE SYMPTOMS? NO . COUGH NO . INTEGUMENTARY: DO YOU HAVE ANY RASHES OR OPEN SORES? NO . ALLERGIC/IMMUNO: ARE YOU ALLERGIC TO SHELLFISH OR IV DYE? YES, SHELLFISH . ANY NEW ALLERGIES? NO . PSYCHIATRIC: DO YOU HAVE THOUGHTS OF HURTING YOURSELF OR SOMEONE ELSE? NO . ARE YOU ABUSED, NEGLECTED, OR IN AN UNSAFE ENVIRONMENT? NO . ENDOCRINOLOGY: ARE YOU DIABETIC? YES . OTHER: DO YOU NEED ANY PRESCRIPTIONS? YES . IF YES, PLEASE LIST: OXYCODONE NO TYLENOL . ANY NEW PROBLEMS WITH YOUR MEDICATIONS? NO . WHEN DID YOU LAST EAT? ____ . WHEN DID YOU LAST DRINK? ____ . WHAT DID YOU LAST DRINK? ____ . NAME OF PERSON DRIVING YOU HOME? ____ . DO YOU HAVE ANY OTHER QUESTIONS OR CONCERNS YES, ABOUT MY NECK- IT CRACKS AND SENDS NUMBNESS IN MY HEAD , SEVERE STENOSIS MY LEG GIVES OUT . VITAL SIGNS WT 209.4 LBS, HT 60", BMI 40.89 INDEX, BP 172/74 MM HG, HR 53 /MIN, RR 16 /MIN, TEMP 96.8 F, OXYGEN SAT % 97%, NA INITIALS SC 12:34, REVIEWED BY: KYLER. EXAMINATION : PATIENT IS ALERT O X 3 AND COOPERATIVE. PATIENT'S WALK IN ANTALGIC. TENDERNESS IN THE LOWER BACK AND THE PARASPINAL MUSCLE GROUP. TENDERNESS IN THE CERVICAL AREA AND PARASPINAL MUSCLE GROUP. CT DONE ON 03/25/16 SHOW DISC BULGES THROUGH T12-L1 THROUGH L5-S1, L3-L4 SHOWS MODERATE NEURAL FORAMINAL NARROWING. MRI OF THE CERVICAL SPINE DONE ON 02/26/11 SHOWS MULTIPLE LEVELS OF ANNULAR BULGES, DEGENERATIVE FACET CHANGES, AND MILD CANAL STENOSIS. 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 MCKEON'S PAIN MANAGEMENT CASE. AT THIS TIME THE PATIENT WILL CONTINUE TO USE THE OXYCODONE. PATIENT DENIES ABUSE OF ANY MEDICATION, DENIES USE OF ILLEGAL SUBSTANCES, AND STATES SHE IS ONLY USING THE MEDICATION FOR PAIN MANAGEMENT. PATIENT WILL SIGN A NARCOTIC AGREEMENT TODAY AND GIVE URINE SAMPLE FOR TESTING. I WOULD LIKE THE PATIENT'S PRIMARY CARE OR DR. ASH TO GIVE CLEARANCE TO DO A LOVENOX BRIDGE TO STOP THE PLAVIX FOR AN INJECTION. WE DISCUSSED MOVING FORWARD WITH A LUMBAR EPIDURAL DUE TO THE RADICULAR PAIN. PATIENT WILL BE BOOKED ONCE WE HAVE RECEIVED CLEARANCE AND PATIENT HAS STOPPED PLAVIX AND STARTS THE LOVENOX BRIDGE. INSTRUCTIONS WERE GIVEN, QUESTIONS WERE ANSWERED, PATIENT REPORTS UNDERSTANDING AND AGREES WITH THE PLAN. I, STEFANO CHO, DOCUMENTED THE ABOVE INFORMATION ACTING A SCRIBE FOR DR. MONTAÑO. I HAVE REVIEWED THE ABOVE DOCUMENT, WRITTEN BY STEFANO RM AND I VERIFY THAT IT IS ACCURATE. OTHERS REFILL OXYCODONE HCL TABLET, 5 MG, 1 TAB, ORALLY MDD3, EVERY 4 HOURS NEEDED FOR PAIN, 30 DAY(S), 80, REFILLS 0 PROCEDURE CODES FA211 ESTABILISHED PATIENT [facility] FACILITY CHARGE G8427 DOC MEDS VERIFIED W/PT OR RE G4556 PAIN ASSESS POS TOOL F/U PLAN DOC DISPOSITION & COMMUNICATION FOLLOW UP 2 WEEKS ELECTRONICALLY SIGNED BY KIRAN MONTAÑO MD ON 07/09/2017 AT 04:29 PM EDT DISCLAIMER : THIS IS A VISIT SUMMARY EXTRACTED FROM THE [employer] CHART. IT IS NOT A COPY OF THE [employer] PROGRESS NOTE. EDY
== END ==
LOC: M PAIN 11:30
PROVIDERS: ATTEND Anesthesiology
DX: G89.29 Other chronic pain (principal); M51.16 Intervertebral disc disorders with radiculopathy, lumbar region; M47.812 Spondylosis without myelopathy or radiculopathy, cervical region; M47.813 Spondylosis without myelopathy or radiculopathy, cervicothoracic region; M47.816 Spondylosis without myelopathy or radiculopathy, lumbar region; M47.817 Spondylosis without myelopathy or radiculopathy, lumbosacral region; J44.9 Chronic obstructive pulmonary disease, unspecified; I12.9 Hypertensive chronic kidney disease with stage 1 through stage 4 chronic kidney disease, or unspecified chronic kidney disease; E11.9 Type 2 diabetes mellitus without complications; N18.9 Chronic kidney disease, unspecified; F32.9 Major depressive disorder, single episode, unspecified; I25.2 Old myocardial infarction; Z91.013 Allergy to seafood; Z91.030 Bee allergy status; Z91.040 Latex allergy status; Z88.8 Allergy status to other drugs, medicaments and biological substances; Z79.01 Long term (current) use of anticoagulants; Z79.84 Long term (current) use of oral hypoglycemic drugs; Z79.891 Long term (current) use of opiate analgesic; Z79.899 Other long term (current) drug therapy

== ENCOUNTER → 2017-07-29 | Outpatient (REF) | payer MEDICARE, OTHER | LOC: M LABNEURO 09:20 | PROVIDERS: ATTEND Family Medicine | DX: E11.622 Type 2 diabetes mellitus with other skin ulcer (principal); I10 Essential (primary) hypertension ==

== ENCOUNTER → 2017-08-05 | Outpatient (CLI) | payer MEDICARE, OTHER | LOC: M WUC 10:51 | PROVIDERS: ATTEND Physician Assistant Medical | DX: G40.909 Epilepsy, unspecified, not intractable, without status epilepticus (principal) ==

== ENCOUNTER 2018-03-26 11:12 | Emergency (ER) | payer MEDICARE, OTHER | END 2018-03-26 11:53 | disposition home or self-care (01) | LOC: M ED 11:12 | DX: M77.8 Other enthesopathies, not elsewhere classified (principal); M25.531 Pain in right wrist; I50.9 Heart failure, unspecified; I13.0 Hypertensive heart and chronic kidney disease with heart failure and stage 1 through stage 4 chronic kidney disease, or unspecified chronic kidney disease; N18.3 Chronic kidney disease, stage 3 (moderate); E11.22 Type 2 diabetes mellitus with diabetic chronic kidney disease; R56.9 Unspecified convulsions; K74.60 Unspecified cirrhosis of liver; F41.9 Anxiety disorder, unspecified; F32.9 Major depressive disorder, single episode, unspecified; Z87.442 Personal history of urinary calculi; Z79.899 Other long term (current) drug therapy; Z79.01 Long term (current) use of anticoagulants; Z79.82 Long term (current) use of aspirin; Z91.041 Radiographic dye allergy status; Z88.1 Allergy status to other antibiotic agents; Z88.8 Allergy status to other drugs, medicaments and biological substances; Z91.040 Latex allergy status; Z91.013 Allergy to seafood | CPT/HCPCS: 99282 ==

== ENCOUNTER → 2018-04-05 | Outpatient (CLI) | payer MEDICARE, OTHER ==
[2018-04-05 17:34] LABS: ANION GAP 16 MEQ/L (8-16); BLOOD UREA NITROGEN 51 MG/DL (7-18); CALCIUM LEVEL 8.8 MG/DL (8.8-10.2); CARBON DIOXIDE LEVEL 26 MEQ/L (21-32); CHLORIDE LEVEL 100 MEQ/L (98-107); CREATININE FOR GFR 1.42 MG/DL (0.55-1.30); GLOMERULAR FILTRATION RATE 38.7 (>39); GLUCOSE, FASTING 174 MG/DL (70-100); POTASSIUM SERUM 3.4 MEQ/L (3.5-5.1); SODIUM LEVEL 142 MEQ/L (136-145)
== END ==
LOC: M LAB 15:01
DX: Z01.812 Encounter for preprocedural laboratory examination (principal); E11.9 Type 2 diabetes mellitus without complications; D64.9 Anemia, unspecified

== ENCOUNTER → 2018-04-05 | Outpatient (CLI) | payer MEDICARE, OTHER | LOC: M LAB 15:08 | DX: R56.9 Unspecified convulsions (principal); Z51.81 Encounter for therapeutic drug level monitoring; Z79.899 Other long term (current) drug therapy ==

== ENCOUNTER → 2018-04-18 | Outpatient (CLI) | payer MEDICARE, OTHER | LOC: M PAIN 15:00 | DX: M51.16 Intervertebral disc disorders with radiculopathy, lumbar region (principal); M47.812 Spondylosis without myelopathy or radiculopathy, cervical region; M47.813 Spondylosis without myelopathy or radiculopathy, cervicothoracic region; M47.816 Spondylosis without myelopathy or radiculopathy, lumbar region; M47.817 Spondylosis without myelopathy or radiculopathy, lumbosacral region; G89.29 Other chronic pain; E11.9 Type 2 diabetes mellitus without complications; J44.9 Chronic obstructive pulmonary disease, unspecified; G47.30 Sleep apnea, unspecified; I13.0 Hypertensive heart and chronic kidney disease with heart failure and stage 1 through stage 4 chronic kidney disease, or unspecified chronic kidney disease; I50.9 Heart failure, unspecified; N18.3 Chronic kidney disease, stage 3 (moderate); K74.60 Unspecified cirrhosis of liver; M06.9 Rheumatoid arthritis, unspecified; M19.90 Unspecified osteoarthritis, unspecified site; I95.1 Orthostatic hypotension; F32.9 Major depressive disorder, single episode, unspecified; Z79.01 Long term (current) use of anticoagulants; Z79.84 Long term (current) use of oral hypoglycemic drugs; Z79.82 Long term (current) use of aspirin; Z79.899 Other long term (current) drug therapy; Z88.8 Allergy status to other drugs, medicaments and biological substances; Z91.013 Allergy to seafood; Z91.030 Bee allergy status; Z91.040 Latex allergy status; Z85.3 Personal history of malignant neoplasm of breast; Z86.79 Personal history of other diseases of the circulatory system; Z91.81 History of falling | CPT/HCPCS: G0463 ==

== ENCOUNTER → 2018-04-21 | Outpatient (CLI) | payer MEDICARE, OTHER ==
[2018-04-21 10:48] LABS: ANION GAP 10 MEQ/L (8-16); BLOOD UREA NITROGEN 41 MG/DL (7-18); CALCIUM LEVEL 9.2 MG/DL (8.8-10.2); CARBON DIOXIDE LEVEL 36 MEQ/L (21-32); CHLORIDE LEVEL 98 MEQ/L (98-107); CREATININE FOR GFR 1.35 MG/DL (0.55-1.30); GLUCOSE, FASTING 98 MG/DL (70-100); POTASSIUM SERUM 3.3 MEQ/L (3.5-5.1); SODIUM LEVEL 144 MEQ/L (136-145)
== END ==
LOC: M LAB 09:38
DX: I50.32 Chronic diastolic (congestive) heart failure (principal)
CPT/HCPCS: 80048

== ENCOUNTER → 2018-04-27 | Outpatient (CLI) | payer MEDICARE, OTHER ==
[2018-04-27 11:49] LABS: BASO % 0.3 % (0.0-1.0); EOS # 0.6 10^3/uL (0.0-0.50); EOS % 7.6 % (0.0-3.0); HEMATOCRIT 36.2 % (36.0-47.0); HEMOGLOBIN 12.2 g/dl (12.0-15.5); IMMATURE GRANULOCYTE % 0.3 % (0-3.0); LYMPH # 1.3 10^3/uL (1.5-4.5); LYMPH % 18.1 % (24.0-44.0); MEAN CORPUSCULAR HEMOGLOBIN 29.2 pg (27.0-33.0); MEAN CORPUSCULAR HGB CONC 33.7 g/dl (32.0-36.5); MEAN CORPUSCULAR VOLUME 86.6 fl (80.0-96.0); MONO # 0.6 10^3/uL (0.0-0.8); MONO % 7.9 % (0.0-5.0); NEUTROPHILS # 4.7 10^3/uL (1.8-7.7); NEUTROPHILS % 65.8 % (36.0-66.0); PLATELET COUNT, AUTOMATED 184 10^3/uL (150-450); RED BLOOD COUNT 4.18 10^6/uL (4.00-5.40); RED CELL DISTRIBUTION WIDTH 14.8 % (11.5-14.5); WHITE BLOOD COUNT 7.2 10^3/uL (4.0-10.0)
[2018-04-27 12:30] LABS: ANION GAP 9 MEQ/L (8-16); BLOOD UREA NITROGEN 31 MG/DL (7-18); CARBON DIOXIDE LEVEL 33 MEQ/L (21-32); CHLORIDE LEVEL 101 MEQ/L (98-107); CREATININE FOR GFR 1.27 MG/DL (0.55-1.30); GLUCOSE, FASTING 108 MG/DL (70-100); POTASSIUM SERUM 3.3 MEQ/L (3.5-5.1); SODIUM LEVEL 143 MEQ/L (136-145)
== END ==
LOC: M LAB 11:03
DX: G56.02 Carpal tunnel syndrome, left upper limb (principal)
CPT/HCPCS: 80048

== ENCOUNTER → 2018-05-06 | Outpatient (CLI) | payer MEDICARE, OTHER | LOC: M PAIN 11:15 | DX: M53.3 Sacrococcygeal disorders, not elsewhere classified (principal); M51.16 Intervertebral disc disorders with radiculopathy, lumbar region; G89.29 Other chronic pain; I10 Essential (primary) hypertension; E11.9 Type 2 diabetes mellitus without complications; M06.9 Rheumatoid arthritis, unspecified; M19.90 Unspecified osteoarthritis, unspecified site; F32.9 Major depressive disorder, single episode, unspecified; J44.9 Chronic obstructive pulmonary disease, unspecified; G47.30 Sleep apnea, unspecified; Z79.01 Long term (current) use of anticoagulants; Z79.84 Long term (current) use of oral hypoglycemic drugs; Z79.82 Long term (current) use of aspirin; Z79.899 Other long term (current) drug therapy; Z88.8 Allergy status to other drugs, medicaments and biological substances; Z91.013 Allergy to seafood; Z91.030 Bee allergy status; Z91.040 Latex allergy status; Z96.659 Presence of unspecified artificial knee joint; Z86.73 Personal history of transient ischemic attack (TIA), and cerebral infarction without residual deficits; Z86.79 Personal history of other diseases of the circulatory system; Z85.3 Personal history of malignant neoplasm of breast | CPT/HCPCS: G0463 ==

== ENCOUNTER → 2018-06-24 | Outpatient (CLI) | payer MEDICARE, OTHER | LOC: M PAIN 09:45 | DX: M53.3 Sacrococcygeal disorders, not elsewhere classified (principal); M51.16 Intervertebral disc disorders with radiculopathy, lumbar region; D64.9 Anemia, unspecified; J45.909 Unspecified asthma, uncomplicated; J44.9 Chronic obstructive pulmonary disease, unspecified; G47.30 Sleep apnea, unspecified; I11.0 Hypertensive heart disease with heart failure; I50.9 Heart failure, unspecified; I25.10 Atherosclerotic heart disease of native coronary artery without angina pectoris; K74.60 Unspecified cirrhosis of liver; E11.22 Type 2 diabetes mellitus with diabetic chronic kidney disease; N18.6 End stage renal disease; M06.9 Rheumatoid arthritis, unspecified; H26.9 Unspecified cataract; M19.90 Unspecified osteoarthritis, unspecified site; F03.90 Unspecified dementia, unspecified severity, without behavioral disturbance, psychotic disturbance, mood disturbance, and anxiety; E11.40 Type 2 diabetes mellitus with diabetic neuropathy, unspecified; E11.51 Type 2 diabetes mellitus with diabetic peripheral angiopathy without gangrene; F32.9 Major depressive disorder, single episode, unspecified; Z85.3 Personal history of malignant neoplasm of breast; Z79.84 Long term (current) use of oral hypoglycemic drugs; Z79.82 Long term (current) use of aspirin; Z79.02 Long term (current) use of antithrombotics/antiplatelets; Z79.899 Other long term (current) drug therapy; Z88.1 Allergy status to other antibiotic agents; Z88.8 Allergy status to other drugs, medicaments and biological substances; Z91.013 Allergy to seafood; Z91.030 Bee allergy status; Z91.040 Latex allergy status | CPT/HCPCS: G0463 ==

== ENCOUNTER → 2018-07-18 | Outpatient (CLI) | payer MEDICARE, OTHER ==
[2018-07-18 14:38] LABS: ANION GAP 9 MEQ/L (8-16); BLOOD UREA NITROGEN 24 MG/DL (7-18); CALCIUM LEVEL 9.1 MG/DL (8.8-10.2); CARBON DIOXIDE LEVEL 29 MEQ/L (21-32); CHLORIDE LEVEL 103 MEQ/L (98-107); CREATININE FOR GFR 1.01 MG/DL (0.55-1.30); GLOMERULAR FILTRATION RATE 57.4 (>39); GLUCOSE, FASTING 86 MG/DL (70-100); POTASSIUM SERUM 3.8 MEQ/L (3.5-5.1); SODIUM LEVEL 141 MEQ/L (136-145)
== END ==
LOC: M LAB 13:33
DX: I50.32 Chronic diastolic (congestive) heart failure (principal)
CPT/HCPCS: 80048

== ENCOUNTER → 2019-03-01 | Outpatient (CLI) | payer MEDICARE, OTHER ==
[~2019-03-01] MED LIST changes: -/DULO30CA OR; -/ROPI5TA OR; +ACET-716 PO; -ACET30TAB PO; -AMLO5TAB2 PO; +AMLO5TAB6 PO; -ANAS1TAB PO; +ANAS1TAB2 PO; -ASCO25TA PO; -BUME1TA PO; +BUME1TAB3 PO; +CYMB1CAP5 OR; -DRIS50002 PO; +DRIS50003 PO; +EFFE75CA2 PO; -EFFE75CA75 PO; -GABA-283 PO; +GABA-845 PO; -LASI40TA PO; +LASI40TA9 PO; +METO25TA; +MILK120011 PO; -MILKSUS PO; +OMEP20CA3; -PANT40TA2 PO; +PANT40TA3 PO; +PERC10TA26 PO; +REQU1TAB15 OR; -ROPI3TAB PO; +ROPI3TAB3 PO; -ROPI4TAB PO; +ROPI4TAB3 PO; +SPIR-10 PO; -SPIR25TA2 PO; +VITA1TAB23 PO
--- NOTE | 2019-03-21 01:27 | ECWPNPC ---
PATIENT NAME: MAGI MCKEON : 1945 GENDER: FEMALE VISIT DATE: 03/01/2019 DISCHARGE DATE: 03/01/19 1159 VISIT LOCKED DATE TIME: PHYSICIAN: ADRIAN HEMPHILL RESOURCE: ADRIAN HEMPHILL REASON FOR APPOINTMENT 1. BACK PAIN HISTORY OF PRESENT ILLNESS HISTORY OF PRESENT ILLNESS: HERE FOR F/U OF CHRONIC GENERALIZED JOINT PAIN.PAIN HAS ESCALATED OVER THE PAST 2 MONTHS.HX OF MULTIPLE COMORBIDITIES WITH RECENT MINI STROKE AND PACEMAKER PLACEMENT 10/2018.RATING PAIN VAS 7/10. PAIN THE PATIENT DESCRIBES THE PAIN... FALL RISK SCREENING: SCREENING :NO FALLS REPORTED IN THE LAST YEAR CURRENT MEDICATIONS TAKING BUMETANIDE 1 MG TABLET 2 TABLET ORALLY DAILY TAKING VITAMIN D (ERGOCALCIFEROL) 50740 UNIT CAPSULE 1 CAPSULE ORALLY WEEKLY TAKING ROPINIROLE HCL 4 MG TABLET 1 TABLET ORALLY TWICE DAILY TAKING METFORMIN HCL ER 500 MG TABLET EXTENDED RELEASE 24 HOUR 2 TAB ORALLY ONCE A DAY TAKING MAGNESIUM 300 MG CAPSULE 1 CAPSULE WITH A MEAL ORALLY TWICE A DAY TAKING ATORVASTATIN CALCIUM 80 MG TABLET 1 TABLET ORALLY ONCE A DAY TAKING PROVENTIL HFA 108 (90 BASE) MCG/ACT AEROSOL SOLUTION 2 PUFFS NEEDED INHALATION EVERY 4 HRS TAKING NITROLINGUAL 0.4 MG/DOSE 1 TRANSLINGUAL DIRECTED TAKING POTASSIUM CHLORIDE CR 10MEQ 2 CAP ORALLY THREE TIMES DAILY TAKING AMLODIPINE BESYLATE 5 MG TABLET 1 1/2 TAB ORALLY DAILY TAKING VITAMIN D3 1000 UNIT CAPSULE ORALLY DAILY TAKING PLAVIX 75 MG TABLET ORALLY DAILY TAKING ANASTROZOLE 1 MG TABLET 1 TABLET ORALLY ONCE A DAY TAKING ASPIR-81 81 MG TABLET DELAYED RELEASE 1 TABLET ORALLY ONCE A DAY TAKING LEVETIRACETAM ER 500 MG TABLET EXTENDED RELEASE 24 HOUR 1 TAB ORALLY TWICE DAILY TAKING MAY USE - - METROLAZOLE 2.5MG DAILY TAKING VITAMIN C PLUS 1000 MG TABLET ORALLY TAKING VITAMIN B-12 1000 MCG TABLET 1 TABLET ORALLY ONCE A DAY TAKING MAY HAVE IRON INFUSIONS INTRAVENOUSLY NEEDED, NOTES: LAST ON February TAKING OXYCODONE HCL 5 MG TABLET 1 TO 2 TABLET NEEDED ORALLY FOR PAIN EVERY 6 HRS MDD3 NOT-TAKING OXYCODONE HCL 5 MG TABLET 1 TAB ORALLY MDD3 EVERY 4 HOURS NEEDED FOR PAIN NOT-TAKING GABAPENTIN 100 MG CAPSULE 3-4 TABS ORALLY BEFORE BEDTIME, NOTES: 1 AT BEDTIME / WEANING OFF NOT-TAKING BISOPROLOL FUMARATE 5 MG TABLET 0.5 ORALLY ONCE A DAY NOT-TAKING SPIRONOLACTONE 25 MG TABLET 1 TABLET ORALLY ONCE A DAY NOT-TAKING VENLAFAXINE HCL ER 150 MG TABLET EXTENDED RELEASE 24 HOUR 1 TABLET WITH FOOD ORALLY ONCE A DAY NOT-TAKING PANTOPRAZOLE SODIUM 40 MG TABLET DELAYED RELEASE 1 CAP ORALLY BID NOT-TAKING GABAPENTIN 300 MG CAPSULE 1 CAPSULE ORALLY FOR PAIN THREE TIMES A DAY MDD3 DISCONTINUED VITAMIN D 1000 UNIT TABLET 1 TABLET ORALLY ONCE A DAY MEDICATION LIST REVIEWED AND RECONCILED WITH THE PATIENT PAST MEDICAL HISTORY CATARACTS BILATERAL ANEMIA SWELLING IN THE LEGS ASTHMA COPD SLEEP APNEA ANGINA CHF CAD HTN CIRRHOSIS BOWEL PROBLEMS TYPE 2 DIABETES END STAGE RENAL DISEASE 30% FUNCTIONING RA OSTEOARTHRITIS DEMENTIA SHORT TERM MEMORY ISSUES NEUROPATHY PVD DEPRESSION SKIN CANCER BREAST CANCER SUSPECTED TIA'S ORTHOSTATIC HYPOTENSION ALLERGIES CIPRO: CONFUSION SOFI INHIBITOR (FOR ALLERGIES USE ONLY): COUGH WELLBUTRIN SR: WEIGHT GAIN SHELLFISH: ANAPHYLAXIS BEE STINGS: SWELLING LATEX: RASH SULFA (FOR ALLERGY USE ONLY): HIVES SURGICAL HISTORY CHOLECYSTECTOMY 1966 TUMOR ON LEG REMOVED 1982 KNEE REPLACEMENT 2007 KNEE REPLACEMENT 2010 COLON RESECTION 2006 HERNIA 2016 CARPAL BELLA LEFT 2018 PACEMAKER 11/2018 FAMILY HISTORY MOTHER: DIAGNOSED WITH DIABETES, HYPERTENSION, STROKE DAUGHTER(S): STROKE MATERNAL GRAND FATHER: STROKE 3 SON(S) , 2 DAUGHTER(S) . SOCIAL HISTORY GENERAL: TOBACCO USE ARE YOU A: NONSMOKER. OTHERS AT HOME: SPOUSE. HOUSING: LIVES IN [place] IN WINTER AND HAS PAIN CLINIC IN [place] TOO. DIET: LOW CARB. LANGUAGE LANGUAGES SPOKEN:BELIZEAN NEW PATIENT PAIN DIARY TODAY'S VISIT NOTES, FROM 0-10, WHAT LEVEL IS YOUR PAIN TODAY? 0. EXERCISE: WAS SWIMMING DAILY BEFORE HOSPITALIZATION. LEARNING BARRIERS / SPECIAL NEEDS ORIENTED TO PLAN OF CARE: PATIENT, PAIN MANAGEMENT PATIENT, ORIENTED TO PLAN OF CARE: PATIENT, PAIN MANAGEMENT PATIENT. PAIN CLINIC PFS, CLERGY, PUBLIC HEALTH REFERRALS HAS THE PATIENT BEEN EDUCATED REGARDING HIS/HER PLAN OF CARE?YES HAS THE PATIENT BEEN EDUCATED REGARDING PAIN, THE RISK FOR PAIN, THE IMPORTANCE OF EFFECTIVE PAIN MANAGEMENT, AND THE PAIN ASSESSMENT PROCESS?YES CAFFEINE CAFFEINE USE?NO ADVANCE DIRECTIVE ADVANCE DIRECTIVE DISCUSSED WITH PATIENT:YES DECLINED GNOSTICIST [id number] ORTHODOXY NO CHRISTIANITY BELIEFS THAT WOULD IMPACT HEALTH CARE. MARITAL STATUS: . ALCOHOL SCREENING DID YOU HAVE A DRINK CONTAINING ALCOHOL IN THE PAST YEAR?YES HOW OFTEN DID YOU HAVE A DRINK CONTAINING ALCOHOL IN THE PAST YEAR?MONTHLY OR LESS (1 POINT) HOW MANY DRINKS DID YOU HAVE ON A TYPICAL DAY WHEN YOU WERE DRINKING IN THE PAST YEAR?1 OR 2 (0 POINTS) HOW OFTEN DID YOU HAVE SIX OR MORE DRINKS ON ONE OCCASION IN THE PAST YEAR?NEVER (0 POINTS) POINTS1 INTERPRETATIONNEGATIVE HOSPITALIZATION/MAJOR DIAGNOSTIC PROCEDURE SUSPECTED TIA 01/2017 FALL/UTI 02/2017 REVIEW OF SYSTEMS REVIEWED BY: PROVIDER: ADRIAN HICKS . CONSTITUTIONAL: ANY CHANGE IN YOUR MEDICAL CONDITION? NO . CHILLS NO . FEVER NO . INFECTION: DO YOU HAVE NEW INFECTIONS? NO . DO YOU HAVE HISTORY OF MRSA? NO . MUSCULOSKELETAL: ANY NEW PATTERNS OF PAIN OR NUMBNESS? YES, FEET ARE NUMB, WILL GO TO [employer] DEMONSTRATOR . GASTROENTEROLOGY: ANY NEW CHANGE IN BOWEL CONTROL? NO . GENITOURINARY: ANY NEW CHANGE IN BLADDER CONTROL? YES, STRESS INCONTINENCE . IS THERE A CHANCE YOU COULD BE ? NO . HEMATOLOGY/LYMPH: DO YOU TAKE ANY BLOOD THINNERS? (FOR EXAMPLE- COUMADIN, PLAVIX, AGGRENOX, PLATEL, PRADAXA, OR XARELTO) YES, PLAVIX . WHEN WAS YOUR LAST DOSE? DATE: TIME: . NEUROLOGY: HAVE YOU FALLEN IN THE PAST 12 MONTHS? NO . ANY NEW EXTREMITY NUMBNESS OR WEAKNESS? NO . CARDIOLOGY: DO YOU HAVE A PACEMAKER OR DEFIBRILLATOR? YES, PACEMAKER . STROKE MINI STROKE-NOVEMBER 14 2018 . RESPIRATORY: HAVE YOU BEEN SICK IN THE PAST WEEK? NO . FEVER NO . FLU LIKE SYMPTOMS? NO . COUGH NO . INTEGUMENTARY: DO YOU HAVE ANY RASHES OR OPEN SORES? NO . ALLERGIC/IMMUNO: ARE YOU ALLERGIC TO IV DYE? NO . ANY NEW ALLERGIES? YES, SULFA . PSYCHIATRIC: DO YOU HAVE THOUGHTS OF HURTING YOURSELF OR SOMEONE ELSE? NO . ARE YOU ABUSED, NEGLECTED, OR IN AN UNSAFE ENVIRONMENT? NO . ENDOCRINOLOGY: ARE YOU DIABETIC? YES . OTHER: DO YOU NEED ANY PRESCRIPTIONS? YES, OXYCODONE . IF YES, PLEASE LIST: ____ . ANY NEW PROBLEMS WITH YOUR MEDICATIONS? NO . WHEN DID YOU LAST EAT? ____ . WHEN DID YOU LAST DRINK? ____ . WHAT DID YOU LAST DRINK? ____ . NAME OF PERSON DRIVING YOU HOME? ____ . DO YOU HAVE ANY OTHER QUESTIONS OR CONCERNS NO . VITAL SIGNS WT 208.4 LBS, HT 60", BMI 40.70 INDEX, BP 152/80 MM HG, HR 90 /MIN, RR 16 /MIN, TEMP 98.3 F, OXYGEN SAT % 98, NA INITIALS MP 1103, REVIEWED BY: EM. EXAMINATION GENERAL EXAMINATION: GENERAL APPEARANCE:ALERT,NO ACUTE DISTRESS. PSYCHAFFECT NORMAL. LUNGS:LUNG JAIMES ARE CLEAR TO AUSCULTATION BILATERALLY. GOOD MOVEMENT OF AIR. HEART:S1, S2 IN A REGULAR RATE AND RHYTHM. NO SIGNIFICANT MURMURS, RUBS OR GALLOPS NOTED. MUSCULOSKELETAL:MUSCLE STRENGTH TESTING 5/5 BILATERAL LOWER EXTREMITIES , PALPATION: POSITIVE FOR PAIN OVER L/S SPINE. POSITIVE FOR PAIN OVER L/S PARSPINALS. ASSESSMENTS SACROILIAC JOINT PAIN - M53.3 (PRIMARY) INTERVERTEBRAL DISC DISORDER WITH RADICULOPATHY OF LUMBAR REGION - M51.16 TREATMENT SACROILIAC JOINT PAIN REFILL OXYCODONE HCL TABLET, 5 MG, 1 TO 2 TABLET NEEDED, ORALLY FOR PAIN, EVERY 6 HRS MDD3, 30 DAY(S), 75, REFILLS 0 NOTES: ISTOP REGISTRY REVIEWED AND DEMONSTRATES COMPLLIANCE. (REF # ) BRINGS IN MEDICATIONS WHICH IS APPROPRIATE FOR WHAT WAS DISPENSED. RECENT URINE TOXICOLOGY REVIEWED. NO UNAUTHORIZED MEDICATIONS. NO ILLICIT SUBSTANCES AND PRESCRIBED MEDICATIONS WERE PRESENT. URINE TOX TODAY, RISKS AND BENEFITS OF NARCOTIC/OPIOD MEDICATIONS WERE REVIEWED WITH PATIENT - THIS INCLUDES BUT IS NOT LIMITED TO RISK OF DEPENDANCE/DEVELOPMENT OF ADDICTION, MOOD DISTURBANCE AND DEPRESSION, OSTEOPOROSIS, HORMONAL AND LABIDAL CHANGES, RESPIRATORY DEPRESSION AND . PATIENT IS ADVISED NOT TO DRIVE OR DRINK ALCOHOL WHILE ON THESE MEDICATIONS. PROCEDURE CODES FA211 ESTABILISHED PATIENT [facility] CHARGE DISPOSITION & COMMUNICATION FOLLOW UP 2 MONTHS ELECTRONICALLY SIGNED BY FABIOLA RIOC ON 03/20/2019 AT 08:36 AM EDT DISCLAIMER : THIS IS A VISIT SUMMARY EXTRACTED FROM THE [employer] CHART. IT IS NOT A COPY OF THE [employer] PROGRESS NOTE. EDY
== END ==
LOC: M PAIN 11:00
PROVIDERS: ATTEND Nurse Practitioner Family
DX: M53.3 Sacrococcygeal disorders, not elsewhere classified (principal); M51.16 Intervertebral disc disorders with radiculopathy, lumbar region; G89.29 Other chronic pain; I10 Essential (primary) hypertension; E11.22 Type 2 diabetes mellitus with diabetic chronic kidney disease; J44.9 Chronic obstructive pulmonary disease, unspecified; N18.6 End stage renal disease; M06.9 Rheumatoid arthritis, unspecified; M19.90 Unspecified osteoarthritis, unspecified site; G47.30 Sleep apnea, unspecified; E66.01 Morbid (severe) obesity due to excess calories; Z68.41 Body mass index [BMI] 40.0-44.9, adult; Z79.01 Long term (current) use of anticoagulants; Z79.84 Long term (current) use of oral hypoglycemic drugs; Z79.82 Long term (current) use of aspirin; Z79.899 Other long term (current) drug therapy; Z88.2 Allergy status to sulfonamides; Z88.8 Allergy status to other drugs, medicaments and biological substances; Z91.013 Allergy to seafood; Z91.030 Bee allergy status; Z91.040 Latex allergy status; Z96.659 Presence of unspecified artificial knee joint; Z95.0 Presence of cardiac pacemaker; Z85.3 Personal history of malignant neoplasm of breast; Z86.79 Personal history of other diseases of the circulatory system

== ENCOUNTER → 2019-04-25 | Outpatient (CLI) | payer MEDICARE, OTHER ==
[~2019-04-25] MED LIST changes: +B-122500 PO; +CYAN100049 PO; +CYAN500T8 PO; +D-101000 PO; +LEVE500T88; +MAGN250T7 PO; +METO25TA PO; +OMEP-218; -OMEP20CA3; +OMEP20CA4; +ONDA4TAB6 PO; +OXYC10TA12; +POTA20TA6; +SIME180C PO; -VITA10002 PO; +VITA500045; +VITA500T PO; -VITA500T3 PO
--- NOTE | 2019-05-09 02:02 | ECWPNPC ---
PATIENT NAME: MAGI MCKEON : 1945 GENDER: FEMALE VISIT DATE: 04/25/2019 DISCHARGE DATE: 04/25/19 1231 VISIT LOCKED DATE TIME: PHYSICIAN: ADRIAN HEMPHILL RESOURCE: ADRIAN HEMPHILL REASON FOR APPOINTMENT 1. BACK PAIN HISTORY OF PRESENT ILLNESS HISTORY OF PRESENT ILLNESS: HERE FOR F/U OF CHRONIC GENERALIZED JOINT PAIN.PAIN HAS ESCALATED OVER THE PAST 2 MONTHS.HX OF MULTIPLE COMORBIDITIES WITH RECENT MINI STROKE AND PACEMAKER PLACEMENT 10/2018.RATING PAIN VAS 7/10. PAIN THE PATIENT DESCRIBES THE PAIN... THE PATIENT DESCRIBES THE PAIN... PAIN THE PATIENT DESCRIBES THE PAIN... THE PATIENT DESCRIBES THE PAIN... FALL RISK SCREENING: SCREENING :NO FALLS REPORTED IN THE LAST YEAR CURRENT MEDICATIONS TAKING BUMETANIDE 1 MG TABLET 2 TABLET ORALLY DAILY TAKING VITAMIN D (ERGOCALCIFEROL) 93034 UNIT CAPSULE 1 CAPSULE ORALLY WEEKLY TAKING ROPINIROLE HCL 4 MG TABLET 1 TABLET ORALLY TWICE DAILY TAKING METFORMIN HCL ER 500 MG TABLET EXTENDED RELEASE 24 HOUR 2 TAB ORALLY ONCE A DAY TAKING MAGNESIUM 300 MG CAPSULE 1 CAPSULE WITH A MEAL ORALLY TWICE A DAY TAKING ATORVASTATIN CALCIUM 80 MG TABLET 1 TABLET ORALLY ONCE A DAY TAKING PROVENTIL HFA 108 (90 BASE) MCG/ACT AEROSOL SOLUTION 2 PUFFS NEEDED INHALATION EVERY 4 HRS TAKING NITROLINGUAL 0.4 MG/DOSE 1 TRANSLINGUAL DIRECTED TAKING POTASSIUM CHLORIDE CR 10MEQ 2 CAP ORALLY THREE TIMES DAILY TAKING AMLODIPINE BESYLATE 5 MG TABLET 2 TABS ORALLY DAILY TAKING VITAMIN D3 1000 UNIT CAPSULE ORALLY DAILY TAKING PLAVIX 75 MG TABLET ORALLY DAILY TAKING ANASTROZOLE 1 MG TABLET 1 TABLET ORALLY ONCE A DAY TAKING ASPIR-81 81 MG TABLET DELAYED RELEASE 1 TABLET ORALLY ONCE A DAY TAKING LEVETIRACETAM ER 500 MG TABLET EXTENDED RELEASE 24 HOUR 1 TAB ORALLY TWICE DAILY TAKING MAY USE - - METROLAZOLE 2.5MG DAILY TAKING VITAMIN C PLUS 1000 MG TABLET ORALLY TAKING VITAMIN B-12 1000 MCG TABLET 1 TABLET ORALLY ONCE A DAY TAKING MAY HAVE IRON INFUSIONS INTRAVENOUSLY NEEDED, NOTES: LAST ON February TAKING OXYCODONE HCL 5 MG TABLET 1 TO 2 TABLET NEEDED ORALLY FOR PAIN EVERY 6 HRS MDD3 TAKING BISOPROLOL FUMARATE 5 MG TABLET 0.5 ORALLY ONCE A DAY TAKING SPIRONOLACTONE 25 MG TABLET 1 TABLET ORALLY ONCE A DAY TAKING VENLAFAXINE HCL ER 150 MG TABLET EXTENDED RELEASE 24 HOUR 1 TABLET WITH FOOD ORALLY ONCE A DAY TAKING PANTOPRAZOLE SODIUM 40 MG TABLET DELAYED RELEASE 1 CAP ORALLY BID NOT-TAKING GABAPENTIN 100 MG CAPSULE 3-4 TABS ORALLY BEFORE BEDTIME DISCONTINUED OXYCODONE HCL 5 MG TABLET 1 TAB ORALLY MDD3 EVERY 4 HOURS NEEDED FOR PAIN DISCONTINUED GABAPENTIN 300 MG CAPSULE 1 CAPSULE ORALLY FOR PAIN THREE TIMES A DAY MDD3 MEDICATION LIST REVIEWED AND RECONCILED WITH THE PATIENT PAST MEDICAL HISTORY CATARACTS BILATERAL ANEMIA SWELLING IN THE LEGS ASTHMA COPD SLEEP APNEA ANGINA CHF CAD HTN CIRRHOSIS BOWEL PROBLEMS TYPE 2 DIABETES END STAGE RENAL DISEASE 30% FUNCTIONING RA OSTEOARTHRITIS DEMENTIA SHORT TERM MEMORY ISSUES NEUROPATHY PVD DEPRESSION SKIN CANCER BREAST CANCER SUSPECTED TIA'S ORTHOSTATIC HYPOTENSION TORN ROTATOR CUFF RIGHT ARTHRITIS IN LEFT SHOULDER PACEMAKER- 11/2018 ALLERGIES CIPRO: CONFUSION SOFI INHIBITOR (FOR ALLERGIES USE ONLY): COUGH WELLBUTRIN SR: WEIGHT GAIN SHELLFISH: ANAPHYLAXIS BEE STINGS: SWELLING LATEX: RASH SULFA (FOR ALLERGY USE ONLY): HIVES SURGICAL HISTORY CHOLECYSTECTOMY 1966 TUMOR ON LEG REMOVED 1982 KNEE REPLACEMENT 2007 KNEE REPLACEMENT 2010 COLON RESECTION 2006 HERNIA 2016 CARPAL BELLA LEFT 2018 PACEMAKER 11/2018 FAMILY HISTORY MOTHER: DIAGNOSED WITH DIABETES, HYPERTENSION, STROKE DAUGHTER(S): STROKE MATERNAL GRAND FATHER: STROKE 3 SON(S) , 2 DAUGHTER(S) . SOCIAL HISTORY GENERAL: TOBACCO USE ARE YOU A: NONSMOKER. OTHERS AT HOME: SPOUSE. HOUSING: LIVES IN [place] IN WINTER AND HAS PAIN CLINIC IN [place] TOO. DIET: LOW CARB. LANGUAGE LANGUAGES SPOKEN:PORTUGUESE NEW PATIENT PAIN DIARY TODAY'S VISIT NOTES, FROM 0-10, WHAT LEVEL IS YOUR PAIN TODAY? 0. EXERCISE: WAS SWIMMING DAILY BEFORE HOSPITALIZATION. LEARNING BARRIERS / SPECIAL NEEDS ORIENTED TO PLAN OF CARE: PATIENT, PAIN MANAGEMENT PATIENT, ORIENTED TO PLAN OF CARE: PATIENT, PAIN MANAGEMENT PATIENT. PAIN CLINIC PFS, CLERGY, PUBLIC HEALTH REFERRALS HAS THE PATIENT BEEN EDUCATED REGARDING HIS/HER PLAN OF CARE?YES HAS THE PATIENT BEEN EDUCATED REGARDING PAIN, THE RISK FOR PAIN, THE IMPORTANCE OF EFFECTIVE PAIN MANAGEMENT, AND THE PAIN ASSESSMENT PROCESS?YES CAFFEINE CAFFEINE USE?NO ADVANCE DIRECTIVE ADVANCE DIRECTIVE DISCUSSED WITH PATIENT:YES 04/25/19 DECLINED INFORMATION JACKIE ANABAPTIST [id number] SHINTO NO CONGREGATIONAL BELIEFS THAT WOULD IMPACT HEALTH CARE. MARITAL STATUS: . ALCOHOL SCREENING DID YOU HAVE A DRINK CONTAINING ALCOHOL IN THE PAST YEAR?YES HOW OFTEN DID YOU HAVE A DRINK CONTAINING ALCOHOL IN THE PAST YEAR?MONTHLY OR LESS (1 POINT) HOW MANY DRINKS DID YOU HAVE ON A TYPICAL DAY WHEN YOU WERE DRINKING IN THE PAST YEAR?1 OR 2 (0 POINTS) HOW OFTEN DID YOU HAVE SIX OR MORE DRINKS ON ONE OCCASION IN THE PAST YEAR?NEVER (0 POINTS) POINTS1 INTERPRETATIONNEGATIVE HOSPITALIZATION/MAJOR DIAGNOSTIC PROCEDURE SUSPECTED TIA 01/2017 FALL/UTI 02/2017 MINI STROKE- PACEMAKER INSERTED 11/14/18 REVIEW OF SYSTEMS REVIEWED BY: PROVIDER: ADRIAN HICKS . CONSTITUTIONAL: ANY CHANGE IN YOUR MEDICAL CONDITION? YES- RIGHT SHOULDER TORN ROTATER CUFF, ARTHRITIS IN LEFT SHOULDER . CHILLS NO . FEVER NO . INFECTION: DO YOU HAVE NEW INFECTIONS? NO . DO YOU HAVE HISTORY OF MRSA? YES- AFTER COLON RESECTION . MUSCULOSKELETAL: ANY NEW PATTERNS OF PAIN OR NUMBNESS? YES- BILATERAL HAND NUMBNESS AND TINGLING, WEAKNESS IS WORSE IN RIGHT HAND . GASTROENTEROLOGY: ANY NEW CHANGE IN BOWEL CONTROL? NO . GENITOURINARY: ANY NEW CHANGE IN BLADDER CONTROL? NO . IS THERE A CHANCE YOU COULD BE ? NO . HEMATOLOGY/LYMPH: DO YOU TAKE ANY BLOOD THINNERS? (FOR EXAMPLE- COUMADIN, PLAVIX, AGGRENOX, PLATEL, PRADAXA, OR XARELTO) YES- PLAVIX AND ASA . WHEN WAS YOUR LAST DOSE? DATE: TIME: . NEUROLOGY: HAVE YOU FALLEN IN THE PAST 12 MONTHS? YES- HAS FALLEN COUPLE TIMES, STATES NO INJURIES OTHER THAN ECCHYMOSIS . ANY NEW EXTREMITY NUMBNESS OR WEAKNESS? YES- RIGHT ARM PAIN, NUMBESS, TINGLING . CARDIOLOGY: DO YOU HAVE A PACEMAKER OR DEFIBRILLATOR? YES- PACEMAKER . RESPIRATORY: HAVE YOU BEEN SICK IN THE PAST WEEK? NO . FEVER NO . FLU LIKE SYMPTOMS? NO . COUGH NO . INTEGUMENTARY: DO YOU HAVE ANY RASHES OR OPEN SORES? NO . ALLERGIC/IMMUNO: ARE YOU ALLERGIC TO IV DYE? NO . ANY NEW ALLERGIES? NO . PSYCHIATRIC: DO YOU HAVE THOUGHTS OF HURTING YOURSELF OR SOMEONE ELSE? NO . ARE YOU ABUSED, NEGLECTED, OR IN AN UNSAFE ENVIRONMENT? NO . ENDOCRINOLOGY: ARE YOU DIABETIC? YES . OTHER: DO YOU NEED ANY PRESCRIPTIONS? YES- OXYCODONE . IF YES, PLEASE LIST: ____ . ANY NEW PROBLEMS WITH YOUR MEDICATIONS? NO . WHEN DID YOU LAST EAT? ____ . WHEN DID YOU LAST DRINK? ____ . WHAT DID YOU LAST DRINK? ____ . NAME OF PERSON DRIVING YOU HOME? ____ . DO YOU HAVE ANY OTHER QUESTIONS OR CONCERNS YES- NOT SLEEPING DUE TO PAIN IN SHOULDERS . VITAL SIGNS WT 189.4 LBS, HT 60", BMI 36.99 INDEX, BP 181/79 MM HG, REPEAT BP 130/80 MM HG, HR 82 /MIN, RR 16 /MIN, TEMP 98.3 F, OXYGEN SAT % 99%, SAFE IN ENV? (Y/N) YES, NA INITIALS DC 11:26PATIENT STATES SHE IS NOT SLEEPING WELL AND HAS CONTINUOUS PAIN IN RIGHT SHOULDER. EXAMINATION GENERAL EXAMINATION: GENERALALERT,NO ACUTE DISTRESS. PSYCHAFFECT NORMAL. LUNGS:LUNG JAIMES ARE CLEAR TO AUSCULTATION BILATERALLY. GOOD MOVEMENT OF AIR. HEART:S1, S2 IN A REGULAR RATE AND RHYTHM. NO SIGNIFICANT MURMURS, RUBS OR GALLOPS NOTED. MUSCULOSKELETAL:MUSCLE STRENGTH TESTING 5/5 BILATERAL LOWER EXTREMITIES , PALPATION: POSITIVE FOR PAIN OVER L/S SPINE. POSITIVE FOR PAIN OVER L/S PARSPINALS. ASSESSMENTS SACROILIAC JOINT PAIN - M53.3 (PRIMARY) INTERVERTEBRAL DISC DISORDER WITH RADICULOPATHY OF LUMBAR REGION - M51.16 TREATMENT SACROILIAC JOINT PAIN REFILL OXYCODONE HCL TABLET, 10 MG, 1 TO 2 TABLET NEEDED, ORALLY, Q8H PRN MDD3, 30 DAY(S), 90, REFILLS 0 NOTES: ISTOP REGISTRY REVIEWED AND DEMONSTRATES COMPLLIANCE. (REF # ) BRINGS IN MEDICATIONS WHICH IS APPROPRIATE FOR WHAT WAS DISPENSED. RECENT URINE TOXICOLOGY REVIEWED. NO UNAUTHORIZED MEDICATIONS. NO ILLICIT SUBSTANCES AND PRESCRIBED MEDICATIONS WERE PRESENT. , RISKS AND BENEFITS OF NARCOTIC/OPIOD MEDICATIONS WERE REVIEWED WITH PATIENT - THIS INCLUDES BUT IS NOT LIMITED TO RISK OF DEPENDANCE/DEVELOPMENT OF ADDICTION, MOOD DISTURBANCE AND DEPRESSION, OSTEOPOROSIS, HORMONAL AND LABIDAL CHANGES, RESPIRATORY DEPRESSION AND . PATIENT IS ADVISED NOT TO DRIVE OR DRINK ALCOHOL WHILE ON THESE MEDICATIONS. PROCEDURE CODES FA211 ESTABILISHED PATIENT [facility] CHARGE DISPOSITION & COMMUNICATION FOLLOW UP 3 MONTHS ELECTRONICALLY SIGNED BY FABIOLA RICO ON 05/08/2019 AT 08:49 AM EDT DISCLAIMER : THIS IS A VISIT SUMMARY EXTRACTED FROM THE [employer] CHART. IT IS NOT A COPY OF THE [employer] PROGRESS NOTE. EDY
== END ==
LOC: M PAIN 11:00
PROVIDERS: ATTEND Nurse Practitioner Family
DX: M53.3 Sacrococcygeal disorders, not elsewhere classified (principal); M51.16 Intervertebral disc disorders with radiculopathy, lumbar region; D64.9 Anemia, unspecified; M79.89 Other specified soft tissue disorders; J44.9 Chronic obstructive pulmonary disease, unspecified; G47.30 Sleep apnea, unspecified; I25.119 Atherosclerotic heart disease of native coronary artery with unspecified angina pectoris; I12.0 Hypertensive chronic kidney disease with stage 5 chronic kidney disease or end stage renal disease; K74.60 Unspecified cirrhosis of liver; E11.40 Type 2 diabetes mellitus with diabetic neuropathy, unspecified; N18.6 End stage renal disease; M06.9 Rheumatoid arthritis, unspecified; M19.90 Unspecified osteoarthritis, unspecified site; F03.90 Unspecified dementia, unspecified severity, without behavioral disturbance, psychotic disturbance, mood disturbance, and anxiety; E11.22 Type 2 diabetes mellitus with diabetic chronic kidney disease; H26.9 Unspecified cataract; E11.51 Type 2 diabetes mellitus with diabetic peripheral angiopathy without gangrene; F32.9 Major depressive disorder, single episode, unspecified; Z95.0 Presence of cardiac pacemaker; Z85.3 Personal history of malignant neoplasm of breast; Z79.84 Long term (current) use of oral hypoglycemic drugs; Z79.02 Long term (current) use of antithrombotics/antiplatelets; Z79.82 Long term (current) use of aspirin; Z79.891 Long term (current) use of opiate analgesic; Z79.899 Other long term (current) drug therapy; Z90.49 Acquired absence of other specified parts of digestive tract; Z88.1 Allergy status to other antibiotic agents; Z88.2 Allergy status to sulfonamides; Z88.8 Allergy status to other drugs, medicaments and biological substances; Z91.013 Allergy to seafood; Z91.030 Bee allergy status; Z91.040 Latex allergy status

== ENCOUNTER → 2019-05-01 | Outpatient (CLI) | payer MEDICARE, OTHER ==
[~2019-05-01] MED LIST changes: -B-122500 PO; -D-101000 PO; -LEVE500T88; -MAGN250T7 PO; -METO25TA PO; -OMEP-218; -ONDA4TAB6 PO; -OXYC10TA12; -POTA20TA6; -SIME180C PO; -VITA500045; -VITA500T PO
== END ==
LOC: M WUC 08:39
PROVIDERS: ATTEND Physician Assistant Medical
DX: R56.9 Unspecified convulsions (principal); Z51.81 Encounter for therapeutic drug level monitoring

== ENCOUNTER → 2019-05-01 | Outpatient (CLI) | payer MEDICARE, OTHER ==
[2019-05-01 12:32] LABS: BASO % 0.1 % (0.0-1.0); EOS # 0.1 10^3/uL (0.0-0.50); EOS % 1.3 % (0.0-3.0); HEMATOCRIT 39.5 % (36.0-47.0); HEMOGLOBIN 12.5 g/dl (12.0-15.5); LYMPH # 1.3 10^3/uL (1.5-4.5); LYMPH % 19.1 % (24.0-44.0); MEAN CORPUSCULAR HGB CONC 31.6 g/dl (32.0-36.5); MEAN CORPUSCULAR VOLUME 94.7 fl (80.0-96.0); MONO # 0.6 10^3/uL (0.0-0.8); MONO % 8.7 % (0.0-5.0); NEUTROPHILS # 4.9 10^3/uL (1.8-7.7); NEUTROPHILS % 70.5 % (36.0-66.0); PLATELET COUNT, AUTOMATED 210 10^3/uL (150-450); RED BLOOD COUNT 4.17 10^6/uL (4.00-5.40)
[2019-05-01 12:39] LABS: PERCENT SATURATION 20.1 % (13.2-45.0)
== END ==
LOC: M WUC 08:42
PROVIDERS: ATTEND Family Medicine
DX: D50.9 Iron deficiency anemia, unspecified (principal); R56.9 Unspecified convulsions; Z51.81 Encounter for therapeutic drug level monitoring

== ENCOUNTER 2019-05-09 08:02 | Emergency (ER) | payer MEDICARE, OTHER ==
[~2019-05-09] VITALS: Ht 152.4 cm; Wt 82.7 kg
[2019-05-09] MEDS ORDERED: VITA500045 (08:14)
[2019-05-09] MEDS ORDERED: OMEP-218 (08:14)
[2019-05-09] MEDS ORDERED: OXYC10TA12 (08:14)
[2019-05-09] MEDS ORDERED: POTA20TA6 (08:14)
[2019-05-09] MEDS ORDERED: LEVE500T88 (08:14)
[2019-05-09] MEDS ORDERED: D-101000 PO (08:48)
[2019-05-09] MEDS ORDERED: B-122500 PO (08:48)
[2019-05-09] MEDS ORDERED: ANAS1TAB2 PO (08:48)
[2019-05-09] MEDS ORDERED: VITA500T PO (08:48)
[2019-05-09] MEDS ORDERED: METO25TA PO (08:48)
[2019-05-09] MEDS ORDERED: MAGN250T7 PO (08:48)
[2019-05-09] MEDS ORDERED: NS 500 ML IV ONE (09:15)
[2019-05-09] MEDS ORDERED: ONDANSETRON 4MG/2ML VIAL (J2405) IV ONE (09:15)
[2019-05-09 09:35] LABS: BASO % 0.1 % (0.0-1.0); EOS # 0.2 10^3/uL (0.0-0.50); EOS % 2.2 % (0.0-3.0); HEMATOCRIT 41.3 % (36.0-47.0); HEMOGLOBIN 13.4 g/dl (12.0-15.5); LYMPH # 1.2 10^3/uL (1.5-4.5); MEAN CORPUSCULAR HEMOGLOBIN 29.8 pg (27.0-33.0); MEAN CORPUSCULAR HGB CONC 32.4 g/dl (32.0-36.5); MONO # 0.8 10^3/uL (0.0-0.8); MONO % 9.2 % (0.0-5.0); PLATELET COUNT, AUTOMATED 217 10^3/uL (150-450); RED BLOOD COUNT 4.49 10^6/uL (4.00-5.40); WHITE BLOOD COUNT 8.2 10^3/uL (4.0-10.0)
[2019-05-09 10:09] LABS: ALBUMIN 3.7 GM/DL (3.2-5.2); ALT/SGPT 22 U/L (12-78); AMYLASE 51 U/L (25-115); BILIRUBIN,DIRECT 0.2 MG/DL (0.0-0.2); BILIRUBIN,TOTAL 0.6 MG/DL (0.2-1.0); BLOOD UREA NITROGEN 24 MG/DL (7-18); CALCIUM LEVEL 9.6 MG/DL (8.8-10.2); CARBON DIOXIDE LEVEL 30 MEQ/L (21-32); CHLORIDE LEVEL 102 MEQ/L (98-107); CK-MB VALUE MASS < 1.0 NG/ML (<3.6); CPK CREATINE PHOSPHOKINASE 51 U/L (26-192); CREATININE FOR GFR 1.24 MG/DL (0.55-1.30); GLOMERULAR FILTRATION RATE 45.1 (>39); GLUCOSE, FASTING 83 MG/DL (70-100); LIPASE 89 U/L (73-393); MB/CK RELATIVE INDEX 1.96 (< OR =4); POTASSIUM SERUM 3.7 MEQ/L (3.5-5.1); SODIUM LEVEL 140 MEQ/L (136-145); TOTAL PROTEIN 8.4 GM/DL (6.4-8.2); TROPONIN I < 0.02 NG/ML (< 0.10)
[2019-05-09] MEDS: GASTROGRAFIN SOLUTION 30ML PO SCH ×2 (11:26→12:01)
[2019-05-09] MEDS ORDERED: ISOVUE-370 76% 100ML VIAL (Q9967) As Ordered ONE (13:00)
--- NOTE | 2019-05-09 13:45 | REP ---
CT of the abdomen pelvis with IV contrast, without bowel contrast: Comparison is 06/26/2015. The visualized lung zepeda are unremarkable. Small curvilinear scar is again noted in the left lower lobe. There is a cholecystectomy. This is unchanged. There is mild intrahepatic biliary duct dilatation, not unusual post cholecystectomy. The the hepatic parenchyma is otherwise unremarkable. Pancreas and spleen are unremarkable. There is a 2 cm duodenal diverticulum. This is unchanged. The adrenals are unremarkable. Kidneys are unremarkable. The abdominal aorta is unremarkable. There are metallic retainer is along the anterior abdominal wall indicating mesh placement. There is no ventral hernia. There are surgical clips compatible with bariatric surgery. This is unchanged. There is no bowel distension or obstruction. Pelvis: The uterus and adnexa are unremarkable. There is no ascites or adenopathy. The pelvic bowel loops are unremarkable. The anterior abdominal wall seroma on the prior study has resolved. Impression: Cholecystectomy. Duodenal loop diverticulum, unchanged. Bariatric surgery. Anterior abdominal wall mesh. No anterior abdominal wall hernia. No bowel distension or obstruction. No ascites, adenopathy or mass. Electronically Signed by Aayush Vasquez MD 05/09/2019 01:36 P
[2019-05-09] MEDS ORDERED: SIME180C PO (14:27)
[2019-05-09] MEDS ORDERED: ONDA4TAB6 PO (14:27)
[2019-05-09 14:35] VITALS: BP 155/65
== END 2019-05-09 14:45 | disposition home or self-care (01) ==
LOC: M ED 08:02
DX: R10.13 Epigastric pain (principal); R11.2 Nausea with vomiting, unspecified; E86.0 Dehydration; G43.909 Migraine, unspecified, not intractable, without status migrainosus; R56.9 Unspecified convulsions; I25.10 Atherosclerotic heart disease of native coronary artery without angina pectoris; I13.0 Hypertensive heart and chronic kidney disease with heart failure and stage 1 through stage 4 chronic kidney disease, or unspecified chronic kidney disease; I50.9 Heart failure, unspecified; E11.22 Type 2 diabetes mellitus with diabetic chronic kidney disease; E78.00 Pure hypercholesterolemia, unspecified; J45.909 Unspecified asthma, uncomplicated; G47.33 Obstructive sleep apnea (adult) (pediatric); K21.9 Gastro-esophageal reflux disease without esophagitis; K75.81 Nonalcoholic steatohepatitis (NASH); N18.3 Chronic kidney disease, stage 3 (moderate); K57.92 Diverticulitis of intestine, part unspecified, without perforation or abscess without bleeding; Z85.3 Personal history of malignant neoplasm of breast; M54.9 Dorsalgia, unspecified; F32.9 Major depressive disorder, single episode, unspecified; F41.9 Anxiety disorder, unspecified; Z79.899 Other long term (current) drug therapy; Z79.84 Long term (current) use of oral hypoglycemic drugs; Z79.02 Long term (current) use of antithrombotics/antiplatelets; Z79.82 Long term (current) use of aspirin; Z88.8 Allergy status to other drugs, medicaments and biological substances; Z88.2 Allergy status to sulfonamides; Z88.1 Allergy status to other antibiotic agents; Z91.040 Latex allergy status; Z91.013 Allergy to seafood
CPT/HCPCS: 36415; 74177; 80048; 80076; 81001; 82150; 82550; 82553; 83605; 83690; 84484; 85025; 87088; 87186; 96374; 99284; J2405; Q9963; Q9967

== ENCOUNTER → 2019-06-08 | Outpatient (REF) | payer MEDICARE, OTHER ==
[~2019-06-08] MED LIST changes: +B-122500 PO; +BISO5TAB14 PO; -BISO5TAB5 PO; +CVS50CAP PO; +D-101000 PO; +LEVE500T88; +MAGN250T7 PO; +MAGN500T12 PO; -MECL-68 PO; +MECL1TAB31 PO; +METO25TA PO; +OMEP-218; +OMEP-218 PO; +OMEP1CAP73; -OMEP20CA4; +ONDA4TAB6 PO; +OXYC10TA12; +POTA20TA6 PO; +SIME180C PO; +VITA1CAP25 PO; +VITA500045; +VITA500T PO
[2019-06-08 16:43] LABS: CALCIUM LEVEL 9.6 MG/DL (8.8-10.2); CREATININE FOR GFR 1.15 MG/DL (0.55-1.30); GLOMERULAR FILTRATION RATE 49.2 (>39); POTASSIUM SERUM 3.8 MEQ/L (3.5-5.1)
== END ==
LOC: M LABDRAW1 15:43
PROVIDERS: ATTEND Physician Assistant
DX: I50.32 Chronic diastolic (congestive) heart failure (principal)

== ENCOUNTER 2019-06-09 10:30 | Day surgery (SDC) | payer MEDICARE, OTHER ==
[~2019-06-09] VITALS: Ht 152.4 cm; Wt 83.0 kg
[~2019-06-09 10:30] MED LIST changes: -BISO5TAB14 PO; +BISO5TAB5 PO; +MECL-68 PO; -MECL1TAB31 PO; +NS 1,000 ML IV ONE; -OMEP1CAP73; +OMEP20CA4
[2019-06-09] MEDS ORDERED: LIDOCAINE 2% INJ 100 MG/5 ML SDV (FOR ANES.) As Ordered ONE (11:57)
[2019-06-09] MEDS ORDERED: PROPOFOL 500 MG/50 ML VIAL As Ordered ONE (11:57)
--- NOTE | 2019-06-09 12:01 | ROOR ---
Patient Name: Radha Hickey Procedure Date: 06/09/2019 11:39 AM Date of : 1945 Age: 73 Room: [facility] Gender: Female Note Status: Finalized Procedure: Upper GI endoscopy Indications: Epigastric abdominal pain, Nausea with vomiting, Weight loss Providers: Contreras Brown MD Referring MD: Rosa Lipscomb MD Requesting Provider: Medicines: Monitored Anesthesia Care Complications: No immediate complications. Procedure: Pre-Anesthesia Assessment: - The heart rate, respiratory rate, oxygen saturations, blood pressure, adequacy of pulmonary ventilation, and response to care were monitored throughout the procedure. The Endoscope was introduced through the mouth, and advanced to the second part of duodenum. The upper GI endoscopy was accomplished without difficulty. The patient tolerated the procedure well. Findings: The Z-line was regular and was found 40 cm from the incisors. A medium amount of food (residue) was found on the greater curvature of the stomach. A benign-appearing, intrinsic moderate stenosis was found in the gastric antrum. This was traversed. Evidence of a previous surgical anastomosis was found in the gastric fundus. The exam was otherwise without abnormality. Impression: - Z-line regular, 40 cm from the incisors. - A medium amount of food (residue) in the stomach. - Gastric stenosis was found in the gastric antrum. - A previous surgical anastomosis was found. - The examination was otherwise normal. - No specimens collected. - The examination was otherwise normal. Recommendation: - Patient has a contact number available for emergencies. The signs and symptoms of potential delayed complications were discussed with the patient. Return to normal activities tomorrow. Written discharge instructions were provided to the patient. - Discharge patient to home. - Continue present medications. - Do an upper GI series at appointment to be scheduled. - The findings and recommendations were discussed with the patient's family. Contreras Brown MD Contreras Brown MD 06/09/2019 12:00:49 PM Electronically signed by Contreras Brown MD Number of Addenda: 0 Note Initiated On: 06/09/2019 11:39 AM Estimated Blood Loss: Estimated blood loss: none.
[2019-06-09 12:20] VITALS: BP 150/79
== END 2019-06-09 12:32 | disposition home or self-care (01) ==
LOC: M OPP 10:30
PROVIDERS: ATTEND Internal Medicine Gastroenterology
DX: K31.89 Other diseases of stomach and duodenum (principal); Z98.0 Intestinal bypass and anastomosis status; R10.13 Epigastric pain; R63.4 Abnormal weight loss; R11.2 Nausea with vomiting, unspecified; G47.30 Sleep apnea, unspecified; E11.9 Type 2 diabetes mellitus without complications; Z79.82 Long term (current) use of aspirin; Z79.84 Long term (current) use of oral hypoglycemic drugs; Z79.899 Other long term (current) drug therapy; Z88.1 Allergy status to other antibiotic agents; Z88.8 Allergy status to other drugs, medicaments and biological substances; Z91.013 Allergy to seafood; Z91.040 Latex allergy status; Z86.79 Personal history of other diseases of the circulatory system

== ENCOUNTER → 2019-06-22 | Outpatient (CLI) | payer MEDICARE, OTHER ==
[~2019-06-22] MED LIST changes: +BISO5TAB14 PO; -BISO5TAB5 PO; +E-Z-GAS II EFFERVESCENT PACKET (SODIUM BICARB./CITRIC ACID/SIMETHICONE) As Ordered ONE; +E-Z-HD 98% w/w 340GM SUSP BTL As Ordered ONE; +E-Z-PAQUE 96% w/w SUSP 176GM BTL As Ordered ONE; -MECL-68 PO; +MECL1TAB31 PO; -NS 1,000 ML IV ONE; +OMEP1CAP73; -OMEP20CA4
--- NOTE | 2019-06-22 16:29 | REP ---
UPPER GI AIR CONTRAST AND SMALL BOWEL FOLLOW THROUGH The procedure was performed under the direct supervision of Dr. Mitchell. The images were reviewed with Dr. Mitchell The pyrotechnic assembler film shows no organomegaly or pathological masses. The intestinal gas pattern is non-specific. There are surgical clips noted in the right upper quadrant and pelvis. There are surgical florentino noted in the epigastric region consistent with the patient's history of prior bariatric surgery. There are multiple metallic retainers overlying the abdomen indicating mesh placement for hernia repair. Liquid barium was given in the erect position as well as liquid barium in the prone oblique position in order to perform a single contrast upper GI examination. Additionally liquid barium was given at the end of the examination in order to perform a small bowel follow through. During the oral and pharyngeal stages of deglutition there is laryngeal penetration. 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 Esophageal transport is prompt and efficient and there is no esophagitis, stricture, mucosal ring or hiatal hernia. There is gastroesophageal reflux demonstrated to above the level of the tina. There are postsurgical changes in the stomach consistent with the patient's history of prior bariatric surgery. There is retained ingested material in the stomach which limits evaluation, however, there may be mucosal fold thickening. There is no herb ulcer identified. The duodenal spivey are normally outlined . The mucosal folds are smooth and regular. There is no duodenitis pancreatitis peptic ulcer disease or neoplasm. The visualized portion of the proximal small bowel appears normal in course and caliber. There is a diverticulum in the descending portion of the duodenum. The barium column was followed through the small bowel to the level of the terminal ileum. Small bowel transit time is approximately of 1 hour and 15 minutes . During fluoroscopy gentle palpation shows all loops are freely movable and pliable. There are no fixed or angulated loops. The small bowel mucosal pattern is normal in course and caliber. There is no transition to suggest a partial small-bowel obstruction. Spot filming of the terminal ileum shows it to be unremarkable. Impression: 1. There is laryngeal penetration. 2. 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 3. There is gastroesophageal reflux demonstrated to above the level of the tina. 4. There are postsurgical changes in the stomach consistent with the patient's history of prior bariatric surgery. There is retained ingested material in the stomach which limits evaluation, however, there may be mucosal fold thickening. 5. There is a diverticulum in the descending portion of the duodenum. 4 minutes of fluoro time was utilized for this procedure. Reviewed by GEOVANNI Sanchez 06/22/2019 04:01 P Electronically Signed by Aayush Mitchell MD 06/22/2019 04:21 P
== END ==
LOC: M RAD 07:54
PROVIDERS: ATTEND Internal Medicine Gastroenterology
DX: R11.2 Nausea with vomiting, unspecified (principal); R13.10 Dysphagia, unspecified; R63.4 Abnormal weight loss; K21.9 Gastro-esophageal reflux disease without esophagitis; Q39.4 Esophageal web; Z98.84 Bariatric surgery status; K57.10 Diverticulosis of small intestine without perforation or abscess without bleeding

== ENCOUNTER → 2019-07-26 | Outpatient (CLI) | payer MEDICARE, OTHER ==
[~2019-07-26] MED LIST changes: -BISO5TAB14 PO; +BISO5TAB9 PO; -E-Z-GAS II EFFERVESCENT PACKET (SODIUM BICARB./CITRIC ACID/SIMETHICONE) As Ordered ONE; -E-Z-HD 98% w/w 340GM SUSP BTL As Ordered ONE; -E-Z-PAQUE 96% w/w SUSP 176GM BTL As Ordered ONE; +MECL-68 PO; -MECL1TAB31 PO; -OMEP1CAP73; +OMEP20CA4
--- NOTE | 2019-08-10 01:46 | ECWPNPC ---
PATIENT NAME: MAGI MCKEON : 1945 GENDER: FEMALE VISIT DATE: 07/26/2019 DISCHARGE DATE: 07/26/19 1124 VISIT LOCKED DATE TIME: PHYSICIAN: ADRIAN HEMPHILL RESOURCE: ADRIAN HEMPHILL REASON FOR APPOINTMENT 1. BACK PAIN HISTORY OF PRESENT ILLNESS HISTORY OF PRESENT ILLNESS: HERE FOR F/U OF CHRONIC SHOULDER ,LOW BACK AND GENERALIZED JOINT PAIN.RATING PAIN VAS 7-10/10.CURRENTLY USING OXYCODONE 10MG UP TO 3X DAY.FINDS MEDICATION SOMEWHAT HELPFUL.AIXA BE LEAVING FOR [place] IN A FEW WEEKS. PAIN THE PATIENT DESCRIBES THE PAIN... FALL RISK SCREENING: SCREENING :NO FALLS REPORTED IN THE LAST YEAR CURRENT MEDICATIONS TAKING BUMETANIDE 1 MG TABLET 2 TABLET ORALLY DAILY TAKING VITAMIN D (ERGOCALCIFEROL) 37717 UNIT CAPSULE 1 CAPSULE ORALLY WEEKLY TAKING ROPINIROLE HCL 4 MG TABLET 1 TABLET ORALLY TWICE DAILY TAKING METFORMIN HCL ER 500 MG TABLET EXTENDED RELEASE 24 HOUR 2 TAB ORALLY ONCE A DAY TAKING MAGNESIUM 300 MG CAPSULE 1 CAPSULE WITH A MEAL ORALLY THREE TIMES DAILY TAKING ATORVASTATIN CALCIUM 80 MG TABLET 1 TABLET ORALLY ONCE A DAY TAKING PROVENTIL HFA 108 (90 BASE) MCG/ACT AEROSOL SOLUTION 2 PUFFS NEEDED INHALATION EVERY 4 HRS TAKING NITROLINGUAL 0.4 MG/DOSE 1 TRANSLINGUAL DIRECTED TAKING POTASSIUM CHLORIDE CR 10MEQ 2 CAP ORALLY THREE TIMES DAILY TAKING AMLODIPINE BESYLATE 5 MG TABLET 2 TABS ORALLY DAILY TAKING VITAMIN D3 1000 UNIT CAPSULE ORALLY DAILY TAKING PLAVIX 75 MG TABLET ORALLY DAILY TAKING ANASTROZOLE 1 MG TABLET 1 TABLET ORALLY ONCE A DAY TAKING ASPIR-81 81 MG TABLET DELAYED RELEASE 1 TABLET ORALLY ONCE A DAY TAKING LEVETIRACETAM ER 500 MG TABLET EXTENDED RELEASE 24 HOUR 1 TAB ORALLY TWICE DAILY TAKING MAY USE - - METROLAZOLE 2.5MG DAILY TAKING VITAMIN C PLUS 1000 MG TABLET ORALLY TAKING VITAMIN B-12 1000 MCG TABLET 1 TABLET ORALLY ONCE A DAY TAKING MAY HAVE IRON INFUSIONS INTRAVENOUSLY NEEDED, NOTES: LAST ON February TAKING BISOPROLOL FUMARATE 5 MG TABLET 0.5 ORALLY ONCE A DAY TAKING SPIRONOLACTONE 25 MG TABLET 1 TABLET ORALLY ONCE A DAY TAKING VENLAFAXINE HCL ER 150 MG TABLET EXTENDED RELEASE 24 HOUR 1 TABLET WITH FOOD ORALLY ONCE A DAY TAKING PANTOPRAZOLE SODIUM 40 MG TABLET DELAYED RELEASE 1 CAP ORALLY BID TAKING OXYCODONE HCL 10 MG TABLET 1 TO 2 TABLET NEEDED ORALLY Q8H PRN MDD3 NOT-TAKING GABAPENTIN 100 MG CAPSULE 3-4 TABS ORALLY BEFORE BEDTIME MEDICATION LIST REVIEWED AND RECONCILED WITH THE PATIENT PAST MEDICAL HISTORY CATARACTS BILATERAL ANEMIA SWELLING IN THE LEGS ASTHMA COPD SLEEP APNEA ANGINA CHF CAD HTN CIRRHOSIS BOWEL PROBLEMS TYPE 2 DIABETES END STAGE RENAL DISEASE 30% FUNCTIONING RA OSTEOARTHRITIS DEMENTIA SHORT TERM MEMORY ISSUES NEUROPATHY PVD DEPRESSION SKIN CANCER BREAST CANCER SUSPECTED TIA'S ORTHOSTATIC HYPOTENSION TORN ROTATOR CUFF RIGHT ARTHRITIS IN LEFT SHOULDER PACEMAKER- 11/2018 ALLERGIES CIPRO: CONFUSION SOFI INHIBITOR (FOR ALLERGIES USE ONLY): COUGH WELLBUTRIN SR: WEIGHT GAIN SHELLFISH: ANAPHYLAXIS BEE STINGS: SWELLING LATEX: RASH SULFA (FOR ALLERGY USE ONLY): HIVES SURGICAL HISTORY CHOLECYSTECTOMY 1966 TUMOR ON LEG REMOVED 1982 KNEE REPLACEMENT 2007 KNEE REPLACEMENT 2010 COLON RESECTION 2006 HERNIA 2016 CARPAL BELLA LEFT 2018 PACEMAKER 11/2018 UPPER ENDOSCOPY 06/2019 FAMILY HISTORY MOTHER: DIAGNOSED WITH DIABETES, HYPERTENSION, UNSPECIFIED CEREBRAL ARTERY OCCLUSION WITH CEREBRAL INFARCTION DAUGHTER(S): UNSPECIFIED CEREBRAL ARTERY OCCLUSION WITH CEREBRAL INFARCTION MATERNAL GRAND FATHER: UNSPECIFIED CEREBRAL ARTERY OCCLUSION WITH CEREBRAL INFARCTION 3 SON(S) , 2 DAUGHTER(S) . SOCIAL HISTORY GENERAL: TOBACCO USE ARE YOU A: NONSMOKER. OTHERS AT HOME: SPOUSE. HOUSING: LIVES IN [place] IN WINTER AND HAS PAIN CLINIC IN [place] TOO. DIET: LOW CARB. LANGUAGE LANGUAGES SPOKEN:YI NEW PATIENT PAIN DIARY TODAY'S VISIT NOTES, FROM 0-10, WHAT LEVEL IS YOUR PAIN TODAY? 0. EXERCISE: WAS SWIMMING DAILY BEFORE HOSPITALIZATION. LEARNING BARRIERS / SPECIAL NEEDS ORIENTED TO PLAN OF CARE: PATIENT, PAIN MANAGEMENT PATIENT, ORIENTED TO PLAN OF CARE: PATIENT, PAIN MANAGEMENT PATIENT. PAIN CLINIC PFS, CLERGY, PUBLIC HEALTH REFERRALS HAS THE PATIENT BEEN EDUCATED REGARDING HIS/HER PLAN OF CARE?YES HAS THE PATIENT BEEN EDUCATED REGARDING PAIN, THE RISK FOR PAIN, THE IMPORTANCE OF EFFECTIVE PAIN MANAGEMENT, AND THE PAIN ASSESSMENT PROCESS?YES CAFFEINE CAFFEINE USE?NO ADVANCE DIRECTIVE ADVANCE DIRECTIVE DISCUSSED WITH PATIENT:YES 04/25/19 DECLINED INFORMATION MARIA LUISA VOODOO [id number] ROMAN CATHOLIC NO GNOSTICISM BELIEFS THAT WOULD IMPACT HEALTH CARE. MARITAL STATUS: . ALCOHOL SCREENING DID YOU HAVE A DRINK CONTAINING ALCOHOL IN THE PAST YEAR?YES HOW OFTEN DID YOU HAVE SIX OR MORE DRINKS ON ONE OCCASION IN THE PAST YEAR?NEVER (0 POINTS) HOW MANY DRINKS DID YOU HAVE ON A TYPICAL DAY WHEN YOU WERE DRINKING IN THE PAST YEAR?1 OR 2 (0 POINTS) HOW OFTEN DID YOU HAVE A DRINK CONTAINING ALCOHOL IN THE PAST YEAR?MONTHLY OR LESS (1 POINT) POINTS1 INTERPRETATIONNEGATIVE REVIEWED WITH PATIENT 07/26/19 1044 NLJ. HOSPITALIZATION/MAJOR DIAGNOSTIC PROCEDURE SUSPECTED TIA 01/2017 FALL/UTI 02/2017 MINI STROKE- PACEMAKER INSERTED 11/14/18 REVIEW OF SYSTEMS REVIEWED BY: PROVIDER: ADRIAN HICKS . CONSTITUTIONAL: ANY CHANGE IN YOUR MEDICAL CONDITION? NO . CHILLS NO . FEVER NO . INFECTION: DO YOU HAVE NEW INFECTIONS? NO . DO YOU HAVE HISTORY OF MRSA? NO . MUSCULOSKELETAL: ANY NEW PATTERNS OF PAIN OR NUMBNESS? YES- STATES THE PAIN IN HER LOWER BACK IS WORSE, WELL BILATERAL SHOULDERS, STATES SHE IS NOT SLEEPING AT NIGHT DUE TO PAIN, STATES SHE HAS NUMBNESS IN HER LEFT FOOT . GASTROENTEROLOGY: ANY NEW CHANGE IN BOWEL CONTROL? NO . GENITOURINARY: ANY NEW CHANGE IN BLADDER CONTROL? YES- STATES IT IS NOT NEW BUT SHE HAS STRESS INCONTINENCE . IS THERE A CHANCE YOU COULD BE ? NO . HEMATOLOGY/LYMPH: DO YOU TAKE ANY BLOOD THINNERS? (FOR EXAMPLE- COUMADIN, PLAVIX, AGGRENOX, PLATEL, PRADAXA, OR XARELTO) YES- PLAVIX . WHEN WAS YOUR LAST DOSE? DATE:07/26/19 TIME: 0700 . NEUROLOGY: HAVE YOU FALLEN IN THE PAST 12 MONTHS? NO . ANY NEW EXTREMITY NUMBNESS OR WEAKNESS? NO . CARDIOLOGY: DO YOU HAVE A PACEMAKER OR DEFIBRILLATOR? YES- PACEMAKER . RESPIRATORY: HAVE YOU BEEN SICK IN THE PAST WEEK? NO . FEVER NO . FLU LIKE SYMPTOMS? NO . COUGH NO . INTEGUMENTARY: DO YOU HAVE ANY RASHES OR OPEN SORES? NO . ALLERGIC/IMMUNO: ARE YOU ALLERGIC TO IV DYE? NO . ANY NEW ALLERGIES? NO . PSYCHIATRIC: DO YOU HAVE THOUGHTS OF HURTING YOURSELF OR SOMEONE ELSE? NO . ARE YOU ABUSED, NEGLECTED, OR IN AN UNSAFE ENVIRONMENT? NO . ENDOCRINOLOGY: ARE YOU DIABETIC? YES . OTHER: DO YOU NEED ANY PRESCRIPTIONS? YES . IF YES, PLEASE LIST: ____OXYCODONE . ANY NEW PROBLEMS WITH YOUR MEDICATIONS? NO . WHEN DID YOU LAST EAT? ____ . WHEN DID YOU LAST DRINK? ____ . WHAT DID YOU LAST DRINK? ____ . NAME OF PERSON DRIVING YOU HOME? ____ . DO YOU HAVE ANY OTHER QUESTIONS OR CONCERNS YES- STATES HER PAIN IS WORSE IN HER LOWER BACK AND BILATERAL SHOULDERS, STATES SHE RECEIVED HER FLU ONE WEEK AGO . VITAL SIGNS WT 188 LBS, HT 60", BMI 36.71 INDEX, BP 183/73 MM HG, HR 88 /MIN, RR 16 /MIN, TEMP 97.4 F, OXYGEN SAT % 98%, SAFE IN ENV? (Y/N) YES, NA INITIALS AW 1048, REVIEWED BY: JOSEPH THAT BP IS NOT HIGH FOR HER 07/26/19 1057 NLJ. EXAMINATION GENERAL EXAMINATION: GENERALALERT,NO ACUTE DISTRESS. PSYCHAFFECT NORMAL. LUNGS:LUNG JAIMES ARE CLEAR TO AUSCULTATION BILATERALLY. GOOD MOVEMENT OF AIR. HEART:S1, S2 IN A REGULAR RATE AND RHYTHM. NO SIGNIFICANT MURMURS, RUBS OR GALLOPS NOTED. MUSCULOSKELETAL:MUSCLE STRENGTH TESTING 5/5 BILATERAL LOWER EXTREMITIES , PALPATION: POSITIVE FOR PAIN OVER L/S SPINE. POSITIVE FOR PAIN OVER L/S PARSPINALS. ASSESSMENTS SACROILIAC JOINT PAIN - M53.3 (PRIMARY) GENERALIZED JOINT PAIN - M25.50 TREATMENT SACROILIAC JOINT PAIN REFILL OXYCODONE HCL TABLET, 10 MG, 1 TO 2 TABLET NEEDED, ORALLY, Q8H PRN MDD3, 30 DAY(S), 90, REFILLS 0 NOTES: ISTOP REGISTRY REVIEWED AND DEMONSTRATES COMPLLIANCE. (REF # ) BRINGS IN MEDICATIONS WHICH IS APPROPRIATE FOR WHAT WAS DISPENSED. RECENT URINE TOXICOLOGY REVIEWED. NO UNAUTHORIZED MEDICATIONS. NO ILLICIT SUBSTANCES AND PRESCRIBED MEDICATIONS WERE PRESENT. URINE TOX TODAY. PROCEDURE CODES FA211 ESTABILISHED PATIENT [facility] CHARGE DISPOSITION & COMMUNICATION FOLLOW UP SCHEDULE F/U MAY ELECTRONICALLY SIGNED BY FABIOLA RICO ON 08/09/2019 AT 02:26 PM EDT DISCLAIMER : THIS IS A VISIT SUMMARY EXTRACTED FROM THE [employer] CHART. IT IS NOT A COPY OF THE [employer] PROGRESS NOTE. EDY
== END ==
LOC: M PAIN 10:00
PROVIDERS: ATTEND Nurse Practitioner Family
DX: M53.3 Sacrococcygeal disorders, not elsewhere classified (principal); M25.50 Pain in unspecified joint; G89.29 Other chronic pain; J44.9 Chronic obstructive pulmonary disease, unspecified; G47.30 Sleep apnea, unspecified; I10 Essential (primary) hypertension; I25.10 Atherosclerotic heart disease of native coronary artery without angina pectoris; E11.9 Type 2 diabetes mellitus without complications; M06.9 Rheumatoid arthritis, unspecified; F03.90 Unspecified dementia, unspecified severity, without behavioral disturbance, psychotic disturbance, mood disturbance, and anxiety; G62.9 Polyneuropathy, unspecified; Z86.59 Personal history of other mental and behavioral disorders; Z95.0 Presence of cardiac pacemaker; Z96.659 Presence of unspecified artificial knee joint; Z88.1 Allergy status to other antibiotic agents; Z88.2 Allergy status to sulfonamides; Z88.8 Allergy status to other drugs, medicaments and biological substances; Z91.030 Bee allergy status; Z91.040 Latex allergy status; Z79.84 Long term (current) use of oral hypoglycemic drugs; Z79.01 Long term (current) use of anticoagulants; Z79.82 Long term (current) use of aspirin; Z79.899 Other long term (current) drug therapy

== ENCOUNTER → 2019-08-11 | Outpatient (REF) | payer MEDICARE, OTHER ==
[2019-08-11 18:14] LABS: PERCENT SATURATION 15.1 % (13.2-45.0)
== END ==
LOC: M LAB REF 17:23
PROVIDERS: ATTEND Nurse Practitioner Family
DX: D64.9 Anemia, unspecified (principal)

== ENCOUNTER → 2020-03-25 | Outpatient (CLI) | payer MEDICARE, OTHER ==
[~2020-03-25] MED LIST changes: +AMLO10TA5 PO; +B-12100021 PO; +BISO5TAB14 PO; -BISO5TAB9 PO; +CEPH500C PO; +DOCU100C16 PO; +KEFL500C17 PO; -LEVE500T88; +LEVE500T88 PO; +MAGN400T2 PO; -MECL-68 PO; +MECL1TAB31 PO; +METF-838 PO; +METO25TA4 PO; +NYST10006 TOP; +OMEP1CAP73; -OMEP20CA4; +PRIM250T8 PO; +PRIM50TA6 PO; +PROV108A INH; +PYRI1TAB5 PO; +TRAZ1TAB10 PO; +TRAZ1TAB11 PO; +VITA-243 PO; -VITA500T PO
--- NOTE | 2020-03-29 13:16 | ECWPNPC ---
PATIENT NAME: MAGI MCKEON : 1945 GENDER: FEMALE VISIT DATE: 03/25/2020 DISCHARGE DATE: 03/25/20 1357 VISIT LOCKED DATE TIME: PHYSICIAN: ADRIAN HEMPHILL RESOURCE: ADRIAN HEMPHILL REASON FOR APPOINTMENT 1. BACK PAIN HISTORY OF PRESENT ILLNESS GENERAL: PATIENT IS AGREEABLE TO TELEPHONE VISIT TODAY. SHE JUST RETURNED FROM [place]. CHIEF AREA OF PAIN IS LOWER BACK AND SHOULDER. HISTORY OF RHEUMATOID ARTHRITIS. CURRENTLY USING OXYCODONE 10 MG EVERY 8 HOURS UP TO 3 TABLETS PER DAY NEEDED FOR SEVERE PAIN EPISODES. FINDS THIS MEDICATION HELPFUL AT REDUCING HER PAIN AND KEEPING HER FUNCTIONAL. DENIES ADVERSE SIDE EFFECTS OF MEDICATION. -. FALL RISK SCREENING: SCREENING :NO FALLS REPORTED IN THE LAST YEAR PAIN SCREENING: PATIENT HAS A COMPLAINT OF ACUTE OR CHRONIC PAIN :YES 03/22/20 INTENSITY OF PAIN (SCALE OF 1 TO 10):7 WHAT DOES YOUR PAIN FEEL LIKE:ACHING, CONTINOUS PAIN IS INCREASED BY: COLD WEATHER PAIN IS DECREASED BY: HEAT, WARMER WEATHER NURSING NOTE: -. PAIN CENTER INTAKE QUESTIONS: DO YOU HAVE A HISTORY OF MRSA? :YES DO YOU TAKE A BLOOD THINNERS? :YES PLAVIX DO YOU HAVE ANY BLEEDING DISORDERS? :NO ANY NEW NUMBNESS OR WEAKNESS IN YOUR LEGS OR ARMS? :YES ARMS, HANDS, FINGERS AND LEFT FOOT ANY PACEMAKER,DEFIBRILLATOR, OR DORSAL COLUMN STIMULATOR? :YES PACEMAKER DO YOU HAVE ANY RASHES OR OPEN SORES? :NO ARE YOU ALLERGIC TO IV DYE? :NO ARE YOU DIABETIC? :YES ANY NEW PROBLEMS WITH YOUR MEDICATIONS? :NO HAVE YOU RECEIVED A VACCINE IN THE PAST 30 DAYS? :NO DO YOU PLAN TO RECEIVE A VACCINE IN THE NEXT 21 DAYS? :NO DO YOU NEED ANY PRESCRIPTION? :YES OXY DO YOU TAKE ANY IMMUNOSUPPRESSIVE MEDICATIONS? :NO CURRENT MEDICATIONS TAKING BUMETANIDE 1 MG TABLET 2 TABLET ORALLY DAILY TAKING VITAMIN D (ERGOCALCIFEROL) 95039 UNIT CAPSULE 1 CAPSULE ORALLY WEEKLY TAKING ROPINIROLE HCL 4 MG TABLET 1 TABLET ORALLY TWICE DAILY TAKING METFORMIN HCL ER 500 MG TABLET EXTENDED RELEASE 24 HOUR 2 TAB ORALLY ONCE A DAY TAKING MAGNESIUM 300 MG CAPSULE 1 CAPSULE WITH A MEAL ORALLY THREE TIMES DAILY TAKING ATORVASTATIN CALCIUM 80 MG TABLET 1 TABLET ORALLY ONCE A DAY TAKING PROVENTIL HFA 108 (90 BASE) MCG/ACT AEROSOL SOLUTION 2 PUFFS NEEDED INHALATION EVERY 4 HRS TAKING NITROLINGUAL 0.4 MG/DOSE 1 TRANSLINGUAL DIRECTED TAKING POTASSIUM CHLORIDE CR 10MEQ 2 CAP ORALLY THREE TIMES DAILY TAKING AMLODIPINE BESYLATE 5 MG TABLET 2 TABS ORALLY DAILY TAKING VITAMIN D3 1000 UNIT CAPSULE ORALLY DAILY TAKING PLAVIX 75 MG TABLET ORALLY DAILY TAKING ANASTROZOLE 1 MG TABLET 1 TABLET ORALLY ONCE A DAY TAKING ASPIR-81 81 MG TABLET DELAYED RELEASE 1 TABLET ORALLY ONCE A DAY TAKING LEVETIRACETAM ER 500 MG TABLET EXTENDED RELEASE 24 HOUR 1 TAB ORALLY TWICE DAILY TAKING MAY USE - - METROLAZOLE 2.5MG DAILY TAKING VITAMIN C PLUS 1000 MG TABLET ORALLY TAKING VITAMIN B-12 1000 MCG TABLET 1 TABLET ORALLY ONCE A DAY TAKING MAY HAVE IRON INFUSIONS INTRAVENOUSLY NEEDED, NOTES: LAST ON February TAKING BISOPROLOL FUMARATE 5 MG TABLET 0.5 ORALLY ONCE A DAY TAKING SPIRONOLACTONE 25 MG TABLET 1 TABLET ORALLY ONCE A DAY TAKING VENLAFAXINE HCL ER 150 MG TABLET EXTENDED RELEASE 24 HOUR 1 TABLET WITH FOOD ORALLY ONCE A DAY TAKING PANTOPRAZOLE SODIUM 40 MG TABLET DELAYED RELEASE 1 CAP ORALLY BID TAKING OXYCODONE HCL 10 MG TABLET 1 TO 2 TABLET NEEDED ORALLY Q8H PRN MDD3 NOT-TAKING GABAPENTIN 100 MG CAPSULE 3-4 TABS ORALLY BEFORE BEDTIME MEDICATION LIST REVIEWED AND RECONCILED WITH THE PATIENT PAST MEDICAL HISTORY CATARACTS BILATERAL ANEMIA SWELLING IN THE LEGS ASTHMA COPD SLEEP APNEA ANGINA CHF CAD HTN CIRRHOSIS BOWEL PROBLEMS TYPE 2 DIABETES END STAGE RENAL DISEASE 30% FUNCTIONING RA OSTEOARTHRITIS DEMENTIA SHORT TERM MEMORY ISSUES NEUROPATHY PVD DEPRESSION SKIN CANCER BREAST CANCER SUSPECTED TIA'S ORTHOSTATIC HYPOTENSION TORN ROTATOR CUFF RIGHT ARTHRITIS IN LEFT SHOULDER PACEMAKER- 11/2018 ALLERGIES CIPRO: CONFUSION SOFI INHIBITOR (FOR ALLERGIES USE ONLY): COUGH WELLBUTRIN SR: WEIGHT GAIN SHELLFISH: ANAPHYLAXIS BEE STINGS: SWELLING LATEX: RASH SULFA (FOR ALLERGY USE ONLY): HIVES SURGICAL HISTORY CHOLECYSTECTOMY 1966 TUMOR ON LEG REMOVED 1982 KNEE REPLACEMENT 2007 KNEE REPLACEMENT 2011 COLON RESECTION 2006 HERNIA 2016 CARPAL BELLA LEFT 2018 PACEMAKER 11/2018 UPPER ENDOSCOPY 06/2019 RIGHT SHOULDER REPAIR 12/2019 FAMILY HISTORY MOTHER: DIAGNOSED WITH HYPERTENSION, UNSPECIFIED CEREBRAL ARTERY OCCLUSION WITH CEREBRAL INFARCTION, DIABETES DAUGHTER(S): UNSPECIFIED CEREBRAL ARTERY OCCLUSION WITH CEREBRAL INFARCTION MATERNAL GRAND FATHER: UNSPECIFIED CEREBRAL ARTERY OCCLUSION WITH CEREBRAL INFARCTION 3 SON(S) , 2 DAUGHTER(S) . SOCIAL HISTORY GENERAL: TOBACCO USE ARE YOU A: NONSMOKER. ALCOHOL SCREENING DID YOU HAVE A DRINK CONTAINING ALCOHOL IN THE PAST YEAR?YES HOW OFTEN DID YOU HAVE SIX OR MORE DRINKS ON ONE OCCASION IN THE PAST YEAR?NEVER (0 POINTS) HOW MANY DRINKS DID YOU HAVE ON A TYPICAL DAY WHEN YOU WERE DRINKING IN THE PAST YEAR?1 OR 2 (0 POINTS) HOW OFTEN DID YOU HAVE A DRINK CONTAINING ALCOHOL IN THE PAST YEAR?MONTHLY OR LESS (1 POINT) POINTS1 INTERPRETATIONNEGATIVE CAFFEINE CAFFEINE USE?NO UATSDIN [id number] ROMAN CATHOLIC NO QUAKER BELIEFS THAT WOULD IMPACT HEALTH CARE. LANGUAGE LANGUAGES SPOKEN:FRENCH LEARNING BARRIERS / SPECIAL NEEDS ORIENTED TO PLAN OF CARE: PATIENT, PAIN MANAGEMENT PATIENT, ORIENTED TO PLAN OF CARE: PATIENT, PAIN MANAGEMENT PATIENT. DIET: LOW CARB. EXERCISE: WAS SWIMMING DAILY BEFORE HOSPITALIZATION. MARITAL STATUS: . OTHERS AT HOME: SPOUSE. NEW PATIENT PAIN DIARY TODAY'S VISIT NOTES, FROM 0-10, WHAT LEVEL IS YOUR PAIN TODAY? 0. PAIN CLINIC PFS, CLERGY, PUBLIC HEALTH REFERRALS HAS THE PATIENT BEEN EDUCATED REGARDING HIS/HER PLAN OF CARE?YES HAS THE PATIENT BEEN EDUCATED REGARDING PAIN, THE RISK FOR PAIN, THE IMPORTANCE OF EFFECTIVE PAIN MANAGEMENT, AND THE PAIN ASSESSMENT PROCESS?YES HOUSING: LIVES IN [place] IN WINTER AND HAS PAIN CLINIC IN [place] TOO. ADVANCE DIRECTIVE ADVANCE DIRECTIVE DISCUSSED WITH PATIENT:YES DECLINED INFORMATION REVIEWED WITH PATIENT 07/26/19 1044 NLJ. HOSPITALIZATION/MAJOR DIAGNOSTIC PROCEDURE SUSPECTED TIA 01/2017 FALL/UTI 02/2017 MINI STROKE- PACEMAKER INSERTED 11/14/18 REVIEW OF SYSTEMS CONSTITUTIONAL: ANY RECENT FEVER OR ILLNESS NO . CHILLS NO . GASTROENTEROLOGY: BOWEL INCONTINENCE NO . ANY NEW CHANGE IN BOWEL CONTROL? NO . ABDOMINAL PAIN NO . CONSTIPATION NO . GENITOURINARY: ANY NEW CHANGE IN BLADDER CONTROL? NO . IS THERE A CHANCE YOU COULD BE ? NO . URINARY INCONTINENCE NO . CARDIOLOGY: CHEST PRESSURE NO . CHEST PAIN NO . RESPIRATORY: COUGH NO . SHORTNESS OF BREATH NO . ASSESSMENTS SACROILIAC JOINT PAIN - M53.3 (PRIMARY) GENERALIZED JOINT PAIN - M25.50 CHRONIC PRESCRIPTION OPIATE USE - Z79.891 TREATMENT SACROILIAC JOINT PAIN REFILL OXYCODONE HCL TABLET, 10 MG, 1 TO 2 TABLET NEEDED, ORALLY, Q8H PRN MDD3, 30 DAY(S), 90, REFILLS 0 NOTES: RETURN TO CLINIC IN 6-8 WEEKS FOR IN CLINIC MEDICINE MANAGEMENT VISIT. URINE TOXICOLOGY WILL BE PERFORMED. SHE IS ADVISED TO BRING HER PAIN MEDICATIONS WITH HER. TOTAL TIME SPENT DURING TELEPHONE VISIT WAS APPROXIMATELY 12 MINUTES. , ISTOP REGISTRY REVIEWED AND DEMONSTRATES COMPLLIANCE. OTHERS CLINICAL NOTES: PRE SCREENING CALL DONE 03/22/20 EM. DISPOSITION & COMMUNICATION FOLLOW UP 6 WEEKS IN CLINIC MED MANAGEMENT/URINE TOX (REASON: RHEUMATOID ARTHRITIS/SHOULDER PAIN/LOW BACK PAIN) ELECTRONICALLY SIGNED BY FABIOLA RICO ON 03/26/2020 AT 03:24 PM EDT DISCLAIMER : THIS IS A VISIT SUMMARY EXTRACTED FROM THE [employer] CHART. IT IS NOT A COPY OF THE [employer] PROGRESS NOTE. EDY
== END ==
LOC: M PAIN 13:15
PROVIDERS: ATTEND Nurse Practitioner Family
DX: M53.3 Sacrococcygeal disorders, not elsewhere classified (principal); M25.50 Pain in unspecified joint; J44.9 Chronic obstructive pulmonary disease, unspecified; G47.30 Sleep apnea, unspecified; I10 Essential (primary) hypertension; E11.40 Type 2 diabetes mellitus with diabetic neuropathy, unspecified; F03.90 Unspecified dementia, unspecified severity, without behavioral disturbance, psychotic disturbance, mood disturbance, and anxiety; Z86.59 Personal history of other mental and behavioral disorders; Z95.0 Presence of cardiac pacemaker; Z88.1 Allergy status to other antibiotic agents; Z88.2 Allergy status to sulfonamides; Z88.8 Allergy status to other drugs, medicaments and biological substances; Z91.013 Allergy to seafood; Z91.030 Bee allergy status; Z91.040 Latex allergy status; Z79.82 Long term (current) use of aspirin; Z79.84 Long term (current) use of oral hypoglycemic drugs; Z79.899 Other long term (current) drug therapy

== ENCOUNTER 2020-03-30 11:12 | Inpatient (IN) | payer MEDICARE, OTHER ==
[~2020-03-30] VITALS: Ht 152.4 cm; Wt 74.6 kg
[~2020-03-30 11:12] MED LIST changes: -AMLO10TA5 PO; -B-12100021 PO; -CEPH500C PO; -DOCU100C16 PO; -KEFL500C17 PO; -MAGN400T2 PO; -METF-838 PO; -METO25TA4 PO; -NYST10006 TOP; -PRIM250T8 PO; -PRIM50TA6 PO; -PROV108A INH; -PYRI1TAB5 PO; -TRAZ1TAB10 PO; -TRAZ1TAB11 PO
[2020-03-30] MEDS ORDERED: TRAZ1TAB10 PO (11:50)
[2020-03-30] MEDS ORDERED: PROV108A INH (11:50)
[2020-03-30] MEDS ORDERED: PRIM250T8 PO (11:50)
[2020-03-30] MEDS ORDERED: POTA20TA6 PO (11:50)
[2020-03-30 12:25] LABS: BASO % 0.1 % (0.0-1.0); EOS # 0.3 10^3/uL (0.0-0.5); EOS % 2.5 % (0.0-3.0); HEMATOCRIT 36.8 % (36.0-47.0); HEMOGLOBIN 11.5 g/dl (12.0-15.5); LYMPH # 1.1 10^3/uL (1.5-5.0); LYMPH % 9.6 % (24.0-44.0); MEAN CORPUSCULAR HEMOGLOBIN 27.9 pg (27.0-33.0); MEAN CORPUSCULAR HGB CONC 31.3 g/dl (32.0-36.5); MEAN CORPUSCULAR VOLUME 89.3 fl (80.0-96.0); MONO # 0.9 10^3/uL (0.0-0.8); MONO % 7.8 % (0.0-5.0); NEUTROPHILS # 8.9 10^3/uL (1.5-8.5); NEUTROPHILS % 79.8 % (36.0-66.0); PLATELET COUNT, AUTOMATED 207 10^3/uL (150-450); RED BLOOD COUNT 4.12 10^6/uL (4.00-5.40); WHITE BLOOD COUNT 11.1 10^3/uL (4.0-10.0)
[2020-03-30 12:55] LABS: ALBUMIN 3.4 GM/DL (3.2-5.2); BILIRUBIN,DIRECT 0.2 MG/DL (0.0-0.2); BILIRUBIN,TOTAL 0.5 MG/DL (0.2-1.0); TOTAL PROTEIN 7.1 GM/DL (6.4-8.2)
--- NOTE | 2020-03-30 14:19 | REP ---
CT abdomen/pelvis: 03/30/2020. Indication: Emesis. Diarrhea. Acute renal failure. Technique: Unenhanced axial CT images of the abdomen and pelvis were performed with coronal and sagittal reconstructions provided. Comparison: 05/09/2019. Findings: The visualized lungs are clear. Postoperative sequelae are present status post partial gastrectomy and anterior abdominal wall mesh. Surgical clips are additionally noted within the pelvis. No abnormal fluid collections are present. There is no evidence of bowel obstruction. No focal abnormalities of the spleen, liver, pancreas, adrenal glands or kidneys are noted. Aortoiliac atherosclerotic disease is present. The patient is status post cholecystectomy. Impression: No acute abdominal or pelvic pathology. Electronically Signed by Jose Manuel Multani DO 03/30/2020 02:10 P
[2020-03-30] MEDS ORDERED: cefTRIAXone SOD 1 GM in D5W MINI-BAG PLUS 50 ML IV ONE (15:00)
[2020-03-30] MEDS ORDERED: NS 1,000 ML IV ONE (15:00)
--- NOTE | 2020-03-30 15:07 | HPEPDOC ---
[facility] Medical History & Physical Date of Admission Mar 30, 2020 Date of Service: Mar 30, 2020 Primary Care Physician: Rosa Lipscomb MD Attending Physician: ASHANTI ODELL MD History and Physical TIME OF SERVICE: 3:45 PM CHIEF COMPLAINT: "My made me come " HISTORY OF PRESENT ILLNESS: This is a 74-year-old female came to the hospital because her insisted she come in for evaluation of multiple episodes of nonbloody emesis and dark brown watery diarrhea that began on . She reported that "even water makes me through up water, soda, anything" .She has also been feeling dizzy and has urinary urgency and pain with urination that improved a little bit with Azo. She denies having fevers or chills. REVIEW OF SYSTEMS: 12 point review of systems negative except as listed in HPI PAST MEDICAL/ SURGICAL HISTORY: CKD 3 Seizure disorder Anemia of chronic disease TIA Asthma ? Liver Cirrhosis Rheumatoid arthritis Chronic CAD NIDDM Sleep apnea with periodic limb movement disorder /BiPAP 02/06/ Chronic Hypertension / Chronic diastolic congestive heart failure GERD Diverticulitis ER/TN pos, HER-2 neg Infiltrating ductal carcinoma ([id number]) s/p lumpectomy, sentinel lymph node dissection, neoadjuvant radiation & currently on hormonal therapy History of abdominal hernia status post surgical repair Bilateral knee replacement Cholecystectomy Partial colectomy Bilateral cataract surgery SOCIAL HISTORY: She doesn't smoke She drinks socially She goes to [place] every winter FAMILY HISTORY: Cancer affecting multiple family members CVAs affecting multiple family members Liver cirrhosis on her maternal side Diabetes Hypertension ALLERGIES: Please see below. HOME MEDICATIONS: Please see below. PHYSICAL EXAMINATION: Vital Signs Date Time Temp Pulse Resp B/P (MAP) Pulse Ox O2 Delivery O2 Flow Rate FiO2 03/30/20 11:19 98.2 69 16 115/56 (75) 98 Room Air GEN: well-nourished / well developed/ NAD INTEGUMENT: not flushed/ not jaundice HEENT: NCAT / lips acyanotic /mucus membranes moist and pink CVS: RRR/NMRG/ / radial pulses intact LUNGS: able to speak full sentences without stopping to take a breath / lungs are clear to auscultation bilaterally on room air ABDOMEN: Contour (obese) / soft & not tender slightly tender palpation MSK/EXTREMITIES: range of motion intact in all 4 extremities NEURO: CN 2-12 are grossly intact / speech is not dysarthric PSYCH: alert and oriented to person place and time/ able to understand and follow all commands LABORATORY DATA: 03/30/20 12:12 Immature Granulocyte % (Auto) 0.2, Neutrophils (%) (Auto) 79.8H, Lymphocytes (%) (Auto) 9.6L, Monocytes (%) (Auto) 7.8H, Eosinophils (%) (Auto) 2.5, Basophils (%) (Auto) 0.1, Neutrophils # (Auto) 8.9H, Lymphocytes # (Auto) 1.1L, Monocytes # (Auto) 0.9H, Eosinophils # (Auto) 0.3, Basophils # (Auto) 0.0, Nucleated Red Blood Cells % (auto) 0.0, Total Bilirubin 0.5, Direct Bilirubin 0.2, Aspartate Amino Transf (AST/SGOT) 112H, Alanine Aminotransferase (ALT/SGPT) 342H, Alkaline Phosphatase 132H, Total Protein 7.1, Albumin 3.4, Albumin/Globulin Ratio 0.9L, Lipase 92 03/30/20 12:14: POC Glucose (Misc Panel) 109H, POC Sodium (Misc Panel) 138, POC Potassium (Misc Panel) 3.4L, POC Chloride (Misc Panel) 96L, POC Total CO2 (Misc Panel) 28.0H, PO C Blood Urea Nitrogen (Misc Panel 39H, POC Ionized Calcium (Misc Panel) 4.4L, POC Creatinine (Misc Panel) 2.0H, POC Hematocrit (Misc Panel) 36.0L 03/30/20 12:50: Urine Color YOCASTA, Urine Appearance TURBIDH, Urine pH 5.0, Urine Specific [place] 1.011, Urine Protein NEGATIVE, Urine Glucose (UA) NEGATIVE, Urine Ketones NEGATIVE, Urine Blood 1+H, Urine Nitrite NEGATIVE, Urine Bilirubin NEGATIVE, Urine Urobilinogen 0.2, Urine Leukocyte Esterase 3+H, Urine WBC (Auto) TNTCH, Urine RBC (Auto) 27H, Urine Hyaline Casts (Auto) 0, Urine Bacteria (Auto) 3+H, Urine Squamous Epithelial Cells 2, Urine Transitional Epithelial Cells 2, Urine Mucus (Auto) SMALL, Urine Sperm (Auto) IMAGING: CT abdomen and pelvis " Impression: No acute abdominal or pelvic pathology. MICROBIOLOGY: 03/30/20 Urine Culture, Received Pending ASSESSMENT: Ms. Hickey is a 74-year-old with a history of CKD 3, Asthma ?, seizure disorder, anemia, chronic disease, TIA, liver cirrhosis, RA, CAD, NIDDM, sleep apnea, HTN, GERD, and breast cancer who is admitted for management of nausea, vomiting and diarrhea secondary to UTI and MATTHEW on CKD. PLAN: 1. Nausea, vomiting and diarrhea secondary to UTI/ Cystitis She does not meet SIRS criteria. UA was positive for leukocyte esterase and WBCs Plan: Admit to medical floor/continue with IV ceftriaxone the day time doc may consider switching to PO meds tommorow if the vomiting has resolved/ f/u Ucx, blood Cx and renal function / IV fluids and Zofran 2. Acute Renal Failure on CKD MATTHEW is likely prerenal due to v/d POC Cr is 2 Plan: Is/Os, daily weights / IVF / f/u ulytes for FENa or FEUrea 3. Anemia of chronic disease. Her hemoglobin has dropped to about 11 from her baseline of 13 Plan: Follow-up CBC, stool occult and and iron panel 4. Seizure disorder -levetiracetam 5. Asthma ? - Albuterol 6. Transaminitis 2/2 Liver Cirrhosis. I am not sure what the primary cause of the cirrhosis is - f/u w as scheduled 7. Chronic CAD/ TIA - aspirin, atorvastatin, clopidogrel, nitroglycerin 8. NIDDM - diabetic diet / f/u accuchecks & A1C / hypoglycemia protocol / sliding scale insulin / hold metformin to reduce risk of lactic acidosis in the setting of renal impairment/ since she is already taking Metformin at home and has CAD the day time team may consider discharging her with empagliflozin to reduce the risk of CVD once her renal function has returned to baseline 9. Chronic Hypertension / Chronic diastolic congestive heart failure - amlodipine, metoprolol, bumetadine 10. GERD - PPI 11. Infiltrating ductal carcinoma - anastrozole 12. Sleep apnea with periodic limb movement disorder - own BIPAP 13. Obesity with BMI of 32.4 and co-existing sleep apnea and DM complicates care DVT PROPHYLAXIS: Heparin DISPOSITION: Home after more than 2 midnight's stay Home Medications Scheduled Amlodipine Besylate (Amlodipine Besylate) 10 Mg Tablet, 10 MG PO DAILY Anastrozole (Anastrozole) 1 Mg Tablet, 1 MG PO DAILY Ascorbic Acid (Vitamin C) 500 Mg Tablet, 1,000 MG PO DAILY TAKES AT NOON Aspirin (Aspir 81) 81 Mg Tab, 81 MG PO DAILY Atorvastatin Calcium (Lipitor) 80 Mg Tab, 80 MG PO QHS Bumetanide (Bumetanide) 1 Mg Tab, 2 MG PO DAILY Clopidogrel Bisulfate (Plavix) 75 Mg Tab, 75 MG PO DAILY Cyanocobalamin (Vitamin B-12) (B-12) 1,000 Mcg Tablet, 1,000 MCG PO DAILY TAKES AT NOON Ergocalciferol (Vitamin D2) (Drisdol) 1,250 Mcg Capsule, 50,000 UNITS PO QWEEK TUESDAYS Levetiracetam (Levetiracetam ER) 500 Mg Tab.er.24h, 500 MG PO BID Metformin HCl (Metformin HCl ER) 500 Mg Tab.er.24h, 500 MG PO BID Metoprolol Tartrate (Metoprolol Tartrate) 25 Mg Tablet, 25 MG PO BID Oxycodone HCl (Oxycodone HCl) 10 Mg Tablet, 10 MG PO TID Pantoprazole Sodium (Pantoprazole Sodium) 40 Mg Tablet.dr, 40 MG PO BID Potassium Chloride (Potassium Chloride) 10 Meq Tab.er.prt, 10 MEQ PO QPM Primidone (Primidone) 50 Mg Tablet, 50 MG PO BID Ropinirole HCl (Ropinirole HCl) 4 Mg Tablet, 4 MG PO BID Trazodone HCl (Trazodone HCl) 50 Mg Tablet, 100 MG PO QHS Scheduled PRN Albuterol Sulfate (Proventil Hfa) 6.7 Gm Hfa.aer.ad, 2 PUFF INH Q4H PRN for SOB/WHEEZING Docusate Sodium (Docusate Sodium) 100 Mg Capsule, 100 MG PO DAILY PRN for CONSTIPATION Nitroglycerin (Nitroglycerin) 0.4 Mg Sub, 0.4 MG SL Q5MP PRN for CHEST PAIN Allergies Coded Allergies: shellfish derived (Verified Allergy, Severe, ANAPHYLAXIS, 05/09/19) Sulfa (Sulfonamide Antibiotics) (Verified Allergy, Intermediate, rash,itch, 03/30/20) ciprofloxacin (Verified Allergy, Unknown, RASH, 03/30/20) gabapentin (Verified Allergy, Unknown, RASH, 03/30/20) latex (Verified Allergy, Unknown, 05/09/19) spironolactone (Verified Allergy, Unknown, RASH, 03/30/20) SOFI Inhibitors (Verified Adverse Reaction, Unknown, cough, 03/30/20) bupropion (Verified Adverse Reaction, Unknown, weight gain, 03/30/20) pentazocine (Verified Adverse Reaction, Unknown, AMS, 03/30/20) A-FIB/CHADSVASC A-FIB History Current/History of A-Fib/PAF?: No Current PO Anticoag Therapy: No ASHANTI ODELL MD Mar 30, 2020 15:07
[2020-03-30] MEDS ORDERED: PRIM50TA6 PO (15:15)
[2020-03-30] MEDS ORDERED: DOCU100C16 PO (15:15)
[2020-03-30] MEDS ORDERED: ACETAMINOPHEN TAB 650MG DOSE (2X325MG) PO PRN (15:15)
[2020-03-30] MEDS ORDERED: POTA10TA16 PO (15:15)
[2020-03-30] MEDS ORDERED: DRIS50003 PO (15:15)
[2020-03-30] MEDS ORDERED: MAALOX 30 ML SUSP *UDC PO PRN (15:15)
[2020-03-30] MEDS ORDERED: TRAZ1TAB11 PO (15:15)
[2020-03-30] MEDS ORDERED: METF-838 PO (15:15)
[2020-03-30] MEDS ORDERED: B-12100021 PO (15:15)
[2020-03-30] MEDS ORDERED: AMLO10TA5 PO (15:15)
[2020-03-30] MEDS ORDERED: ONDANSETRON 4 MG TAB PO PRN (15:15)
[2020-03-30] MEDS ORDERED: MOM 30ML SUSPENSION UDC PO PRN (15:15)
[2020-03-30] MEDS ORDERED: METO25TA4 PO (15:17)
[2020-03-30] MEDS ORDERED: NITROGLYCERIN 0.4 MG SUBL TABLET SL PRN (16:30)
[2020-03-30] MEDS ORDERED: DOCUSATE SODIUM 100 MG CAP PO PRN (16:30)
[2020-03-30] MEDS ORDERED: ALBUTEROL 90 MCG/ACT 8GM HFA INHALER INH PRN (16:30)
[2020-03-30] MEDS: NS 1,000 ML IV SCH (16:41)
[2020-03-30] MEDS ORDERED: DEXTROSE 50% 50 ML SYRINGE IV PRN (16:45)
[2020-03-30] MEDS ORDERED: GLUCOSE 4GM CHEW TABLET PO PRN (16:45)
[2020-03-30] MEDS ORDERED: GLUCAGON INJ 1MG VIAL SC PRN (16:45)
[2020-03-30] MEDS: HumaLOG INSULIN (NovoLOG) PER UNIT SC SCH ×2 (17:26→21:00)
[2020-03-30 18:18] LABS: PERCENT SATURATION 19.9 % (13.2-45.0)
[2020-03-30 18:45] LABS: HEMOGLOBIN A1c 5.2 %
[2020-03-30] MEDS: oxyCODONE 5MG TAB PO SCH (21:24)
[2020-03-30] MEDS: HEPARIN SOD (PORCINE) 5000UNITS/ML VIAL (J1644 PER 1000UNITS) SC SCH (21:24)
[2020-03-30] MEDS: levETIRAcetam **XR** 500 MG TABLET PO SCH (21:24)
[2020-03-30] MEDS: PRIMIDONE 50 MG TAB PO SCH (21:25)
[2020-03-30] MEDS: rOPINIRole 2MG TAB PO SCH (21:25)
[2020-03-30] MEDS: traZODone 100 MG TAB PO SCH (21:25)
[2020-03-30] MEDS: ATORVASTATIN 20 MG TAB PO SCH (21:25)
[2020-03-30] MEDS: POTASSIUM CHLORIDE 10 MEQ SR TABLET PO SCH (21:26)
[2020-03-30] MEDS: PANTOPRAZOLE 40MG TAB (PROTONIX) PO SCH (21:26)
[2020-03-30] MEDS: METOPROLOL TART 25 MG TABLET PO SCH (21:26)
[2020-03-30 22:00] VITALS: BP 129/60
[2020-03-31] MEDS: HEPARIN SOD (PORCINE) 5000UNITS/ML VIAL (J1644 PER 1000UNITS) SC SCH ×3 (05:34→21:29)
[2020-03-31 06:00] VITALS: BP 147/72
[2020-03-31 06:53] LABS: HEMATOCRIT 32.4 % (36.0-47.0); HEMOGLOBIN 10.2 g/dl (12.0-15.5); MEAN CORPUSCULAR HGB CONC 31.5 g/dl (32.0-36.5); PLATELET COUNT, AUTOMATED 157 10^3/uL (150-450); RED BLOOD COUNT 3.64 10^6/uL (4.00-5.40); WHITE BLOOD COUNT 7.6 10^3/uL (4.0-10.0)
[2020-03-31 07:19] LABS: CALCIUM LEVEL 8.8 MG/DL (8.8-10.2); CREATININE FOR GFR 1.17 MG/DL (0.55-1.30); GLOMERULAR FILTRATION RATE 48.1 (>39); MAGNESIUM LEVEL 1.3 MG/DL (1.8-2.4); POTASSIUM SERUM 3.3 MEQ/L (3.5-5.1)
[2020-03-31] MEDS: HumaLOG INSULIN (NovoLOG) PER UNIT SC SCH ×4 (07:27→21:00)
[2020-03-31] MEDS: ASPIRIN 81 MG ENTERIC TAB PO SCH (08:12)
[2020-03-31] MEDS: PANTOPRAZOLE 40MG TAB (PROTONIX) PO SCH ×2 (08:12→21:30)
[2020-03-31] MEDS: CLOPIDOGREL 75 MG TAB PO SCH (08:12)
[2020-03-31] MEDS: levETIRAcetam **XR** 500 MG TABLET PO SCH ×2 (08:12→21:30)
[2020-03-31] MEDS: NS 1,000 ML IV SCH (08:12)
[2020-03-31] MEDS: rOPINIRole 2MG TAB PO SCH ×2 (08:12→21:30)
[2020-03-31] MEDS: PRIMIDONE 50 MG TAB PO SCH ×2 (08:12→21:31)
[2020-03-31] MEDS: ASCORBIC ACID 500 MG TAB PO SCH (08:13)
[2020-03-31] MEDS: METOPROLOL TART 25 MG TABLET PO SCH ×2 (08:13→21:31)
[2020-03-31] MEDS: BUMETANIDE 1 MG TAB PO SCH (08:13)
[2020-03-31] MEDS: CYANOCOBALAMIN 500 MCG TAB PO SCH (08:13)
[2020-03-31] MEDS: amLODIPine 10 MG TAB PO SCH (08:13)
[2020-03-31] MEDS: oxyCODONE 5MG TAB PO SCH ×3 (08:15→21:32)
[2020-03-31] MEDS ORDERED: PREVNAR 13 VACCINE SYRINGE (CPT CODE:90670) IM ONE (09:00)
[2020-03-31 10:00] VITALS: BP 140/70
[2020-03-31] MEDS ORDERED: cefTRIAXone SOD 2 GM in D5W MINI-BAG PLUS 50 ML IV SCH (11:00)
[2020-03-31] MEDS ORDERED: POTASSIUM CHLORIDE 10 MEQ SR TABLET PO ONE (12:00)
[2020-03-31] MEDS ORDERED: MAG SULF 1GM/100ML (MAG RUN) 1 GM in IV 1 EA IV ONE (12:00)
--- NOTE | 2020-03-31 12:08 | IPNPDOC ---
Text Note Date of Service The patient was seen on 03/31/20. NOTE Subjective: Feels much better this morning GEN: NAD INTEGUMENT: not flushed/ not jaundice HEENT: NCAT, EOMI, MMM CVS: RRR, no mrg LUNGS: CTAB ABDOMEN: Normoactive bowel sounds, soft, NTND, mild bilateral flank pain on percussion EXTREMITIES: range of motion intact in all 4 extremities NEURO: CN 2-12 are grossly intact, grossly nonfocal PSYCH: AOx3 LABORATORY DATA: WBC 7.6 K 3.3 Mag 1.3 Hgb 10.2 Cr 1.17 Pending LFTs IMAGING: CT abdomen and pelvis " Impression: No acute abdominal or pelvic pathology. MICROBIOLOGY: 03/30/20 Urine Culture, Received Pending ASSESSMENT: Ms. Hickey is a 74-year-old with a history of CKD 3, Asthma ?, seizure disorder, anemia, chronic disease, TIA, liver cirrhosis, RA, CAD, NIDDM, sleep apnea, HTN, GERD, and breast cancer who is admitted for management a UTI and MATTHEW, and also has a notable transaminitis. PLAN: 1. Nausea, vomiting and diarrhea secondary to UTI/ Cystitis without herb sepsis -UA was positive for leukocyte esterase and WBCs, has a history of pansensitive E.coli, will continue ceftriaxone for now, with pending culture -f/u UCx, Bcx -s/p IVF -zofran PRN 2. Transaminitis: Has a history of cirrhosis, however without a chronic transaminitis and negative hepatitis serologies in the past -Will check a complete liver US with doppler -monitor LFTs 3. Acute Renal Failure on CKD in the setting of N/V in the setting of a UTI, prerenal, improved after fluids -monitor daily BMP - avoid nephrotoxic meds 4. Hypokalemia and hypomagnesemia: 2/2 GI losses -replete PRN 5. Anemia of chronic disease. Her hemoglobin has dropped to about 11 from her baseline of 13 -iron panel c/w AOCI, f/u FOBT 6. Seizure disorder -levetiracetam 7. Asthma ? - Albuterol 8. Chronic CAD/ TIA - aspirin, atorvastatin, clopidogrel, nitroglycerin 9. NIDDM - diabetic diet / f/u accuchecks & A1C / hypoglycemia protocol / sliding scale insulin / hold metformin to reduce risk of lactic acidosis in the setting of renal impairment/ since she is already taking Metformin at home and has CAD the day time team may consider discharging her with empagliflozin to reduce the risk of CVD once her renal function has returned to baseline 10. Chronic Hypertension / Chronic diastolic congestive heart failure - amlodipine, metoprolol, bumetadine 11. GERD - PPI 12. Infiltrating ductal carcinoma - anastrozole 13. Sleep apnea with periodic limb movement disorder - own BIPAP 14. Obesity with BMI of 32.4 and co-existing sleep apnea and DM complicates care DVT PROPHYLAXIS: Heparin DISPOSITION: Medsurg inpatient VS,Fishbone, I+O VS, Fishbone, I+O Laboratory Tests 03/30/20 12:12 03/31/20 06:42 Vital Signs Date Time Temp Pulse Resp B/P (MAP) Pulse Ox O2 Delivery O2 Flow Rate FiO2 03/31/20 09:00 18 03/31/20 08:13 68 141/78 03/31/20 06:00 97.3 98 03/30/20 21:54 Room Air I&O- Last 24 Hours up to 6 AM 03/31/20 06:00 Intake Total 1770 ml Output Total 600 ml Balance 1170 ml SALVADOR MCKEON MD Mar 31, 2020 10:15
[2020-03-31 12:31] LABS: ALBUMIN 2.9 GM/DL (3.2-5.2); BILIRUBIN,DIRECT 0.2 MG/DL (0.0-0.2); BILIRUBIN,TOTAL 0.3 MG/DL (0.2-1.0); TOTAL PROTEIN 5.9 GM/DL (6.4-8.2)
[2020-03-31 14:00] VITALS: BP 140/70
[2020-03-31] MEDS ORDERED: NYSTATIN 100,000 UNITS/GM TOPICAL PWD 15 GM TOP PRN (15:00)
[2020-03-31 18:00] VITALS: BP 142/72
[2020-03-31] MEDS: ATORVASTATIN 20 MG TAB PO SCH (21:30)
[2020-03-31] MEDS: traZODone 100 MG TAB PO SCH (21:30)
[2020-03-31] MEDS: POTASSIUM CHLORIDE 10 MEQ SR TABLET PO SCH (21:30)
[2020-03-31 22:00] VITALS: BP 139/73
[2020-04-01] MEDS: NS 1,000 ML IV SCH ×2 (00:57→19:14)
[2020-04-01 06:00] VITALS: BP 149/65
[2020-04-01] MEDS: HEPARIN SOD (PORCINE) 5000UNITS/ML VIAL (J1644 PER 1000UNITS) SC SCH ×3 (06:04→21:42)
[2020-04-01 06:47] LABS: ALBUMIN 2.8 GM/DL (3.2-5.2); BILIRUBIN,DIRECT 0.1 MG/DL (0.0-0.2); BILIRUBIN,TOTAL 0.4 MG/DL (0.2-1.0)
[2020-04-01] MEDS: HumaLOG INSULIN (NovoLOG) PER UNIT SC SCH ×4 (07:30→21:00)
[2020-04-01] MEDS ORDERED: NYST10006 TOP (08:43)
[2020-04-01] MEDS ORDERED: CEPH500C PO (08:46)
[2020-04-01] MEDS: levETIRAcetam **XR** 500 MG TABLET PO SCH ×3 (09:00→21:42)
[2020-04-01] MEDS: CEPHALEXIN 500 MG CAP PO SCH ×4 (09:00→21:47)
[2020-04-01 09:16] LABS: CALCIUM LEVEL 8.2 MG/DL (8.8-10.2); CREATININE FOR GFR 1.07 MG/DL (0.55-1.30); GLOMERULAR FILTRATION RATE 53.4 (>39); POTASSIUM SERUM 3.8 MEQ/L (3.5-5.1)
[2020-04-01 11:00] VITALS: BP 149/72
[2020-04-01] MEDS: ASCORBIC ACID 500 MG TAB PO SCH (11:40)
[2020-04-01] MEDS: amLODIPine 10 MG TAB PO SCH (11:41)
[2020-04-01] MEDS: CYANOCOBALAMIN 500 MCG TAB PO SCH (11:41)
[2020-04-01] MEDS: BUMETANIDE 1 MG TAB PO SCH ×2 (11:41→11:51)
[2020-04-01] MEDS: CLOPIDOGREL 75 MG TAB PO SCH (11:42)
[2020-04-01] MEDS: ASPIRIN 81 MG ENTERIC TAB PO SCH (11:42)
[2020-04-01] MEDS: PANTOPRAZOLE 40MG TAB (PROTONIX) PO SCH ×2 (11:50→21:42)
[2020-04-01] MEDS: rOPINIRole 2MG TAB PO SCH ×2 (11:50→21:43)
[2020-04-01] MEDS: METOPROLOL TART 25 MG TABLET PO SCH ×2 (11:50→21:43)
[2020-04-01] MEDS: PRIMIDONE 50 MG TAB PO SCH ×2 (11:50→21:43)
--- NOTE | 2020-04-01 11:50 | REP ---
HEPATIC SONOGRAPHY WITH DOPPLER EVALUATION: HISTORY: New elevation of liver enzymes in a cirrhotic patient. Comparison is made with CT imaging from March 30, 2020. SONOGRAPHIC FINDINGS: Complete abdominal sonography is performed. The gallbladder is surgically absent. No focal hepatic lesion is seen. The liver is not enlarged. Common bile duct is normal post cholecystectomy at 0.9 cm. No pancreatic abnormality is observed. There is no visible ascites. Abdominal aorta is normal in caliber, 2.4 cm AP dimension. The spleen is not enlarged and is homogeneous in texture. 9.4 cm in length. Renal cortical echogenicity pattern is normal and contours are smooth bilaterally. The right kidney measures 10.1 x 5.2 x 3.8 cm. Left renal dimensions of 10.2 x 5.3 x 5.6 cm. There is a 1.1 cm hyperechoic zone in the left renal cortex upper to mid pole level consistent with a small benign lipoma. This is visible on CT. There is a cyst in the upper pole cortex of the right kidney measuring 0.8 cm in greatest diameter. IMPRESSION: No significant morphologic abnormality. Post cholecystectomy. DOPPLER ASSESSMENT: Normal direction of venous velocity is observed in the portal veins and splenic vein. Portal vein is 10 mm in diameter and is not dilated. Venous velocity in the splenic vein is 26 cm/s and that in the portal vein 19 cm/s. The peak systolic flow velocity in the hepatic artery is normal and 86.7 cm/s. IMPRESSION: Normal hepatic and portal visceral Doppler findings. Electronically Signed by Jatin Paul MD 04/01/2020 02:56 P
[2020-04-01] MEDS: oxyCODONE 5MG TAB PO SCH ×3 (11:52→21:45)
[2020-04-01 14:00] VITALS: BP 128/86
--- NOTE | 2020-04-01 17:48 | DS.PDOC ---
Discharge Summary General Date of Admission Mar 30, 2020 at 15:01 Date of Discharge 04/02/2020 Attending Physician: SALVADOR MCKEON MD Discharge Summary PROCEDURES PERFORMED DURING STAY: None ADMITTING DIAGNOSES: 1. UTI 2. MATTHEW on CKD DISCHARGE DIAGNOSES: UTI MATTHEW on CKD 3 Seizure disorder Anemia of chronic disease TIA Asthma ? Liver Cirrhosis Rheumatoid arthritis Chronic CAD NIDDM Sleep apnea with periodic limb movement disorder /BiPAP 02/06/ Chronic Hypertension / Chronic diastolic congestive heart failure GERD Diverticulitis ER/NH pos, HER-2 neg Infiltrating ductal carcinoma ([id number]) s/p lumpectomy, sentinel lymph node dissection, neoadjuvant radiation & currently on hormonal therapy COMPLICATIONS/CHIEF COMPLAINT: Acute Renal Failure,Uti. HISTORY OF PRESENT ILLNESS: 74-year-old W who came to the hospital because her insisted she come in for evaluation of multiple episodes of nonbloody emesis and dark brown watery diarrhea that began on , with worsening dysuria despite taking azo. HOSPITAL COURSE: On evaluation she had a leukocytosis to 11.6 and a positive UA c/w a UTI. She has a history of pansensitive E.coli UTIs and so she was placed on ceftriaxone and given supportive zofran with resolution of her symptoms. Her leukocytosis resolved and she tolerated a consistent carb diet and was switched to keflex which she will complete a course for acute cystitis. She is now being discharged home to complete 5 more days of QID keflex for a total 7d course for acute cystitis. Of note, she did have noted transaminitis without a clear nelida ology and no abdominal pain and no hyperbilirubinemia. An abdominal US with doppler showed no portal circulation clot and no liver abnormalities and the transaminitis improved on subsequent studies. DISCHARGE MEDICATIONS: Please see below. ALLERGIES: Please see below. PHYSICAL EXAMINATION ON DISCHARGE: VITAL SIGNS: Please see below. GEN: NAD INTEGUMENT: not flushed/ not jaundice HEENT: NCAT, EOMI, MMM CVS: RRR, no mrg LUNGS: CTAB ABDOMEN: Normoactive bowel sounds, soft, NTND, mild bilateral flank pain on percussion EXTREMITIES: range of motion intact in all 4 extremities NEURO: CN 2-12 are grossly intact, grossly nonfocal PSYCH: AOx3 LABORATORY DATA: Please see below. IMAGING: CT A/P: No acute abdominal or pelvic pathology. Abdominal US with doppler evaluation: Complete abdominal sonography is performed. The gallbladder is surgically absent. No focal hepatic lesion is seen. The liver is not enlarged. Common bile duct is normal post cholecystectomy at 0.9 cm. No pancreatic abnormality is observed. There is no visible ascites. Abdominal aorta is normal in caliber, 2.4 cm AP dimension. The spleen is not enlarged and is homogeneous in texture. 9.4 cm in length. Renal cortical echogenicity pattern is normal and contours are smooth bilaterally. The right kidney measures 10.1 x 5.2 x 3.8 cm. Left renal dimensions of 10.2 x 5.3 x 5.6 cm. There is a 1.1 cm hyperechoic zone in the left renal cortex upper to mid pole level consistent with a small benign lipoma. This is visible on CT. There is a cyst in the upper pole cortex of the right kidney measuring 0.8 cm in greatest diameter. IMPRESSION: No significant morphologic abnormality. Post cholecystectomy. DOPPLER ASSESSMENT: Normal direction of venous velocity is observed in the portal veins and splenic vein. Portal vein is 10 mm in diameter and is not dilated. Venous velocity in the splenic vein is 26 cm/s and that in the portal vein 19 cm/s. The peak systolic flow velocity in the hepatic artery is normal and 86.7 cm/s. IMPRESSION: Normal hepatic and portal visceral Doppler findings. PROGNOSIS: Good ACTIVITY: As tolerated DIET: Consistent carb DISCHARGE PLAN: Home DISPOSITION: Home with 5d of keflex for UTI. DISCHARGE INSTRUCTIONS: 1. Home with 5d of keflex for UTI. ITEMS TO FOLLOWUP ON ON OUTPATIENT: 1. UTI resolution 2. Transaminitis DISCHARGE CONDITION: Stable TIME SPENT ON DISCHARGE: 33 minutes. Vital Signs/I&Os Vital Signs Date Time Temp Pulse Resp B/P (MAP) Pulse Ox O2 Delivery O2 Flow Rate FiO2 04/01/20 14:56 14 04/01/20 14:00 97.6 81 128/86 (100) 100 03/31/20 22:02 Room Air I&O- Last 24 Hours up to 6 AM 04/01/20 06:00 Intake Total 2490 ml Output Total 1650 ml Balance 840 ml Laboratory Data Labs 24H Laboratory Tests 2 03/31/20 20:54: Bedside Glucose (Misc Panel) 133H 04/01/20 05:44: Anion Gap 4L, Glomerular Filtration Rate 53.4, Calcium Level 8.2L, Total Bilirubin 0.4, Direct Bilirubin 0.1, Aspartate Amino Transf (AST/SGOT) 35, Alanine Aminotransferase (ALT/SGPT) 163H, Alkaline Phosphatase 102, Total Protein 6.0L, Albumin 2.8L, Albumin/Globulin Ratio 0.9L 04/01/20 06:21: Bedside Glucose (Misc Panel) 86 04/01/20 11:42: Bedside Glucose (Misc Panel) 123H CBC/BMP Laboratory Tests 04/01/20 05:44 FSBS Laboratory Tests Test 03/31/20 20:54 04/01/20 06:21 04/01/20 11:42 Range/Units Bedside Glucose (Misc Panel) 133 86 123 83-110 MG/DL Microbiology Microbiology 03/30/20 Blood Culture - Preliminary, Resulted No Growth after 48 hours. All Specime... 03/30/20 Blood Culture - Preliminary, Resulted No Growth after 48 hours. All Specime... 03/30/20 Urine Culture, Received Pending Discharge Medications Scheduled Amlodipine Besylate (Amlodipine Besylate) 10 Mg Tablet, 10 MG PO DAILY, (Reported) Anastrozole (Anastrozole) 1 Mg Tablet, 1 MG PO DAILY, (Reported) Ascorbic Acid (Vitamin C) 500 Mg Tablet, 1,000 MG PO DAILY, (Reported) TAKES AT NOON Aspirin (Aspir 81) 81 Mg Tab, 81 MG PO DAILY, (Reported) Atorvastatin Calcium (Lipitor) 80 Mg Tab, 80 MG PO QHS, (Reported) Bumetanide (Bumetanide) 1 Mg Tab, 2 MG PO DAILY, (Reported) Cephalexin (Cephalexin) 500 Mg Capsule, 500 MG PO QID Clopidogrel Bisulfate (Plavix) 75 Mg Tab, 75 MG PO DAILY, (Reported) Cyanocobalamin (Vitamin B-12) (B-12) 1,000 Mcg Tablet, 1,000 MCG PO DAILY, (Reported) TAKES AT NOON Ergocalciferol (Vitamin D2) (Drisdol) 1,250 Mcg Capsule, 50,000 UNITS PO QWEEK, (Reported) TUESDAYS Levetiracetam (Levetiracetam ER) 500 Mg Tab.er.24h, 500 MG PO BID, (Reported) Metformin HCl (Metformin HCl ER) 500 Mg Tab.er.24h, 500 MG PO BID, (Reported) Metoprolol Tartrate (Metoprolol Tartrate) 25 Mg Tablet, 25 MG PO BID, (Reported) Oxycodone HCl (Oxycodone HCl) 10 Mg Tablet, 10 MG PO TID, (Reported) Pantoprazole Sodium (Pantoprazole Sodium) 40 Mg Tablet.dr, 40 MG PO BID, (Reported) Potassium Chloride (Potassium Chloride) 10 Meq Tab.er.prt, 10 MEQ PO QPM, (Reported) Primidone (Primidone) 50 Mg Tablet, 50 MG PO BID, (Reported) Ropinirole HCl (Ropinirole HCl) 4 Mg Tablet, 4 MG PO BID, (Reported) Trazodone HCl (Trazodone HCl) 50 Mg Tablet, 100 MG PO QHS, (Reported) Scheduled PRN Albuterol Sulfate (Proventil Hfa) 6.7 Gm Hfa.aer.ad, 2 PUFF INH Q4H PRN for SOB/WHEEZING, (Reported) Docusate Sodium (Docusate Sodium) 100 Mg Capsule, 100 MG PO DAILY PRN for CONSTIPATION, (Reported) Nitroglycerin (Nitroglycerin) 0.4 Mg Sub, 0.4 MG SL Q5MP PRN for CHEST PAIN, (Reported) Nystatin (Nystop) 60 Gm Powder, 0 DOSE TOP BIDP PRN for RASH Allergies Coded Allergies: shellfish derived (Verified Allergy, Severe, ANAPHYLAXIS, 05/09/19) Sulfa (Sulfonamide Antibiotics) (Verified Allergy, Intermediate, rash,itch, 03/30/20) ciprofloxacin (Verified Allergy, Unknown, RASH, 03/30/20) gabapentin (Verified Allergy, Unknown, RASH, 03/30/20) latex (Verified Allergy, Unknown, 05/09/19) spironolactone (Verified Allergy, Unknown, RASH, 03/30/20) SOFI Inhibitors (Verified Adverse Reaction, Unknown, cough, 03/30/20) bupropion (Verified Adverse Reaction, Unknown, weight gain, 03/30/20) pentazocine (Verified Adverse Reaction, Unknown, AMS, 03/30/20) SALVADOR MCKEON MD Apr 01, 2020 17:29
--- NOTE | 2020-04-01 17:50 | IPNPDOC ---
Text Note Date of Service The patient was seen on 04/01/20. NOTE Subjective: Feels wlell, would rather go home tomorrow though when he can pick her up. -feels constipated GEN: NAD INTEGUMENT: not flushed/ not jaundice HEENT: NCAT, EOMI, MMM CVS: RRR, no mrg LUNGS: CTAB ABDOMEN: Normoactive bowel sounds, soft, NTND, mild bilateral flank pain on percussion EXTREMITIES: range of motion intact in all 4 extremities NEURO: CN 2-12 are grossly intact, grossly nonfocal PSYCH: AOx3 LABORATORY DATA: reviewed IMAGING: CT abdomen and pelvis " Impression: No acute abdominal or pelvic pathology. MICROBIOLOGY: 03/30/20 Urine Culture, Received Pending ASSESSMENT: Ms. Hickey is a 74-year-old with a history of CKD 3, Asthma ?, seizure disorder, anemia, chronic disease, TIA, liver cirrhosis, RA, CAD, NIDDM, sleep apnea, HTN, GERD, and breast cancer who is admitted for management a UTI and MATTHEW, and also has a notable transaminitis. PLAN: 1. Nausea, vomiting and diarrhea secondary to UTI/ Cystitis without herb sepsis -UA was positive for leukocyte esterase and WBCs, has a history of pansensitive E.coli, on keflex for 7d course -f/u UCx -s/p IVF -zofran PRN 2. Transaminitis: Has a history of cirrhosis, however without a chronic transaminitis and negative hepatitis serologies in the past -complete liver US with doppler was wnl - LFTs, transaminitis downtrended, to follow up with her PCP 3. Acute Renal Failure on CKD in the setting of N/V in the setting of a UTI, prerenal, improved after fluids -monitor daily BMP - avoid nephrotoxic meds 4. Hypokalemia and hypomagnesemia: 2/2 GI losses -replete PRN 5. Anemia of chronic disease. Her hemoglobin has dropped to about 11 from her baseline of 13 -iron panel c/w AOCI, f/u FOBT 6. Seizure disorder -levetiracetam 7. Asthma ? - Albuterol 8. Chronic CAD/ TIA - aspirin, atorvastatin, clopidogrel, nitroglycerin 9. NIDDM - diabetic diet / f/u accuchecks & A1C / hypoglycemia protocol / sliding scale insulin / hold metformin to reduce risk of lactic acidosis in the setting of renal impairment/ since she is already taking Metformin at home and has CAD the day time team may consider discharging her with empagliflozin to reduce the risk of CVD once her renal function has returned to baseline 10. Chronic Hypertension / Chronic diastolic congestive heart failure - amlodipine, metoprolol, bumetadine 11. GERD - PPI 12. Infiltrating ductal carcinoma - anastrozole 13. Sleep apnea with periodic limb movement disorder - own BIPAP 14. Obesity with BMI of 32.4 and co-existing sleep apnea and DM complicates care DVT PROPHYLAXIS: Heparin DISPOSITION: [facility] inpatient, home tomorrow when her can pick her up. VS,Fishbone, I+O VS, Fishbone, I+O Laboratory Tests 04/01/20 05:44 Vital Signs Date Time Temp Pulse Resp B/P (MAP) Pulse Ox O2 Delivery O2 Flow Rate FiO2 04/01/20 15:30 15 04/01/20 14:00 97.6 81 128/86 (100) 100 03/31/20 22:02 Room Air I&O- Last 24 Hours up to 6 AM 04/01/20 06:00 Intake Total 2490 ml Output Total 1650 ml Balance 840 ml SALVADOR MCKEON MD Apr 01, 2020 17:50
[2020-04-01] MEDS ORDERED: MIRALAX *UNIT DOSE* 17GM PACKET PO ONE (18:00)
[2020-04-01] MEDS: ATORVASTATIN 20 MG TAB PO SCH (21:42)
[2020-04-01] MEDS: POTASSIUM CHLORIDE 10 MEQ SR TABLET PO SCH (21:43)
[2020-04-01] MEDS: traZODone 100 MG TAB PO SCH (21:43)
[2020-04-01 22:00] VITALS: BP 122/66
[2020-04-02 02:00] VITALS: BP 143/70
[2020-04-02 06:00] VITALS: BP 141/70
[2020-04-02] MEDS: HEPARIN SOD (PORCINE) 5000UNITS/ML VIAL (J1644 PER 1000UNITS) SC SCH ×2 (06:04→13:57)
[2020-04-02 07:14] LABS: ALBUMIN 2.8 GM/DL (3.2-5.2); ALT/SGPT 122 U/L (12-78); BILIRUBIN,DIRECT 0.1 MG/DL (0.0-0.2); BILIRUBIN,TOTAL 0.4 MG/DL (0.2-1.0); BLOOD UREA NITROGEN 16 MG/DL (7-18); CALCIUM LEVEL 8.5 MG/DL (8.8-10.2); CARBON DIOXIDE LEVEL 30 MEQ/L (21-32); CHLORIDE LEVEL 104 MEQ/L (98-107); CREATININE FOR GFR 0.87 MG/DL (0.55-1.30); GLOMERULAR FILTRATION RATE > 60.0 (>39); GLUCOSE, FASTING 90 MG/DL (70-100); POTASSIUM SERUM 3.5 MEQ/L (3.5-5.1); SODIUM LEVEL 138 MEQ/L (136-145); TOTAL PROTEIN 6.3 GM/DL (6.4-8.2)
[2020-04-02] MEDS: HumaLOG INSULIN (NovoLOG) PER UNIT SC SCH ×2 (07:30→11:59)
[2020-04-02] MEDS ORDERED: VITAMIN D 50,000 UNITS CAPSULE (ERGOCALCIFEROL 1.25MG) PO SCH (09:00)
[2020-04-02] MEDS: ASCORBIC ACID 500 MG TAB PO SCH (09:57)
[2020-04-02] MEDS: ASPIRIN 81 MG ENTERIC TAB PO SCH (09:57)
[2020-04-02] MEDS: CYANOCOBALAMIN 500 MCG TAB PO SCH (09:57)
[2020-04-02] MEDS: PANTOPRAZOLE 40MG TAB (PROTONIX) PO SCH (09:57)
[2020-04-02] MEDS: levETIRAcetam **XR** 500 MG TABLET PO SCH (09:57)
[2020-04-02] MEDS: rOPINIRole 2MG TAB PO SCH (09:57)
[2020-04-02] MEDS: CLOPIDOGREL 75 MG TAB PO SCH (09:57)
[2020-04-02] MEDS: BUMETANIDE 1 MG TAB PO SCH (09:58)
[2020-04-02] MEDS: oxyCODONE 5MG TAB PO SCH (09:58)
[2020-04-02] MEDS: PRIMIDONE 50 MG TAB PO SCH (09:58)
[2020-04-02] MEDS: CEPHALEXIN 500 MG CAP PO SCH ×2 (09:58→13:56)
[2020-04-02] MEDS: amLODIPine 10 MG TAB PO SCH (10:00)
[2020-04-02 10:02] VITALS: BP 148/66
[2020-04-02] MEDS: METOPROLOL TART 25 MG TABLET PO SCH (10:02)
[2020-04-02] MEDS: NS 1,000 ML IV SCH (10:10)
[2020-04-02] MEDS ORDERED: POTASSIUM CHLORIDE 10 MEQ SR TABLET PO ONE (13:00)
[2020-04-02] MEDS ORDERED: MAGNESIUM CHLORIDE 64 MG TABCR (SLO MAG) PO ONE (15:00)
== END 2020-04-02 14:47 | disposition home or self-care (01) | DRG 683 ==
LOC: M ED 11:12 → M ED INP 15:01 → ENRESERV 15:52 → M MSPAV 16:31
PROVIDERS: ADMIT Internal Medicine; ATTEND Internal Medicine
DX: N17.9 Acute kidney failure, unspecified (principal); N39.0 Urinary tract infection, site not specified; I13.0 Hypertensive heart and chronic kidney disease with heart failure and stage 1 through stage 4 chronic kidney disease, or unspecified chronic kidney disease; I50.32 Chronic diastolic (congestive) heart failure; N18.3 Chronic kidney disease, stage 3 (moderate); K74.60 Unspecified cirrhosis of liver; R74.0 Nonspecific elevation of levels of transaminase and lactic acid dehydrogenase [LDH]; J45.909 Unspecified asthma, uncomplicated; I25.10 Atherosclerotic heart disease of native coronary artery without angina pectoris; E11.9 Type 2 diabetes mellitus without complications; G40.909 Epilepsy, unspecified, not intractable, without status epilepticus; M06.9 Rheumatoid arthritis, unspecified; D63.1 Anemia in chronic kidney disease; G47.30 Sleep apnea, unspecified; K21.9 Gastro-esophageal reflux disease without esophagitis; K57.30 Diverticulosis of large intestine without perforation or abscess without bleeding; Z79.899 Other long term (current) drug therapy; Z79.82 Long term (current) use of aspirin; Z88.8 Allergy status to other drugs, medicaments and biological substances; Z91.040 Latex allergy status; Z91.013 Allergy to seafood; Z88.2 Allergy status to sulfonamides; Z96.651 Presence of right artificial knee joint; Z96.652 Presence of left artificial knee joint; E66.9 Obesity, unspecified; Z68.32 Body mass index [BMI] 32.0-32.9, adult; E87.6 Hypokalemia; E83.42 Hypomagnesemia

== ENCOUNTER 2020-04-10 10:42 | Emergency (ER) | payer MEDICARE, OTHER ==
[~2020-04-10] VITALS: Ht 152.4 cm; Wt 77.3 kg
[~2020-04-10 10:42] MED LIST changes: +AMLO10TA5 PO; +B-12100021 PO; +CEPH500C PO; +DOCU100C16 PO; +METF-838 PO; +METO25TA4 PO; +NYST10006 TOP; +PRIM250T8 PO; +PRIM50TA6 PO; +PROV108A INH; +TRAZ1TAB10 PO; +TRAZ1TAB11 PO
[2020-04-10 11:21] LABS: BASO % 0.1 % (0.0-1.0); EOS # 0.4 10^3/uL (0.0-0.5); EOS % 5.7 % (0.0-3.0); HEMATOCRIT 32.7 % (36.0-47.0); HEMOGLOBIN 10.3 g/dl (12.0-15.5); LYMPH # 1.3 10^3/uL (1.5-5.0); LYMPH % 16.7 % (24.0-44.0); MEAN CORPUSCULAR HEMOGLOBIN 28.1 pg (27.0-33.0); MEAN CORPUSCULAR HGB CONC 31.5 g/dl (32.0-36.5); MEAN CORPUSCULAR VOLUME 89.3 fl (80.0-96.0); MONO # 0.7 10^3/uL (0.0-0.8); MONO % 9.3 % (0.0-5.0); NEUTROPHILS # 5.3 10^3/uL (1.5-8.5); NEUTROPHILS % 67.9 % (36.0-66.0); PLATELET COUNT, AUTOMATED 211 10^3/uL (150-450); RED BLOOD COUNT 3.66 10^6/uL (4.00-5.40); WHITE BLOOD COUNT 7.8 10^3/uL (4.0-10.0)
--- NOTE | 2020-04-10 11:38 | REP ---
CT BRAIN WITHOUT CONTRAST: HISTORY: CVA. Comparison brain CT study March 01, 2017. CT FINDINGS: Digital preliminary photography coordinator radiograph is unremarkable. The patient is edentulous. No intraorbital abnormality is seen. Vascular calcification is again noted in the distal vertebral and distal internal carotid arteries. No bony calvarial lesion is seen. Visualized paranasal sinuses are clear. On soft tissue window settings, there is minimal generalized volume loss. There is no evidence of hemorrhage or acute infarction. Mitchell-white differentiation pattern is normal above and below the tentorium. No extra-axial fluid collection or mass is seen. IMPRESSION: Mild generalized volume loss. Vascular calcification. No acute intracranial abnormality. Electronically Signed by Jatin Paul MD 04/10/2020 02:57 P
[2020-04-10 11:40] LABS: INR 1.22; PROTHROMBIN TIME 15.1 SECONDS (11.8-14.0)
[2020-04-10 11:41] LABS: PARTIAL THROMBOPLASTIN TIME 32.2 SECONDS (25.0-38.4)
--- NOTE | 2020-04-10 11:41 | REP ---
Portable chest x-ray: Single view. History: CVA. Comparison chest x-ray: April 10, 2017. Findings: A bipolar pacemaker is been inserted in the interval since the 2017 prior study. Monitoring electrodes are seen. There is an orthopedic anchor in the right shoulder. The heart is not enlarged. Lungs are well inflated and clear. The aorta is tortuous. Pleural angles are sharp. Pulmonary vasculature is not increased. Impression: No acute cardiopulmonary disease. Pacemaker in place. Electronically Signed by Jatin Paul MD 04/10/2020 11:33 A
[2020-04-10 11:58] LABS: ALBUMIN 3.1 GM/DL (3.2-5.2); ALT/SGPT 37 U/L (12-78); BILIRUBIN,DIRECT 0.1 MG/DL (0.0-0.2); BILIRUBIN,TOTAL 0.3 MG/DL (0.2-1.0); BLOOD UREA NITROGEN 27 MG/DL (7-18); CALCIUM LEVEL 8.6 MG/DL (8.8-10.2); CARBON DIOXIDE LEVEL 28 MEQ/L (21-32); CHLORIDE LEVEL 105 MEQ/L (98-107); CK-MB VALUE MASS < 1.0 NG/ML (<3.6); CPK CREATINE PHOSPHOKINASE 43 U/L (26-192); CREATININE FOR GFR 1.18 MG/DL (0.55-1.30); GLOMERULAR FILTRATION RATE 47.7 (>39); GLUCOSE, FASTING 100 MG/DL (70-100); MB/CK RELATIVE INDEX 2.33 (< OR =4); POTASSIUM SERUM 3.4 MEQ/L (3.5-5.1); SODIUM LEVEL 141 MEQ/L (136-145); TOTAL PROTEIN 6.5 GM/DL (6.4-8.2); TROPONIN I < 0.02 NG/ML (< 0.10)
[2020-04-10 12:03] LABS: MAGNESIUM LEVEL 1.2 MG/DL (1.8-2.4)
--- NOTE | 2020-04-10 12:33 | REP ---
Right lower extremity Duplex Doppler venous ultrasound: Real time compression and duplex Doppler interrogation of the right lower extremity deep venous system is performed. The right common femoral, superficial femoral and popliteal veins are fully compressible with transducer pressure and demonstrate normal spontaneous and phasic flow, without evidence of deep venous thrombosis. Impression: No evidence of deep venous thrombosis of the right lower extremity femoral popliteal venous system. Electronically Signed by Aayush Mitchell MD 04/10/2020 12:24 P
[2020-04-10] MEDS ORDERED: oxyCODONE 5MG TAB PO ONE (12:45)
[2020-04-10] MEDS ORDERED: MAG SULF 1GM/100ML (MAG RUN) 1 GM in IV 1 EA IV ONE ×2 (14:00→15:15)
--- NOTE | 2020-04-10 14:53 | REP ---
Pelvis right hip: Three views. History: Pain. Findings: AP view of the pelvis and AP and frog-leg views of the right hip show osteoarthritic spurring bilaterally. There is diffuse osteopenia. No fracture or subluxation is seen. No sacral fractures noted. There are surgical clips in the central pelvis. Impression: Bilateral hip joint osteoarthritis. No traumatic abnormality noted. Electronically Signed by Jatin Paul MD 04/10/2020 02:44 P
[2020-04-10] MEDS ORDERED: MAGN400T2 PO (15:05)
[2020-04-10] MEDS ORDERED: POTASSIUM CHLORIDE 10 MEQ SR TABLET PO ONE (15:15)
[2020-04-10 16:00] VITALS: BP 142/66
--- NOTE | 2020-04-10 20:24 | ECGEPIP ---
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
== END 2020-04-10 16:25 | disposition home or self-care (01) ==
LOC: EDBD 10:42 → M ED 10:42
DX: E83.42 Hypomagnesemia (principal); E87.6 Hypokalemia; M16.0 Bilateral primary osteoarthritis of hip; K21.9 Gastro-esophageal reflux disease without esophagitis; E11.9 Type 2 diabetes mellitus without complications; Z79.51 Long term (current) use of inhaled steroids; Z79.82 Long term (current) use of aspirin; Z79.84 Long term (current) use of oral hypoglycemic drugs; Z79.899 Other long term (current) drug therapy; Z86.79 Personal history of other diseases of the circulatory system; Z88.1 Allergy status to other antibiotic agents; Z88.2 Allergy status to sulfonamides; Z88.8 Allergy status to other drugs, medicaments and biological substances; Z91.013 Allergy to seafood; Z95.0 Presence of cardiac pacemaker
CPT/HCPCS: 36415; 70450; 71045; 73502; 80047; 80048; 80076; 81001; 82550; 82553; 83735; 84484; 85025; 85610; 85730; 86850; 86900; 86901; 87040; 93005; 93971; 96361; 96365; 96366; 99285; J3475

== ENCOUNTER 2020-04-24 14:29 | Emergency (ER) | payer MEDICARE, OTHER ==
[~2020-04-24] VITALS: Ht 154.9 cm; Wt 74.7 kg
[~2020-04-24 14:29] MED LIST changes: -AMLO10TA5 PO; +AMLO1TAB24 PO; +AMLO1TAB25 PO; -AMLO5TAB6 PO; -ASPI81TA85 PO; +ASPI81TA86 PO; +MAGN400T2 PO; +PANT40TA29 PO; -PANT40TA3 PO; -VITA1TAB23 PO; +VITA250T20 PO
[2020-04-24] MEDS ORDERED: LIDOCAINE 2% 5ML JELLY UROJET TOP ONE (15:00)
[2020-04-24] MEDS ORDERED: NS 1,000 ML IV ONE (15:45)
[2020-04-24 15:54] LABS: BASO % 0.4 % (0.0-1.0); EOS # 0.4 10^3/uL (0.0-0.5); EOS % 3.9 % (0.0-3.0); HEMATOCRIT 35.4 % (36.0-47.0); HEMOGLOBIN 11.1 g/dl (12.0-15.5); LYMPH # 1.4 10^3/uL (1.5-5.0); LYMPH % 13.1 % (24.0-44.0); MEAN CORPUSCULAR HEMOGLOBIN 28.5 pg (27.0-33.0); MEAN CORPUSCULAR HGB CONC 31.4 g/dl (32.0-36.5); MEAN CORPUSCULAR VOLUME 90.8 fl (80.0-96.0); MONO # 0.7 10^3/uL (0.0-0.8); MONO % 6.2 % (0.0-5.0); NEUTROPHILS # 8.1 10^3/uL (1.5-8.5); NEUTROPHILS % 76.1 % (36.0-66.0); PLATELET COUNT, AUTOMATED 265 10^3/uL (150-450); WHITE BLOOD COUNT 10.6 10^3/uL (4.0-10.0)
[2020-04-24 16:16] LABS: CALCIUM LEVEL 9.4 MG/DL (8.8-10.2); CREATININE FOR GFR 2.1 MG/DL (0.55-1.30); GLOMERULAR FILTRATION RATE 24.5 (>39)
[2020-04-24] MEDS ORDERED: KEFL500C17 PO (17:43)
[2020-04-24] MEDS ORDERED: PYRI1TAB5 PO (17:44)
[2020-04-24] MEDS ORDERED: CEPHALEXIN 500 MG CAP PO ONE (17:45)
[2020-04-24] MEDS ORDERED: PHENAZOPYRIDINE 100 MG TAB PO ONE (17:45)
[2020-04-24 18:00] VITALS: BP 136/72
--- NOTE | 2020-04-25 02:43 | REP ---
REASON: Urinary retention and flank pain. COMPARISON: 03/30/2020 Prior exam showed no acute disease. The lung bases are clear and unchanged. Limited evaluation of the solid intra-abdominal organs shows no gross abnormalities or significant changes from the prior exam. Limited evaluation of the pancreas, adrenal glands, and kidneys show no gross abnormalities or significant changes from the prior exam. Limited evaluation of the abdominal aorta and para-aortic regions shows no gross abnormalities or significant changes from the prior exam. Limited evaluation of the intra-abdominal and intrapelvic bowel loops and their mesenteries shows no gross abnormalities or significant changes from the prior exam. A few gas-filled small bowel loops are again seen in the abdomen and pelvis, status quo. There is a Tam balloon seen in the urinary bladder, decompressing it. No free fluid or free air is seen in the abdomen or pelvis. Bone window technique throughout the examination shows no change in appearance of the osseous structures. Chronic spinal, hip, and sacroiliac joint degenerative changes are noted, status quo. IMPRESSION: No evidence of significant disease or significant change compared to the prior exam. Exam findings and limitations as described above. A small bowel ileus is suspected, but it is unchanged from 03/30/2020. There is no intestinal obstruction. Electronically Signed by Bran Campuzano DO 04/25/2020 11:26 A
== END 2020-04-24 18:04 | disposition home or self-care (01) ==
LOC: M ED 14:29
DX: N39.0 Urinary tract infection, site not specified (principal); R79.89 Other specified abnormal findings of blood chemistry; Z79.82 Long term (current) use of aspirin; Z79.84 Long term (current) use of oral hypoglycemic drugs; Z79.899 Other long term (current) drug therapy; Z79.891 Long term (current) use of opiate analgesic; E11.9 Type 2 diabetes mellitus without complications; I10 Essential (primary) hypertension; Z86.79 Personal history of other diseases of the circulatory system; Z87.442 Personal history of urinary calculi; Z88.2 Allergy status to sulfonamides; Z88.8 Allergy status to other drugs, medicaments and biological substances; Z90.49 Acquired absence of other specified parts of digestive tract; Z91.013 Allergy to seafood; Z91.040 Latex allergy status

== ENCOUNTER → 2020-04-29 | Outpatient (REF) | payer MEDICARE, OTHER ==
[~2020-04-29] MED LIST changes: +KEFL500C17 PO; +PYRI1TAB5 PO
== END ==
LOC: M LAB REF 19:20
PROVIDERS: ATTEND Nurse Practitioner Family
DX: R19.7 Diarrhea, unspecified (principal)

== ENCOUNTER → 2020-05-06 | Outpatient (CLI) | payer MEDICARE, OTHER ==
[~2020-05-06] MED LIST changes: +AMLO10TA5 PO; -AMLO1TAB24 PO; -AMLO1TAB25 PO; +AMLO5TAB6 PO; +ASPI81TA85 PO; -ASPI81TA86 PO; -PANT40TA29 PO; +PANT40TA3 PO; +VITA1TAB23 PO; -VITA250T20 PO
[2020-05-06 12:34] LABS: CALCIUM LEVEL 9.2 MG/DL (8.8-10.2); CREATININE FOR GFR 1.32 MG/DL (0.55-1.30); GLOMERULAR FILTRATION RATE 41.9 (>39); MAGNESIUM LEVEL 1.6 MG/DL (1.8-2.4); POTASSIUM SERUM 3.9 MEQ/L (3.5-5.1)
== END ==
LOC: M WUC 08:55
PROVIDERS: ATTEND Nurse Practitioner Family
DX: E83.42 Hypomagnesemia (principal)

== ENCOUNTER → 2020-05-06 | Outpatient (CLI) | payer MEDICARE, OTHER ==
--- NOTE | 2020-05-07 06:59 | ECWPNPC ---
PATIENT NAME: MAGI MCKEON : 1945 GENDER: FEMALE VISIT DATE: 05/06/2020 DISCHARGE DATE: 05/06/20 1144 VISIT LOCKED DATE TIME: PHYSICIAN: ADRIAN HEMPHILL RESOURCE: ADRIAN HEMPHILL REASON FOR APPOINTMENT 1. RHEUMATOID ARTHRITIS/SHOULDER PAIN/LOW BACK PAIN HISTORY OF PRESENT ILLNESS GENERAL: HERE FOR FOLLOW-UP OF CHRONIC LOW BACK AND NECK PAIN. THIS IS A MEDICATION MANAGEMENT VISIT. HAS HAD A LOT OF MEDICAL ISSUES LATELY. WAS HOSPITALIZED RECENTLY FOR UTI AND RENAL INSUFFICIENCY. FOLLOWS WITH NEPHROLOGY. ALSO HAS HAD SIGNIFICANT SHOULDER PAIN AND HAS NOT RESPONDED WELL TO RECENT SURGERIES ON HER RIGHT SHOULDER. HISTORY OF RHEUMATOID ARTHRITIS. TODAY WE DISCUSSED HER MEDICATION ROUTINE. CURRENTLY SHE IS USING OXYCODONE 10 MG ONE IN THE MORNING AND 2 AT NIGHT ROUTINELY. INFORMED HER THAT THIS IS A HIGH-DOSE AND COULD BE AFFECTING HER KIDNEYS AND LIVER. IT WOULD BE AT MY RECOMMENDATION THAT SHE REDUCE THIS TO HALF A TABLET TO 1 WHOLE TABLET UP TO TWICE DAILY. WE COULD WORK WITH DIFFERENT MEDICATIONS, POSSIBLY WITH HER. -. FALL RISK SCREENING: SCREENING :NO FALLS REPORTED IN THE LAST YEAR PAIN SCREENING: PATIENT HAS A COMPLAINT OF ACUTE OR CHRONIC PAIN :YES LOCATION OF PAIN:RIGHT SHOULDER, LOW BACK INTENSITY OF PAIN (SCALE OF 1 TO 10):4 WHAT DOES YOUR PAIN FEEL LIKE:ACHING, CONTINOUS, SORE NURSING NOTE: -. PAIN CENTER INTAKE QUESTIONS: DO YOU HAVE A HISTORY OF MRSA? :YES WITH COLON RESECTION YEARS AGO DO YOU TAKE A BLOOD THINNERS? :YES PLAVIX DO YOU HAVE ANY BLEEDING DISORDERS? :NO ANY NEW NUMBNESS OR WEAKNESS IN YOUR LEGS OR ARMS? :NO ANY PACEMAKER,DEFIBRILLATOR, OR DORSAL COLUMN STIMULATOR? :YES PACEMAKER DO YOU HAVE ANY RASHES OR OPEN SORES? :NO ARE YOU ALLERGIC TO IV DYE? :NO ARE YOU DIABETIC? :YES MANAGED WITH ORAL MEDS ANY NEW PROBLEMS WITH YOUR MEDICATIONS? :NO HAVE YOU RECEIVED A VACCINE IN THE PAST 30 DAYS? :NO DO YOU PLAN TO RECEIVE A VACCINE IN THE NEXT 21 DAYS? :NO DO YOU NEED ANY PRESCRIPTION? :NO DO YOU TAKE ANY IMMUNOSUPPRESSIVE MEDICATIONS? :NO IS THERE A CHANCE YOU COULD BE ? :NO ARE YOU BREAST FEEDING? :NO CURRENT MEDICATIONS TAKING BUMETANIDE 1 MG TABLET 3 TABLETS ORALLY DAILY TAKING VITAMIN D (ERGOCALCIFEROL) 10803 UNIT CAPSULE 1 CAPSULE ORALLY WEEKLY TAKING ROPINIROLE HCL 4 MG TABLET 2 TABLET ORAL DAILY TAKING METFORMIN HCL ER 500 MG TABLET EXTENDED RELEASE 24 HOUR 2 TAB ORALLY ONCE A DAY TAKING ATORVASTATIN CALCIUM 80 MG TABLET 1 TABLET ORALLY ONCE A DAY TAKING PROVENTIL HFA 108 (90 BASE) MCG/ACT AEROSOL SOLUTION 2 PUFFS NEEDED INHALATION EVERY 4 HRS TAKING NITROLINGUAL 0.4 MG/DOSE 1 TRANSLINGUAL DIRECTED TAKING POTASSIUM CHLORIDE CR 10MEQ 1 CAP ORALLY DAILY TAKING AMLODIPINE BESYLATE 5 MG TABLET 2 TABS ORALLY DAILY TAKING VITAMIN D3 1000 UNIT CAPSULE ORALLY DAILY TAKING PLAVIX 75 MG TABLET ORALLY DAILY TAKING ANASTROZOLE 1 MG TABLET 1 TABLET ORALLY ONCE A DAY TAKING ASPIR-81 81 MG TABLET DELAYED RELEASE 1 TABLET ORALLY ONCE A DAY TAKING LEVETIRACETAM ER 500 MG TABLET EXTENDED RELEASE 24 HOUR 1 TAB ORALLY TWICE DAILY TAKING MAY USE - - METROLAZOLE 2.5MG DAILY TAKING VITAMIN C PLUS 1000 MG TABLET ORALLY TAKING VITAMIN B-12 1000 MCG TABLET 1 TABLET ORALLY ONCE A DAY TAKING MAY HAVE IRON INFUSIONS INTRAVENOUSLY NEEDED, NOTES: LAST ON February TAKING BISOPROLOL FUMARATE 5 MG TABLET 0.5 ORALLY ONCE A DAY TAKING SPIRONOLACTONE 25 MG TABLET 1 TABLET ORALLY ONCE A DAY TAKING PANTOPRAZOLE SODIUM 40 MG TABLET DELAYED RELEASE 1 CAP ORALLY BID TAKING OXYCODONE HCL 10 MG TABLET 1 TO 2 TABLET NEEDED ORALLY Q8H PRN MDD3 TAKING VITAMIN C 1000 MG TABLET 2 TABLET ORALLY ONCE A DAY TAKING TRAZODONE HCL 50 MG TABLET 1 TABLET AT BEDTIME NEEDED ORALLY ONCE A DAY NOT-TAKING MAGNESIUM 300 MG CAPSULE 1 CAPSULE WITH A MEAL ORALLY THREE TIMES DAILY NOT-TAKING VENLAFAXINE HCL ER 150 MG TABLET EXTENDED RELEASE 24 HOUR 1 TABLET WITH FOOD ORALLY ONCE A DAY NOT-TAKING GABAPENTIN 100 MG CAPSULE 3-4 TABS ORALLY BEFORE BEDTIME MEDICATION LIST REVIEWED AND RECONCILED WITH THE PATIENT PAST MEDICAL HISTORY CATARACTS BILATERAL ANEMIA SWELLING IN THE LEGS ASTHMA COPD SLEEP APNEA ANGINA CHF CAD HTN CIRRHOSIS BOWEL PROBLEMS TYPE 2 DIABETES END STAGE RENAL DISEASE 30% FUNCTIONING RA OSTEOARTHRITIS DEMENTIA SHORT TERM MEMORY ISSUES NEUROPATHY PVD DEPRESSION SKIN CANCER BREAST CANCER SUSPECTED TIA'S ORTHOSTATIC HYPOTENSION TORN ROTATOR CUFF RIGHT ARTHRITIS IN LEFT SHOULDER PACEMAKER- 11/2018 ALLERGIES CIPRO: CONFUSION SOFI INHIBITOR (FOR ALLERGIES USE ONLY): COUGH WELLBUTRIN SR: WEIGHT GAIN SHELLFISH: ANAPHYLAXIS BEE STINGS: SWELLING LATEX: RASH SULFA (FOR ALLERGY USE ONLY): HIVES SURGICAL HISTORY CHOLECYSTECTOMY 1966 TUMOR ON LEG REMOVED 1982 KNEE REPLACEMENT 2008 KNEE REPLACEMENT 2011 COLON RESECTION 2006 HERNIA 2016 CARPAL BELLA LEFT 2018 PACEMAKER 11/2018 UPPER ENDOSCOPY 06/2019 RIGHT SHOULDER REPAIR 12/2019 FAMILY HISTORY MOTHER: DIAGNOSED WITH HYPERTENSION, DIABETES, UNSPECIFIED CEREBRAL ARTERY OCCLUSION WITH CEREBRAL INFARCTION DAUGHTER(S): UNSPECIFIED CEREBRAL ARTERY OCCLUSION WITH CEREBRAL INFARCTION MATERNAL GRAND FATHER: UNSPECIFIED CEREBRAL ARTERY OCCLUSION WITH CEREBRAL INFARCTION 3 SON(S) , 2 DAUGHTER(S) . SOCIAL HISTORY GENERAL: TOBACCO USE ARE YOU A: NONSMOKER. LATEX QUESTIONNAIRE LATEX ALLERGY : HAVE YOU EVER DEVELOPED ANY TYPE OF REACTION AFTER HANDLING LATEX PRODUCTS SUCH RUBBER GLOVES, CONDOMS, DIAPHRAGMS, BALLOONS, SOCKS, OR UNDERWEAR?NO LATEX ALLERGY : HAVE YOU EVER DEVELOPED ANY TYPE OF REACTION DURING OR AFTER DENTAL APPOINTMENT, VAGINAL/RECTAL EXAMINATION, SURGICAL PROCEDURE, OR ANY OTHER EXPOSURE?NO LATEX RISK : HAVE YOU EVER HAD ANY DIFFICULTY BREATHING OR HIVES AFTER EATING OR HANDLING ANY FRUITS, OR VEGETABLES; SUCH KIWI, BANANAS, STONE FRUITS, OR CHESTNUTSNO LATEX RISK : DO YOU HAVE A PREVIOUS PERSONAL HISTORY OF MORE THAN NINE SURGERIES, SPINA BIFIDA, OR REPEATED CATHERIZATIONS? NO LATEX RISK : ARE YOU FREQUENTLY EXPOSED TO LATEX PRODUCTS IN YOUR OCCUPATION?NO DATE ASKED : 05/06/2020 ALCOHOL SCREENING DID YOU HAVE A DRINK CONTAINING ALCOHOL IN THE PAST YEAR?YES HOW OFTEN DID YOU HAVE SIX OR MORE DRINKS ON ONE OCCASION IN THE PAST YEAR?NEVER (0 POINTS) HOW MANY DRINKS DID YOU HAVE ON A TYPICAL DAY WHEN YOU WERE DRINKING IN THE PAST YEAR?1 OR 2 (0 POINTS) HOW OFTEN DID YOU HAVE A DRINK CONTAINING ALCOHOL IN THE PAST YEAR?MONTHLY OR LESS (1 POINT) POINTS1 INTERPRETATIONNEGATIVE CAFFEINE CAFFEINE USE?NO YARSANI [id number] MOSQUE NO VOODOO BELIEFS THAT WOULD IMPACT HEALTH CARE. LANGUAGE LANGUAGES SPOKEN:AMERICAN LEARNING BARRIERS / SPECIAL NEEDS ORIENTED TO PLAN OF CARE: PATIENT, PAIN MANAGEMENT PATIENT, ORIENTED TO PLAN OF CARE: PATIENT, PAIN MANAGEMENT PATIENT. DIET: LOW CARB. EXERCISE: WAS SWIMMING DAILY BEFORE HOSPITALIZATION. MARITAL STATUS: . OTHERS AT HOME: SPOUSE. NEW PATIENT PAIN DIARY TODAY'S VISIT NOTES, FROM 0-10, WHAT LEVEL IS YOUR PAIN TODAY? 0. PAIN CLINIC PFS, CLERGY, PUBLIC HEALTH REFERRALS HAS THE PATIENT BEEN EDUCATED REGARDING HIS/HER PLAN OF CARE?YES HAS THE PATIENT BEEN EDUCATED REGARDING PAIN, THE RISK FOR PAIN, THE IMPORTANCE OF EFFECTIVE PAIN MANAGEMENT, AND THE PAIN ASSESSMENT PROCESS?YES HOUSING: LIVES IN [place] IN WINTER AND HAS PAIN CLINIC IN [place] TOO. ADVANCE DIRECTIVE ADVANCE DIRECTIVE DISCUSSED WITH PATIENT:YES PT STATES THAT SHE DOES NOT HAVE HCP AND DECLINES ASSISTANCE WITH PAPERWORK. HOSPITALIZATION/MAJOR DIAGNOSTIC PROCEDURE SUSPECTED TIA 01/2017 FALL/UTI 02/2017 MINI STROKE- PACEMAKER INSERTED 11/14/18 HOSPITALIZED FOR UTI AND KIDNEY INFECTION-FAILURE 03/2020 REVIEW OF SYSTEMS CONSTITUTIONAL: ANY RECENT FEVER NO . CHILLS NO . WEIGHT CHANGE OF UNKNOWN REASONS NO . GASTROENTEROLOGY: NEW UNEXPLAINABLE CHANGES IN BOWEL CONTROL NO . CONSTIPATION NO . GENITOURINARY: ANY NEW CHANGE IN BLADDER CONTROL? NO . NEUROLOGY: NEW ONSET DIZZINESS OR NEUROLOGICAL CHANGES NOT MENTIONED NO . NEW NUMBNESS OR PAIN PATTERNS NOT MENTIONED AND PERTINENT TO TODAY'S VISIT NO . CARDIOLOGY: NEW CHEST PRESSURE NO . NEW CHEST PAIN NO . RESPIRATORY: UNEXPLAINABLE COUGH NO . NEW SHORTNESS OF BREATH NO . VITAL SIGNS WT 164.4 LBS, HT 60", BMI 32.10 INDEX, BP 143/63 MM HG, HR 85 /MIN, RR 16 /MIN, TEMP 97.2 F, OXYGEN SAT % 97%, SAFE IN ENV? (Y/N) Y, NA INITIALS AW 1058, REVIEWED BY: ANNIA. EXAMINATION GENERAL EXAMINATION: GENERALAWAKE,ALERT ,PLEASANT . PSYCHAFFECT NORMAL . LUNGS:LUNG JAIMES ARE CLEAR TO AUSCULTATION BILATERALLY. GOOD MOVEMENT OF AIR . HEART:S1, S2 IN A REGULAR RATE AND RHYTHM. NO SIGNIFICANT MURMURS, RUBS OR GALLOPS NOTED . ASSESSMENTS GENERALIZED JOINT PAIN - M25.50 (PRIMARY) CHRONIC PRESCRIPTION OPIATE USE - Z79.891 TREATMENT GENERALIZED JOINT PAIN NOTES: ISTOP REGISTRY REVIEWED AND DEMONSTRATES COMPLLIANCE. (REF # ) BRINGS IN MEDICATIONS WHICH IS APPROPRIATE FOR WHAT WAS DISPENSED. RECENT URINE TOXICOLOGY REVIEWED. NO UNAUTHORIZED MEDICATIONS. NO ILLICIT SUBSTANCES AND PRESCRIBED MEDICATIONS WERE PRESENT. URINE TOXICOLOGY TODAY , RISKS OF NARCOTIC/OPIOD MEDICATIONS INCLUDES BUT IS NOT LIMITED TO RISK OF DEPENDANCE/DEVELOPMENT OF ADDICTION, MOOD DISTURBANCE AND DEPRESSION, OSTEOPOROSIS, HORMONAL AND LABIDAL CHANGES, RESPIRATORY DEPRESSION AND . PATIENT IS ADVISED NOT TO DRIVE OR DRINK ALCOHOL WHILE ON THESE MEDICATIONS REDUCE OXYCODONE 10 MG TO HALF TABLET TO 1 WHOLE TAB NEEDED FOR SEVERE PAIN WITH MAXIMUM DAILY DOSE OF 2 TABLETS. ADVISED TO REVIEW OXYCODONE WITH NEPHROLOGY. FOLLOW-UP AT PAIN CLINIC IN 6-8 WEEKS. BRING MEDICATION TO ALL APPOINTMENTS AT PAIN CLINIC. PREVENTIVE MEDICINE PAIN CLINIC TEACHING: THE PATIENT HAS BEEN EDUCATED REGARDING PAIN, THE RISK FOR PAIN, THE IMPORTANCE OF EFFECTIVE PAIN MANAGEMENT, AND THE PAIN ASSESSMENT PROCESS. : REVIEWED VERBAL INSTRUCTIONS WITH PT AND PLAN OF CARE FOR REDUCING OXYCODONE TO MAX DAILY DOSE OF 2. PT ACKNOWLEDGES UNDERSTANDING, DS DISPOSITION & COMMUNICATION FOLLOW UP 2 MONTHS (REASON: MEDICATION MANAGEMENT/GENERALIZED JOINT PAIN) ELECTRONICALLY SIGNED BY FABIOLA RICO ON 05/06/2020 AT 03:09 PM EDT DISCLAIMER : THIS IS A VISIT SUMMARY EXTRACTED FROM THE [employer] CHART. IT IS NOT A COPY OF THE [facility] PROGRESS NOTE. EDY
== END ==
LOC: M PAIN 11:00
PROVIDERS: ATTEND Nurse Practitioner Family
DX: M25.50 Pain in unspecified joint (principal); G89.29 Other chronic pain; E83.42 Hypomagnesemia; J44.9 Chronic obstructive pulmonary disease, unspecified; G47.30 Sleep apnea, unspecified; I10 Essential (primary) hypertension; E11.40 Type 2 diabetes mellitus with diabetic neuropathy, unspecified; F03.90 Unspecified dementia, unspecified severity, without behavioral disturbance, psychotic disturbance, mood disturbance, and anxiety; Z86.59 Personal history of other mental and behavioral disorders; Z95.0 Presence of cardiac pacemaker; Z85.3 Personal history of malignant neoplasm of breast; Z88.1 Allergy status to other antibiotic agents; Z88.2 Allergy status to sulfonamides; Z88.8 Allergy status to other drugs, medicaments and biological substances; Z91.013 Allergy to seafood; Z91.030 Bee allergy status; Z91.040 Latex allergy status; Z79.82 Long term (current) use of aspirin; Z79.84 Long term (current) use of oral hypoglycemic drugs; Z79.899 Other long term (current) drug therapy
CPT/HCPCS: 36415; 80048; 83735; G0463

== ENCOUNTER 2020-05-18 09:36 | Emergency (ER) | payer MEDICARE, OTHER ==
[~2020-05-18 09:36] MED LIST changes: +ACETAMINOPHEN 325 MG TAB As Ordered ONE; -AMLO10TA5 PO; +AMLO1TAB24 PO; +AMLO1TAB25 PO; -AMLO5TAB6 PO; -ASPI81TA85 PO; +ASPI81TA86 PO; +PANT40TA29 PO; -PANT40TA3 PO; -VITA1TAB23 PO; +VITA250T20 PO
[2020-05-18] MEDS ORDERED: oxyCODONE 5MG TAB ONE (09:37)
[2020-05-18] MEDS ORDERED: POTASSIUM CHLORIDE 10 MEQ SR TABLET ONE (09:37)
[2020-05-18] MEDS ORDERED: ACETAMINOPHEN 325 MG TAB ONE (09:37)
[2020-05-18] MEDS ORDERED: LIDOCAINE 5% (LIDODERM) PATCH ONE (09:37)
[2020-05-18] MEDS ORDERED: oxyCODONE 5MG TAB As Ordered ONE (09:54)
[2020-05-18] MEDS ORDERED: LIDOCAINE 5% (LIDODERM) PATCH As Ordered ONE (09:59)
[2020-05-18] MEDS ORDERED: POTASSIUM CHLORIDE 10 MEQ SR TABLET As Ordered ONE (11:24)
[2020-06-23 21:36] LABS: BASO % 0.2 % (0.0-1.0); EOS # 0.3 10^3/uL (0.0-0.5); EOS % 3.3 % (0.0-3.0); HEMATOCRIT 36.2 % (36.0-47.0); HEMOGLOBIN 11.5 g/dl (12.0-15.5); LYMPH # 1.4 10^3/uL (1.5-5.0); LYMPH % 14.6 % (24.0-44.0); MEAN CORPUSCULAR HEMOGLOBIN 28.9 pg (27.0-33.0); MEAN CORPUSCULAR HGB CONC 31.8 g/dl (32.0-36.5); MONO # 0.8 10^3/uL (0.0-0.8); MONO % 8.1 % (0.0-5.0); NEUTROPHILS # 7.1 10^3/uL (1.5-8.5); NEUTROPHILS % 73.5 % (36.0-66.0); PLATELET COUNT, AUTOMATED 192 10^3/uL (150-450); RED BLOOD COUNT 3.98 10^6/uL (4.00-5.40); WHITE BLOOD COUNT 9.6 10^3/uL (4.0-10.0)
[2020-06-23 21:40] LABS: INR 1.12; PARTIAL THROMBOPLASTIN TIME 29.9 SECONDS (25.0-38.4); PROTHROMBIN TIME 14.6 SECONDS (11.8-14.0)
--- NOTE | 2020-07-12 09:13 | REP ---
LOWER EXTREMITY DOPPLER ULTRASOUND: HISTORY: Left lower extremity pain and swelling. TECHNIQUE: Real time, cummings scale and color Doppler evaluation of the left lower extremity using linear high frequency transducer. FINDINGS: Ultrasound examination of the left lower extremity deep venous structures from the common femoral vein to the popliteal vein demonstrates normal compressibility, flow and wave patterns in response to respiration and augmentation. There is no evidence for deep venous thrombosis. IMPRESSION: Negative examination. No evidence for DVT. MTDD
[2020-07-29 00:13] LABS: CREATININE FOR GFR 1.63 MG/DL (0.55-1.30); GLOMERULAR FILTRATION RATE 32.8 (>39); POTASSIUM SERUM 3.1 MEQ/L (3.5-5.1)
== END 2020-05-18 11:29 | disposition home or self-care (01) ==
LOC: M ED 09:36
DX: M25.562 Pain in left knee (principal); M16.12 Unilateral primary osteoarthritis, left hip; E11.9 Type 2 diabetes mellitus without complications; I11.0 Hypertensive heart disease with heart failure; I50.9 Heart failure, unspecified; Z86.73 Personal history of transient ischemic attack (TIA), and cerebral infarction without residual deficits; M79.89 Other specified soft tissue disorders; Z95.0 Presence of cardiac pacemaker; Z96.642 Presence of left artificial hip joint

== ENCOUNTER → 2020-05-22 | Outpatient (REF) | payer MEDICARE, OTHER ==
[~2020-05-22] MED LIST changes: -ACETAMINOPHEN 325 MG TAB As Ordered ONE
[2020-06-20 23:14] LABS: BASO % 0.4 % (0.0-1.0); EOS # 0.5 10^3/uL (0.0-0.5); HEMATOCRIT 36.1 % (36.0-47.0); HEMOGLOBIN 11.2 g/dl (12.0-15.5); LYMPH # 1.8 10^3/uL (1.5-5.0); LYMPH % 20.4 % (24.0-44.0); MEAN CORPUSCULAR HEMOGLOBIN 28.8 pg (27.0-33.0); MEAN CORPUSCULAR VOLUME 92.8 fl (80.0-96.0); MONO # 0.5 10^3/uL (0.0-0.8); MONO % 6.1 % (0.0-5.0); NEUTROPHILS # 5.7 10^3/uL (1.5-8.5); NEUTROPHILS % 66.9 % (36.0-66.0); PLATELET COUNT, AUTOMATED 229 10^3/uL (150-450); RED BLOOD COUNT 3.89 10^6/uL (4.00-5.40); WHITE BLOOD COUNT 8.6 10^3/uL (4.0-10.0)
== END ==
LOC: M WUC 12:41
PROVIDERS: ATTEND Orthopaedic Surgery
DX: Z96.652 Presence of left artificial knee joint (principal)

== ENCOUNTER → 2020-06-18 | Outpatient (CLI) | payer MEDICARE, OTHER ==
[2020-06-18 14:14] LABS: CALCIUM LEVEL 8.8 MG/DL (8.8-10.2); CREATININE FOR GFR 1.15 MG/DL (0.55-1.30); GLOMERULAR FILTRATION RATE 49.1 (>39); MAGNESIUM LEVEL 1.9 MG/DL (1.8-2.4); POTASSIUM SERUM 3.7 MEQ/L (3.5-5.1)
== END ==
LOC: M WUC 09:43
PROVIDERS: ATTEND Nurse Practitioner Family
DX: E87.6 Hypokalemia (principal)

== ENCOUNTER → 2020-06-26 | Outpatient (CLI) | payer MEDICARE, OTHER ==
[2020-06-26 18:51] LABS: HEMOGLOBIN A1c 5.5 %
== END ==
LOC: M WUC 12:06
PROVIDERS: ATTEND Nurse Practitioner Family
DX: E11.42 Type 2 diabetes mellitus with diabetic polyneuropathy (principal)

== ENCOUNTER → 2020-06-28 | Outpatient (REF) | payer MEDICARE, OTHER | LOC: M LAB REF 13:38 | PROVIDERS: ATTEND Nurse Practitioner Family | DX: R19.7 Diarrhea, unspecified (principal) ==

== ENCOUNTER → 2020-07-08 | Outpatient (CLI) | payer MEDICARE, OTHER | LOC: M PAIN 08:55 | PROVIDERS: ATTEND Nurse Practitioner Family | DX: Z79.891 Long term (current) use of opiate analgesic (principal) ==

== ENCOUNTER 2021-03-24 07:37 | Emergency (ER) | payer MEDICARE, OTHER ==
[~2021-03-24] VITALS: Ht 149.9 cm; Wt 75.0 kg
[~2021-03-24 07:37] MED LIST changes: -AMIT10TA PO; +AMIT10TA7 PO; +CYAN500T14 PO; -CYAN500T8 PO; +GABA-283 PO; -GABA-845 PO; -SIME180C PO; +SIME180C25 PO
[2021-03-24 07:38] VITALS: BP 201/82
--- NOTE | 2021-03-24 08:15 | REP ---
INDICATION: fall on thinners COMPARISON: 04/10/2020 TECHNIQUE: Axial noncontrast images from the skull base to the thoracic inlet with coronal reformations. This CT examination was performed using the following dose reduction techniques: Automated exposure control, adjustment of mA and/or kv according to the patient's size, and use of iterative reconstruction technique. FINDINGS: Atrophy with periventricular leukomalacia and microvascular ischemic changes are appreciated. The ventricles and sulci are symmetric. Mitchell-white differentiation is maintained. There is no evidence for acute intracranial hemorrhage, mass/mass effect, pathology or infarction. No extra-axial fluid collection. Calvarium is intact. Paranasal sinuses and mastoid air cells are clear. IMPRESSION: Atrophy and microvascular ischemic changes. No acute intracranial hemorrhage, infarction, or mass/mass effect. <Electronically signed by Crow Charles > 03/24/21 0870
--- NOTE | 2021-03-24 08:16 | REP ---
INDICATION: TRAUMA COMPARISON: None. TECHNIQUE: Axial noncontrast images through the facial bones to include the mandible with coronal and sagittal re-formations. FINDINGS: The osseous structures are intact and there is no evidence for fracture or dislocation. Specifically, the bilateral zygomatic arches, nasal bones, and mandible including bilateral temporomandibular joints appear normal and symmetric. The sinuses and mastoid air cells are all well aerated and clear without fluid level to suggest occult trauma. The bilateral orbits including the globes and intraconal contents appear symmetric and normal. The surrounding soft tissues are grossly unremarkable. IMPRESSION: Normal maxillofacial CT. No evidence for acute pathology or trauma/injury. <Electronically signed by Crow Charles > 03/24/21 1095
--- NOTE | 2021-03-24 08:43 | REP ---
INDICATION: fall COMPARISON: None. TECHNIQUE: AP, lateral, bilateral oblique views left wrist. FINDINGS: Evaluation is limited by significant osteopenia and osteoarthritic degenerative changes. No obvious acute fracture or dislocation identified. IMPRESSION: Osteopenia and advanced degenerative changes. No obvious acute fracture or dislocation. If the patient remains symptomatic consider re-evaluation in 5-7 days. <Electronically signed by Crow Charles > 03/24/21 0803
--- NOTE | 2021-03-24 10:10 | REPVR ---
PROCEDURE INFORMATION: Exam: CT Cervical Spine Without Contrast Exam date and time: 03/24/2021 9:34 AM Age: 75 years old Clinical indication: Injury or trauma; Fall; Blunt trauma TECHNIQUE: Imaging protocol: Computed tomography images of the cervical spine without contrast. Radiation optimization: All CT scans at this facility use at least one of these dose optimization techniques: automated exposure control; mA and/or kV adjustment per patient size (includes targeted exams where dose is matched to clinical indication); or iterative reconstruction. COMPARISON: No relevant prior studies available. FINDINGS: Bones/joints: No acute fracture. Normal alignment. Diffuse demineralization of the bones. Multilevel degenerative changes with anterior osteophyte formation, loss of disc spaces, and facet joint arthropathy, Discs/Spinal canal/Neural foramina: Posterior disc osteophyte formation at multiple levels causing mild indentation on thecal sac. Lungs: Lung apices are normal. Soft tissues: Unremarkable. IMPRESSION: No acute findings. Electronically signed by: Pattie Burris On 03/24/2021 10:10:01 AM
--- NOTE | 2021-03-24 10:17 | REP ---
INDICATION: trauma r/o scaphoid fracture. COMPARISON: Radiographs 03/24/2021. TECHNIQUE: Axial CT left wrist, sagittal and coronal reconstruction images. FINDINGS: I see no evidence of acute fracture or dislocation. There is mild chondrocalcinosis at the radiocarpal joint. There is mild joint space narrowing and subchondral sclerosis and cystic change diffusely. There is a 3 mm calcific body is seen at the base of the 1st metacarpal and another is seen adjacent to the triquetrum. No gross soft tissue abnormality is seen. IMPRESSION: No evidence of acute fracture or dislocation. Diffuse degenerative changes. <Electronically signed by Aayush Mitchell > 03/24/21 1012
[2021-03-24] MEDS ORDERED: traMADol 50 MG TAB PO ONE (10:25)
[2021-03-24] MEDS ORDERED: PILL CUTTER 1 EACH XX ONE (10:32)
== END 2021-03-24 11:04 | disposition home or self-care (01) ==
LOC: M ED 07:37
DX: S63.92XA Sprain of unspecified part of left wrist and hand, initial encounter (principal); S00.31XA Abrasion of nose, initial encounter; W01.0XXA Fall on same level from slipping, tripping and stumbling without subsequent striking against object, initial encounter; Y92.019 Unspecified place in single-family (private) house as the place of occurrence of the external cause; Y93.9 Activity, unspecified; Y99.9 Unspecified external cause status; M85.841 Other specified disorders of bone density and structure, right hand; E11.9 Type 2 diabetes mellitus without complications; I11.0 Hypertensive heart disease with heart failure; I25.10 Atherosclerotic heart disease of native coronary artery without angina pectoris; J44.9 Chronic obstructive pulmonary disease, unspecified; Z86.73 Personal history of transient ischemic attack (TIA), and cerebral infarction without residual deficits; Z95.0 Presence of cardiac pacemaker; Z88.1 Allergy status to other antibiotic agents; Z88.2 Allergy status to sulfonamides; Z88.8 Allergy status to other drugs, medicaments and biological substances; Z79.01 Long term (current) use of anticoagulants; Z79.82 Long term (current) use of aspirin; Z79.899 Other long term (current) drug therapy